=== PATIENT | male | born 1955 | race Caucasian/White ===

== ENCOUNTER 2019-05-08 12:10 | Day surgery (SDC) | payer MEDICAID ==
[~2019-05-08] VITALS: Ht 185.4 cm; Wt 127.0 kg
[2019-05-08] MEDS ORDERED: LIDOCAINE 1% INJ 20 ML 20 ML VIAL ONE (12:16)
[2019-05-08] MEDS ORDERED: HEParin (CATH LAB) 2,000 ML IV ONE (12:16)
[2019-05-08] MEDS ORDERED: NS IV 1000 ML 1,000 ML ONE (12:16)
[2019-05-08] MEDS ORDERED: NS IV 1000 ML 1,000 ML IV SCH ×2 (12:30→15:32)
[2019-05-08 12:42] VITALS: BP 145/88
[2019-05-08 12:49] LABS: HEMOGLOBIN 15.4 G/DL (13.3-17.7); MEAN PLATELET VOLUME 10.1 FL (7.4-10.4); RED CELL DISTRIBUTION WIDTH 14.1 % (10.0-14.5); WHITE BLOOD COUNT 10.2 10^3/uL (4.3-11.0)
[2019-05-08] MEDS ORDERED: PANT40TA2 PO (13:11)
[2019-05-08] MEDS ORDERED: LISI1TAB8 PO (13:11)
[2019-05-08] MEDS ORDERED: METF-399 PO (13:11)
[2019-05-08] MEDS ORDERED: ASPI-586 PO (13:11)
[2019-05-08] MEDS ORDERED: IBUP-2055 PO (13:11)
[2019-05-08] MEDS ORDERED: ACET-93 PO (13:11)
[2019-05-08] MEDS ORDERED: GLYB5TAB6 PO (13:11)
[2019-05-08] MEDS ORDERED: AMLO5TAB4 PO (13:11)
[2019-05-08] MEDS ORDERED: ATOR20TA66 PO (13:11)
[2019-05-08] MEDS ORDERED: METO-370 PO (13:11)
--- NOTE | 2019-05-08 13:11 | NUR ---
SPOKE WITH PATIENT (HE BROUGHT IN HIS BOTTLES) TO COMPLETE THE MED REC. ALL HIS BOTTLES HAD GOOD DATING AND WERE CURRENT. OTC MEDS: TYLENOL 500M TABS Q 8 H PRN ASPIRIN 81M DAILY IBUPROFEN 200M TS Q 8 H PRN
[2019-05-08 13:14] LABS: ALANINE AMINOTRANSFERASE 28 U/L (0-55); ALBUMIN 4.4 GM/DL (3.2-4.5); ALKALINE PHOSPHATASE 76 U/L (40-136); BILIRUBIN,TOTAL 0.8 MG/DL (0.1-1.0); BUN/CREATININE RATIO 13; CALCIUM 9.7 MG/DL (8.5-10.1); CARBON DIOXIDE 27 MMOL/L (21-32); CHLORIDE 101 MMOL/L (98-107); CHOLESTEROL 162 MG/DL (< 200); CREATININE SERUM 1.06 MG/DL (0.60-1.30); GFR ESTIMATED > 60; GLUCOSE 163 MG/DL (70-105); HDL CHOLESTEROL 31 MG/DL (40-60); POTASSIUM 3.8 MMOL/L (3.6-5.0); SODIUM 140 MMOL/L (135-145); TOTAL PROTEIN 7.8 GM/DL (6.4-8.2); TRIGLYCERIDES 318 MG/DL (<150); VLDL CHOLESTEROL 64 MG/DL (5-40)
[2019-05-08 13:16] LABS: PROTHROMBIN TIME PATIENT 13.1 SEC (12.2-14.7)
[2019-05-08] MEDS ORDERED: MIDAZOLAM 5 MG/5 ML (VERSED) VIAL ONE (14:24)
[2019-05-08] MEDS ORDERED: fentaNYL INJECTION 100 MCG/2 ML AMP ONE (14:24)
--- NOTE | 2019-05-08 14:53 | Cardiac Procedure Note-CS/ASA ---
Pre-Procedure Note Pre-Op Procedure Note H&P Reviewed The H&P was reviewed, patient examined and no changes noted. Date H&P Reviewed: May 08, 2019 Time H&P Reviewed: 14:53 Conscious Sedation Pre-Proced Time 14:53 ASA Score 3 For ASA 3 and 4: Consider anesthesia and medical clearance. Also, for patients with a history of failed moderate sedation consider anesthesia. Airway Lungs Heart ASA score ASA 1: a normal healthy patient ASA 2: a patient with a mild systemic disease (mid diabetes, controlled hypertension, obesity ASA 3: a patient with a severe systemic disease that limits activity (angina, COPD, prior Myocardial infarction) ASA 4: a patient with an incapacitating disease that is a constant threat to life (CHF, renal failure) ASA 5: a moribund patient not expected to survive 24 hrs. (ruptured aneurysm) ASA 6: a declared brain- patient whose organs are being harvested. For emergent operations, add the letter E after the classification Mallampati Classification Grade 2 Sedation Plan Analgesia, Amnesia, Plan communicated to team members, Discussed options with patient/fam, Discussed risks with patient/fam The patient is an appropriate candidate to undergo the planned procedure, sedation, and anesthesia. The patient immediately re-assessed prior to indication. VIVEK KATZ MD FACP FAC CCDS May 08, 2019 14:53
[2019-05-08] MEDS ORDERED: ATOR80TA76 PO (15:38)
[2019-05-08] MEDS ORDERED: ASPI-999 PO (15:38)
[2019-05-08] MEDS ORDERED: CLOP75TA69 PO (15:38)
--- NOTE | 2019-05-08 15:39 | Discharge Inst-Cardiology ---
Discharge Inst-Cardiac Problems Reviewed?: Yes Discharge Medications New Medications: Aspirin (Aspirin) 81 Mg Tab.chew 81 MG PO DAILY, #90 TAB 3 Refills Atorvastatin Calcium (Atorvastatin Calcium) 80 Mg Tablet 80 MG PO HS, #90 TAB 3 Refills Clopidogrel Bisulfate (Plavix) 75 Mg Tablet 75 MG PO DAILY, #90 TAB 3 Refills Continued Medications: Acetaminophen (Acetaminophen) 500 Mg Tablet 2000 MG PO Q8H PRN for PAIN-MILD, TAB Amlodipine Besylate (Norvasc) 5 Mg Tablet 5 MG PO DAILY, TAB Glyburide (Glyburide) 5 Mg Tablet 5 MG PO BID WITH MEALS, TAB Lisinopril/Hydrochlorothiazide (Lisinopril-Hctz 20-12.5 mg Tab) 1 Each Tablet 1 EACH PO DAILY, TAB Metoprolol Succinate (Metoprolol Succinate) 50 Mg Tab.er.24h 50 MG PO DAILY, TAB Pantoprazole Sodium (Protonix) 40 Mg Tablet.dr 40 MG PO HS, TAB Discontinued Medications: Aspirin (Aspir 81) 81 Mg Tablet.dr 81 MG PO DAILY, TAB Atorvastatin Calcium (Atorvastatin Calcium) 20 Mg Tablet 20 MG PO DAILY, TAB Ibuprofen (Ibuprofen) 200 Mg Tablet 800 MG PO Q8H PRN for PAIN-MILD, TAB Metformin HCl (Metformin HCl) 1,000 Mg Tablet 1000 MG PO BID WITH MEALS, TAB Patient Instructions Patient Instructions: RESUME METFORMIN IN PREVIOUS HOME DOSE STARTING ON THE MORNING OF 05/11/19 VIVEK KATZ MD FACP FAC CCDS May 08, 2019 15:39
--- NOTE | 2019-05-08 15:40 | Discharge Inst-Post CATH ---
Discharge Inst-CATH/EP Problems Reviewed?: Yes Post Cardiac Cath/EP D/C Inst Follow Up/Plan F/u with Dr Juarez in 1-2 weeks ACTIVITY * Go Home directly and rest. * Limit activity of the leg (or wrist if it was used) for 7 days including aerobics, swimming, jogging, bicycling, etc. * Restrict stair-climbing for 7 days if possible, if not, climb up with your non-cath leg, then bring together on the same step. * Avoid lifting, pushing, pulling or excessive movement of the affected extremity for 7 days. * Customary sexual activity may be resumed after 2 days-use caution not to use a position that strains or causes pain to the affected extremity. * No driving for 24 hours. * NO SMOKING. * Avoid straining for bowel movements for 7 days. * Gentle walking on level ground is allowed. * Returning to work will depend on the type of procedure and the results. Your doctor will discuss this with you. CALL YOUR DOCTOR FOR ANY OF THE FOLLOWING: *If bleeding from the puncture site occurs- Apply gentle pressure to site with clean cloth and call your doctor or EMS. * If a knot or lump forms under the skin, increases in size, or causes pain. * If bruising appears to be worsening or moving further down your leg instead of disappearing. * Temperature above 101 F. CARE OF YOUR GROIN INCISION; * Bruising or purple discoloration of the skin near the puncture site is common. * You may shower only, no bathtub bathing for 5 days. Be careful to avoid slipping as your leg may feel stiff. * If a closure device was used on your femoral artery, please see the attached guide regarding care of the device and your leg. * Leave dressing on FOR 24 hours. CARE OF YOUR WRIST INCISION; * Bruising or purple discoloration of the skin near the puncture site is common. * You may shower. * DO NOT submerge wrist. * Leave dressing on FOR 24 hours. VIVEK JUAREZ MD FACP FAC CCDS May 08, 2019 15:40
[2019-05-08] MEDS ORDERED: CLOPIDOGREL 75 MG (PLAVIX) TABLET PO NR (15:45)
[2019-05-08] MEDS ORDERED: PATIENT MAY USE OWN MEDS, ALL PO SCH (15:45)
[2019-05-08 15:51] VITALS: BP 117/73
--- NOTE | 2019-05-08 15:57 | CARDIAC CATHETERIZATION ---
DATE OF SERVICE: 05/08/2019 The patient is a 63-year-old gentleman who is known to have multiple coronary artery disease risk factors and who has recently been experiencing symptoms of chest discomfort. Cardiac catheterization was recommended for further evaluation. Informed consent was obtained. PROCEDURE: He was brought to the cardiac catheterization laboratory in a fasting state. Right groin was prepared and draped in the usual sterile fashion. Modified Seldinger technique was used to advance a 5-Taiwanese sheath into the right femoral vein and a 5-Taiwanese sheath in the right femoral artery. We used 5-Taiwanese JL4 catheter for left coronary angiography and 5-Taiwanese JR4 catheter for right coronary angiography. A 5-Taiwanese pigtail catheter was used for left heart catheterization and left ventricular angiography. The pigtail was then pulled back and removed. Angiography of the right femoral artery was carried out through the sheath. Mynx was used to achieve arterial hemostasis. Manual pressure was used to achieve venous hemostasis. He tolerated the procedure well. HEMODYNAMICS: Left ventricular end-diastolic pressure following coronary angiography was 7 mmHg. There was no significant pressure gradient on pullback across the aortic valve. Ascending aortic pressure was 108/69 with a mean of 85 mmHg. LEFT VENTRICULAR ANGIOGRAPHY: Left ventricular angiography was carried out in the right anterior oblique projection. Global left ventricular systolic function normal. No regional wall motion abnormalities seen. Left ventricular ejection fraction approximately 60%. CORONARY ANGIOGRAPHY: Diffuse coronary calcification is present. The left anterior descending artery, in particular, is heavily calcified. The left anterior descending artery has 50% to 60% mid vessel stenosis. The first and second diagonal branches of the left circumflex artery are of a small caliber and have up to 70% ostial and proximal stenosis. A ramus intermedius artery is of a small caliber and has 70% proximal stenosis. Left circumflex artery has 70% distal stenosis following the origin of a distal obtuse marginal. The vessel here is of a small caliber. Right coronary artery is dominant and has a 70% stenosis in its terminal posterolateral and multiple 70% stenosis in its posterior descending branch. CONCLUSIONS: 1. Diffuse moderately severe coronary artery disease with stenoses of up to 70% in the mid left anterior descending, distal left circumflex and distal right coronary. Small caliber diagonal branches also have up to 70% stenosis. 2. Normal global left ventricular systolic function with ejection fraction of 60%. 3. Normal left ventricular end-diastolic pressure. DISCUSSION AND RECOMMENDATIONS: Based on the results of the study, it appears appropriate to continue a conservative approach. Risk factor modification has been reviewed with him. Medications will be titrated on an outpatient basis. Outpatient followup is advised. Risk factor modification has been discussed with him in detail. Job ID: [id number] DocumentID: [id number] Dictated Date: 05/08/2019 15:29:45 Uniform Attendant Date: 05/08/2019 15:57:24 Dictated By: VIVEK KATZ MD, MA, FACP, FACC, MTDD
[2019-05-08 16:00] VITALS: BP 117/73
[2019-05-08 17:00] VITALS: BP 122/74
[2019-05-08 19:00] VITALS: BP 141/80
[2019-05-08 20:00] VITALS: BP 148/83
== END 2019-05-08 20:27 | disposition home or self-care (01) ==
LOC: CATH 12:10 → ICU 15:52 → CATH 20:27
PROVIDERS: ATTEND Internal Medicine Cardiovascular Disease
DX: I25.10 Atherosclerotic heart disease of native coronary artery without angina pectoris (principal); E11.621 Type 2 diabetes mellitus with foot ulcer; L97.529 Non-pressure chronic ulcer of other part of left foot with unspecified severity; R55 Syncope and collapse; E78.5 Hyperlipidemia, unspecified; E66.9 Obesity, unspecified; Z68.37 Body mass index [BMI] 37.0-37.9, adult; Z79.82 Long term (current) use of aspirin; Z79.891 Long term (current) use of opiate analgesic; Z90.49 Acquired absence of other specified parts of digestive tract; Z82.49 Family history of ischemic heart disease and other diseases of the circulatory system; Z83.3 Family history of diabetes mellitus; Z80.9 Family history of malignant neoplasm, unspecified; Z83.511 Family history of glaucoma
CPT/HCPCS: 36415; 80053; 80061; 85027; 85610; 85730; 87081; 93458

== ENCOUNTER → 2020-03-24 | Outpatient (CLI) | payer MEDICAID ==
[~2020-03-24] MED LIST: ACET-93 PO; AMLO5TAB4 PO; ASPI-586 PO; ASPI-999 PO; ATOR20TA66 PO; ATOR80TA76 PO; CLOP75TA69 PO; GLYB5TAB6 PO; IBUP-2473 PO; LISI1TAB25 PO; METF-399 PO; METO50TA7 PO; PANT40TA2 PO
== END ==
LOC: WOUNDCARE 12:49
PROVIDERS: ATTEND Surgery
DX: E11.621 Type 2 diabetes mellitus with foot ulcer (principal); E11.52 Type 2 diabetes mellitus with diabetic peripheral angiopathy with gangrene; E11.42 Type 2 diabetes mellitus with diabetic polyneuropathy; E11.65 Type 2 diabetes mellitus with hyperglycemia; I70.262 Atherosclerosis of native arteries of extremities with gangrene, left leg; L97.522 Non-pressure chronic ulcer of other part of left foot with fat layer exposed
CPT/HCPCS: 11042; A6196; G0463

== ENCOUNTER → 2020-05-07 | Outpatient (CLI) | payer MEDICAID ==
[2020-05-08 15:34] LABS: GFR ESTIMATED > 60
--- NOTE | 2020-05-09 08:09 | Diagnostic Imaging Report ---
NAME: Caesar Chandler. : 1955. EXAMINATION: CT angiogram abdomen with runoff on 05/07/2020. INDICATION: Peripheral vascular disease. TECHNIQUE: Axial imaging through the abdomen, pelvis, and bilateral lower extremities was performed after the administration of intravenous contrast utilizing CT angiography protocol. Multiplanar, 3D, and MIP reformations were also performed. COMPARISON: No prior studies are available for comparison. FINDINGS: The abdominal aorta is of normal caliber. The origin to the celiac artery is widely patent. There is a moderate amount of plaquing in the proximal aspect of the superior mesenteric artery but no high-grade stenosis is seen. The inferior mesenteric artery is patent. There are single renal arteries bilaterally. Both renal artery origins contain a large amount of calcified plaque but no high-grade stenosis is seen. There is a retroaortic left renal vein. The common iliacs demonstrate some mild calcified plaque but no high-grade stenosis is seen. The external iliac arteries are widely patent bilaterally. There is mild plaquing in both common femoral arteries but no high-grade stenosis is identified. The origins to the SFA and profunda femoris on the right are widely patent. The right superficial femoral artery demonstrates some mild generalized plaque but no high-grade stenosis is identified. The right popliteal artery also shows some atherosclerotic changes but no high-grade stenosis is identified. The proximal right anterior tibial artery is patent but terminates in the proximal calf. The tibioperoneal trunk is small but patent. The posterior tibial and peroneal arteries are very small but are patent to the level of the ankle. The origins to the left SFA and profunda femoris are widely patent. The left SFA does show diffuse mild atherosclerotic changes but no high-grade stenosis or occlusion is seen. There is some mild disease in the popliteal as well but no high-grade stenosis or occlusion is detected. The anterior tibial artery is patent proximally. This vessel appears to be very small and shows multifocal irregularity but does appear to be patent all the way to the foot. The tibioperoneal trunk is small but patent. The posterior tibial and peroneal arteries are small vessels but are patent to the ankle. IMPRESSION: Mild diffuse atherosclerotic changes are identified within the bilateral lower extremity arterial systems. There is two-vessel runoff to the right ankle via the posterior tibial and peroneal arteries. There is three-vessel runoff to the left ankle. Dictated by: Dictated on workstation # [id number]
== END ==
LOC: RAD FS 11:18
PROVIDERS: ATTEND Nurse Practitioner
DX: I70.203 Unspecified atherosclerosis of native arteries of extremities, bilateral legs (principal); E11.9 Type 2 diabetes mellitus without complications
CPT/HCPCS: 36415; 75635; 82565

== ENCOUNTER → 2020-08-01 | Outpatient (CLI) | payer MEDICAID ==
[~2020-08-01] MED LIST changes: -LISI1TAB25 PO; +LISI1TAB46 PO; +RT-ALBUTEROL SULF 2.5 MG/3 ML PRE-MIX VIAL INH ONE
== END ==
LOC: RT 14:45
PROVIDERS: ATTEND Nurse Practitioner Family
DX: R06.02 Shortness of breath (principal)
CPT/HCPCS: 94060; 94726; 94729

== ENCOUNTER → 2020-08-19 | Outpatient (CLI) | payer MEDICAID ==
[~2020-08-19] MED LIST changes: +BARIUM SUSPENSION 2.1% (VANILLA SILQ) 450 ML PO ONE; -RT-ALBUTEROL SULF 2.5 MG/3 ML PRE-MIX VIAL INH ONE
--- NOTE | 2020-08-19 12:03 | Diagnostic Imaging Report ---
PROCEDURE: CT chest and abdomen without contrast. TECHNIQUE: Axial images were obtained from the thoracic inlet through the iliac crest without the administration of intravenous contrast. Auto Exposure Controls were utilized during the CT exam to meet ALARA standards for radiation dose reduction. INDICATION: Chronic, intermittent shortness of breath and upper abdominal pressure for [address] CHEST: No definite axillary lymphadenopathy is seen. No definite mediastinal or hilar lymphadenopathy is detected. There are coronary arterial calcifications present. No pericardial or pleural fluid is identified. Pulmonary parenchymal evaluation does show some calcified nodules in the right lower lobe, consistent with granulomas. No noncalcified nodules or masses are seen. There are no infiltrates detected. The central airways appear to be patent. IMPRESSION: Essentially unremarkable noncontrast CT of the chest. CT ABDOMEN: The liver is unremarkable. The gallbladder is surgically absent. No biliary ductal dilatation is seen. Pancreas and spleen are unremarkable. No adrenal mass is detected. No renal calculi or hydronephrosis is detected. There is a low-density lesion involving the left kidney measuring 2.4 cm in size and suggestive of a cyst. Aorta is calcified but non-aneurysmal. The visualized bowel loops are normal caliber. There is no free fluid or fluid collection. Bony structures are unremarkable. IMPRESSION: 1. Essentially unremarkable noncontrast CT of the abdomen apart from a small left renal cyst. No acute feature is detected. Dictated by: Dictated on workstation # [id number]
== END ==
LOC: RAD FS 09:39
PROVIDERS: ATTEND Nurse Practitioner Family
DX: N28.1 Cyst of kidney, acquired (principal); R06.02 Shortness of breath
CPT/HCPCS: 71250; 74150

== ENCOUNTER → 2021-04-15 | Outpatient (CLI) | payer MEDICAID ==
[~2021-04-15] MED LIST changes: -BARIUM SUSPENSION 2.1% (VANILLA SILQ) 450 ML PO ONE; +GLBR5T PO; -GLYB5TAB6 PO
--- NOTE | 2021-04-15 16:38 | Diagnostic Imaging Report ---
CLINICAL INDICATION: Patient with degenerative disk disease. EXAM: MRI of the lumbar spine performed without IV contrast. Sequences include sagittal T2, sagittal T1, sagittal T2 fat-sat, and axial T2. COMPARISON: None. FINDINGS: There is no acute lumbar spine fracture. There is chronic bilateral L5 spondylolysis with roughly 6 mm of grade 1 anterolisthesis of L5 on S1. There are hypertrophic spurs throughout the lumbar spine and facet arthropathy. The visualized portions of the distal thoracic spinal cord, conus medullaris, and cauda equina nerve roots are unremarkable. The conus medullaris tip is seen at the upper L1 vertebral body level. There is no significant paraspinal soft tissue abnormality. L1-L2: There is a mild diffuse disk bulge with mild loss of disk space height. There is cbfa-qu-vrfzozqo bilateral facet arthropathy. There is no significant central canal narrowing. There is no significant neural foramen narrowing. L2-L3: There is a diffuse disk bulge with severe loss of disk space height. There is nipl-jx-nuttbcqg bilateral facet arthropathy. There are disk herniations extending into the right foraminal region and far right lateral region. There is iettqrxg-av-znmqtz right neural foramen narrowing and mild left neural foramen narrowing. There is racq-up-vtbmoeas central canal stenosis. L3-L4: There is a mild diffuse disk bulge with hypertrophic anterior disk spurs. There is moderate bilateral facet arthropathy. There is no significant central canal stenosis. There is mild right neural foramen narrowing and no significant left neural foramen narrowing. L4-L5: There is grade 1 retrolisthesis of L4 on L5. There is a diffuse disk bulge with moderate loss of disk space height. There are disk spurs which extend posteriorly and into the foraminal regions bilaterally. There is xdijeatq-jg-kmdeko bilateral neural foramen narrowing. There is no significant central canal stenosis. L5-S1: There is diffuse disk bulge with slight uncovering of the posterior aspect of the disk. There is severe bilateral facet arthropathy/hypertrophy. Questionable postop changes or laminectomy in the right L5-S1 region versus chronic bony deformity. There is no significant central canal stenosis. There is severe left neural foramen narrowing and moderate to severe right neural foramen narrowing. IMPRESSION: 1: There is moderate to severe multilevel lumbar spine degenerative disease with diffuse disk bulges, disk spurs, and facet arthropathy. 2: There is chronic bilateral L5 spondylolysis with grade 1 anterolisthesis of L5 on S1. 3: There is grade 1 retrolisthesis of L4 on L5. Dictated by: Dictated on workstation # [id number]
== END ==
LOC: RAD 14:00
PROVIDERS: ATTEND Family Medicine
DX: M47.816 Spondylosis without myelopathy or radiculopathy, lumbar region (principal); M51.26 Other intervertebral disc displacement, lumbar region; M51.36 Other intervertebral disc degeneration, lumbar region; M43.17 Spondylolisthesis, lumbosacral region
CPT/HCPCS: 72148

== ENCOUNTER → 2021-04-24 | Outpatient (CLI) | payer MEDICAID | LOC: WOUNDCARE 13:51 | PROVIDERS: ATTEND Orthopaedic Surgery Hand Surgery | DX: E11.621 Type 2 diabetes mellitus with foot ulcer (principal); L97.521 Non-pressure chronic ulcer of other part of left foot limited to breakdown of skin; L84 Corns and callosities; I73.9 Peripheral vascular disease, unspecified; I87.2 Venous insufficiency (chronic) (peripheral) | CPT/HCPCS: 97597; A6197; G0463 ==

== ENCOUNTER → 2021-05-05 | Outpatient (CLI) | payer MEDICAID | LOC: WOUNDCARE 14:32 | PROVIDERS: ATTEND Surgery | DX: E11.621 Type 2 diabetes mellitus with foot ulcer (principal); L97.521 Non-pressure chronic ulcer of other part of left foot limited to breakdown of skin; L84 Corns and callosities; I73.9 Peripheral vascular disease, unspecified; I87.2 Venous insufficiency (chronic) (peripheral) | CPT/HCPCS: 99212 ==

== ENCOUNTER 2021-06-25 14:42 | Emergency (ER) | payer MEDICAID ==
--- OUTSIDE RECORDS SUMMARY | 2021-06-25 14:47 | XMS REPORT | Clinical Summary ---
Author Author [facility] Organization [facility] Address Unknown Phone Unavailable Care Team Providers Care Sports Official Name Role Phone Self, Willi PATTERSON PCP Source Comments Some departments are not documenting in the electronic medical record. If you d o not see the information that you expected, contact Release of Information in merged with [facility] [employer] Information Management department at [phone] for further assistan ce in locating additional records.[facility] Allergies No Known Active Allergies Medications End Date Status Medication Sig Dispensed Refills Start Date Active atorvastatin (LIPITOR) 10 TK 1 T PO D 1 9/201 mg tablet 8 Active glyBURIDE (DIABETA) 5 mg 1 tablet 8 Active lisinopriL-hydrochlorothi 1 tablet 2 azide (ZESTORETIC) 20-25 daily. 8 mg tablet Active metFORMIN (GLUCOPHAGE) TK 1 T PO BID 0 01 1,000 mg tablet WC [address] TK 1 T PO D 1 (PROTONIX) 40 mg tablet 8 Active rosuvastatin (CRESTOR) 20 Take 20 mg by 0 12/19 mg tablet mouth daily. 1 Active vitamins, multiple tablet Take 1 tablet 0 by mouth daily. Active amLODIPine (NORVASC) 5 mg Take 5 mg by 0 10/21 tablet mouth daily. 1 Active clopiDOGrel (PLAVIX) 75 Take 75 mg by 0 mg tablet mouth daily. Active metoprolol tartrate Take 50 mg by 0 (LOPRESSOR) 50 mg tablet mouth. Active linaCLOtide (LINZESS) 72 Take 72 mcg 0 mcg capsule by mouth daily. 05/29/2021 Discontinued plecanatide (TRULANCE) 3 Take 1 tablet 0 mg tabIndications: by mouth constipation predominant daily. irritable bowel syndrome Indications: irritable bowel syndrome with constipation 05/29/2021 Discontinued linaclotide (LINZESS) 290 Take one 30 capsule 1 mcg capsuleIndications: capsule by 1 chronic idiopathic mouth daily. constipation Indications: chronic idiopathic constipation Active Problems Not on file Encounters Care Team Description Date Type Specialty Davy Iraheta MD Medication Question 05/29/2021 Telephone Gastroenterology from Last 3 Months Medical History Medical History Date Comments Irritable bowel disease Social History Date Tobacco Use Types Packs/Day Years Used Never Smoker Smokeless Tobacco: Never Used Comments Alcohol Use Standard Drinks/Week Not Currently 0 (1 standard drink = 0.6 o z pure alcohol) Sex Assigned at Date Recorded Not on file Last Filed Vital Signs Reading Time Taken Comments Vital Sign 139/86 04/17/2018 1:11 PM CDT Blood Pressure 89 04/17/2018 1:11 PM CDT Pulse - - Temperature 16 04/17/2018 1:11 PM CDT Respiratory Rate - - Oxygen Saturation - - Inhaled Oxygen Concentration 145.2 kg (320 lb) 04/17/2018 1:11 PM CDT Weight 185.4 cm (6' 1") 04/17/2018 1:11 PM CDT Height 42.22 04/17/2018 1:11 PM CDT Body Mass Index Plan of Treatment Health Maintenance Due Date Last Done Comments HIV SCREENING 1971 DTAP/TDAP VACCINES (1 - 1974 Tdap) HEPATITIS C SCREENING 1974 PHYSICAL (COMPREHENSIVE) 1974 EXAM COLORECTAL CANCER 2006 SCREENING SHINGLES RECOMBINANT 2006 VACCINE (1 of 2) INFLUENZA VACCINE 04/19/2021 Results Not on filefrom Last 3 Months Insurance Type Payer Benefit Subscriber ID Effective Phone Address Plan / Dates Group Medicaid [employer] [place] [place] [employer] [id number] 2017-P [employer]AN [place] [address] [place] (Home) [place] [phone] 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
--- OUTSIDE RECORDS SUMMARY | 2021-06-25 14:47 | XMS REPORT | Encounter Summary ---
Author Author [facility] Organization [facility] Address Unknown Phone Unavailable Care Team Providers Care Ferryboat Operator Name Role Phone Self, Willi PATTERSON PCP Reason for Visit * Reason Onset Date Comments Medication Question 05/29/2021 Encounter Details Care Team Description Date Type Department Davy Iraheta MD [address] [place] [address] Medication Question 05/29/2021 Telephone Gastroenterology: [facility] [address] Social History Date Tobacco Use Types Packs/Day Years Used Never Smoker Smokeless Tobacco: Never Used Comments Alcohol Use Standard Drinks/Week Not Currently 0 (1 standard drink = 0.6 o z pure alcohol) Sex Assigned at Date Recorded Not on file documented as of this encounter Functional Status Date of Assessment Functional Status Response 04/17/2018 Does the patient have a hearing impairment: No 04/17/2018 Does the patient have a visual impairment: Yes 04/17/2018 Does the patient have impaired ambulation: No 04/17/2018 Does the patient have an activity of daily living Ye s (ADL) impairment: 04/17/2018 Does the patient have an instrumental activity of No daily living (IADL) impairment: Date of Assessment Cognitive Status Response 04/17/2018 Does the patient have a cognitive impairment: No documented as of this encounter Miscellaneous Notes * Telephone Encounter - Chey Cortes RN - 05/29/2021 10:54 AM CDT VM from pt with questions on linzess Rx. Call returned to pt. Pt wanting to clarify dosage as he just received 290 mcg bu t was taking 72. Discussed with pt that we did ordered 290 mcg and unsure why he was receiving 290 mcg. Pt reports that he has been doing well with taking the 72 mcg QD and would like to continue this dosage. Instructed pt that we would up date his med list to make sure further refills are for linzess 72 mcg. Pt denies need for refills at this time. Pt verbalized understanding with no further ques tions or concerns at this time. documented in this encounter Plan of Treatment Not on filedocumented as of this encounter Visit Diagnoses Diagnosis Chronic constipation Unspecified constipation Abdominal pain, RUQ Abdominal pain, right upper quadrant documented in this encounter Discontinued Medications Start Date End Date Medication Sig Discontinue Reason 05/29/2021 plecanatide (TRULANCE) 3 Take 1 mg tabIndications: tablet by constipation predominant mouth daily. irritable bowel syndrome Indications: irritable bowel syndrome with constipation 01/21/2021 05/29/2021 linaclotide (LINZESS) 290 Take one mcg capsuleIndications: capsule by chronic idiopathic mouth daily. constipation Indications: chronic idiopathic constipation documented as of this encounter Historical Medications * This list may reflect changes made after this encounter. Start Date End Date Medication Sig Dispensed Refills linaCLOtide (LINZESS) 72 Take 72 mcg 0 mcg capsule by mouth daily. added in this encounter Additional Health Concerns Assessment Noted Time A fall risk assessment has been completed for the pat ient 04/17/2018 1:11 PM CDT documented as of this encounter
[2021-06-25] MEDS ORDERED: NS IV 1000 ML 1,000 ML IV STA (14:52)
[2021-06-25] MEDS ORDERED: ONDANSETRON 4 MG/2 ML (SDV) Z0FRAN IVP STA (14:52)
[2021-06-25] MEDS ORDERED: PANTOPRAZOLE 40 MG (PROTONIX) VIAL IV STA (14:54)
[2021-06-25] MEDS ORDERED: ASPIRIN 81 MG CHEW (CHILDREN'S ASA) PO ONE (15:00)
[2021-06-25] MEDS ORDERED: morphine INJ 10 MG/ML 1ML (SYR OR VIAL) IVP ONE (15:00)
[2021-06-25] MEDS: NITROGLYCERIN 0.4 MG SL TABS BTL 25'S SL PRN ×2 (15:01→15:34)
--- NOTE | 2021-06-25 15:03 | ED Chest Pain ---
General Chief Complaint: Chest Pain Stated Complaint: CHEST/LT ARM PAIN Source: patient, old records History of Present Illness Date Seen by Provider: Jun 25, 2021 Time Seen by Provider: 14:43 Initial Comments 65 yo male presenting with complaint of chest pain radiating to left arm with numbness and tingling in left arm. He states this started around 1400 when he was working on his trailer. He has nausea, shortness of breath, diaphoresis, feeling of indigestion. He reports symptoms are worse with exertion, such as walking in to the ED from his vehicle. He has history of cholesterol plaque build up in his arteries and states Dr. Juarez had put him on Plavix (Clopidogrel) and Metoprolol. He took it until there were no more refills and Dr. Juarez did not refill it anymore so he stopped taking it. He has not taken anything for his symptoms. He has diabetes, high blood pressure, hypercholesterolemia. Timing/Duration: 1 hour (about 45 min to an hour), changing over time (improved with rest but worsens with exertion) Severity/Quality: moderate, ingestion Location: substernal, epigastric Radiation: arms (left) Activities at Onset: activity (working on trailer) Prior CP/Workup: angina, cardiac cath (2019 diffuse atherosclerotic build up 70% or more) Modifying Factors: worse with exercise; improves with rest ASA po WORLD DESIGNER: No NTG SL WORLD DESIGNER: No Associated Symptoms: No abdominal pain; back pain (chronic back pain), diaphoresis; No dizziness, No edema; fatigue; No fever/chills, No headache; heartburn, nausea/vomiting (nausea without vomiting); No rash; shortness of breath; No swelling/lump in chest, No syncope Allergies and Home Medications Allergies Coded Allergies: No Known Allergies (Verified Allergy, Unknown, 05/08/19) Patient Home Medication List Home Medication List Reviewed: Yes Acetaminophen (Acetaminophen) 500 Mg Tablet, 2,000 MG PO Q8H PRN for PAIN-MILD, (Reported) Entered as Reported by: BERENICE OTTO on 05/08/19 1311 Amlodipine Besylate (Norvasc) 5 Mg Tablet, 5 MG PO DAILY, (Reported) Entered as Reported by: BERENICE OTTO on 05/08/19 1311 Aspirin (Aspirin) 81 Mg Tab.chew, 81 MG PO DAILY Prescribed by: VIVEK JUAREZ on 05/08/19 1538 Atorvastatin Calcium (Atorvastatin Calcium) 80 Mg Tablet, 80 MG PO HS Prescribed by: VIVEK JUAREZ on 05/08/19 153 Clopidogrel Bisulfate (Plavix) 75 Mg Tablet, 75 MG PO DAILY Prescribed by: VIVEK JUAREZ on 05/08/19 153 Clopidogrel Bisulfate (Clopidogrel) 75 Mg Tablet, 75 MG PO DAILY Prescribed by: DANIEL CUNHA on 06/25/21 182 Glyburide (Glyburide) 5 Mg Tablet, 5 MG PO BID WITH MEALS, (Reported) Entered as Reported by: BERENICE OTTO on 05/08/19 131 Lisinopril/Hydrochlorothiazide (Lisinopril-Hctz 20-12.5 mg Tab) 1 Each Tablet, 1 EACH PO DAILY, (Reported) Entered as Reported by: BERENICE OTTO on 05/08/19 131 Metoprolol Succinate (Metoprolol Succinate) 50 Mg Tab.er.24h, 50 MG PO DAILY, (Reported) Entered as Reported by: BERENICE OTTO on 05/08/19 131 Metoprolol Succinate (Metoprolol Succinate) 50 Mg Tab.er.24h, 50 MG PO DAILY Prescribed by: DANIEL CUNHA on 06/25/21 182 Pantoprazole Sodium (Protonix) 40 Mg Tablet.dr, 40 MG PO HS, (Reported) Entered as Reported by: BERENICE OTTO on 05/08/19 131 Review of Systems Review of Systems Constitutional: No chills, No fever EENTM: No Symptoms Reported Respiratory: See HPI, SOA With Exertion, SOA at Rest Cardiovascular: See HPI, Chest Pain Gastrointestinal: Nausea; Denies Vomiting Genitourinary: No Symptoms Reported Musculoskeletal: see HPI Skin: No rash Psychiatric/Neurological: Denies Headache Past Tyxolmb-Oqxafq-Dohszu Hx Patient Social History Tobacco Use?: No Use of E-Cig and/or Vaping dev: No Substance use?: No Alcohol Use?: No Immunizations Up To Date First/Initial COVID19 Vaccinat: 2020 Second COVID19 Vaccination Kevin: 2020 COVID19 Vaccine Professional Skater: Thea Past Medical History Gallbladder Respiratory: No Currently Using CPAP: No Currently Using BIPAP: No Cardiac: Yes High Cholesterol, Hypertension Neurological: No Genitourinary: No Gastrointestinal: No Cancer: No Blood Disorders: No Physical Exam Vital Signs Vital Signs - First Documented 06/25/21 14:51 Temp 36.2 Pulse 115 Resp 21 B/P (MAP) 150/99 (116) Pulse Ox 95 O2 Delivery Room Air Capillary Refill : Less Than 3 Seconds Height, Weight, BMI Height: 6'1.00" Weight: 280lbs. 0.0oz. 127.920770wy; 36.9 BMI Method: General Appearance: Mild Distress HEENT: PERRL/EOMI, Pharynx Normal Neck: Full Range of Motion, Normal Inspection, Non Tender, Supple Respiratory: Chest Non Tender, Lungs Clear, Normal Breath Sounds, No Accessory Muscle Use, No Respiratory Distress Cardiovascular: Regular Rate, Rhythm, Normal Peripheral Pulses Gastrointestinal: Normal Bowel Sounds, No Pulsatile Mass, Non Tender, Soft Extremity: Normal Capillary Refill, Normal Inspection, No Pedal Edema Neurologic/Psychiatric: Alert, Oriented x3 Skin: Normal Color, Diaphoresis Progress/Results/Core Measures Results/Orders Lab Results Laboratory Tests Test 06/25/21 14:50 06/25/21 17:57 Range/Units White Blood Count 9.7 4.3-11.0 10^3/uL Red Blood Count 5.13 4.30-5.52 10^6/uL Hemoglobin 15.3 13.3-17.7 g/dL Hematocrit 44 40-54 % Mean Corpuscular Volume 86 80-99 fL Mean Corpuscular Hemoglobin 30 25-34 pg Mean Corpuscular Hemoglobin Concent 35 32-36 g/dL Red Cell Distribution Width 14.2 10.0-14.5 % Platelet Count 232 130-400 10^3/uL Mean Platelet Volume 9.7 9.0-12.2 fL Immature Granulocyte % (Auto) 1 % Neutrophils (%) (Auto) 79 H 42-75 % Lymphocytes (%) (Auto) 13 12-44 % Monocytes (%) (Auto) 5 0-12 % Eosinophils (%) (Auto) 2 0-10 % Basophils (%) (Auto) 1 0-10 % Neutrophils # (Auto) 7.7 1.8-7.8 X 10^3 Lymphocytes # (Auto) 1.3 1.0-4.0 X 10^3 Monocytes # (Auto) 0.5 0.0-1.0 X 10^3 Eosinophils # (Auto) 0.2 0.0-0.3 10^3/uL Basophils # (Auto) 0.1 0.0-0.1 10^3/uL Prothrombin Time 12.4 12.2-14.7 SEC INR Comment 0.9 0.8-1.4 Activated Partial Thromboplast Time 24 24-35 SEC Sodium Level 140 135-145 MMOL/L Potassium Level 4.3 3.6-5.0 MMOL/L Chloride Level 103 98-107 MMOL/L Carbon Dioxide Level 24 21-32 MMOL/L Anion Gap 13 5-14 MMOL/L Blood Urea Nitrogen 25 H 7-18 MG/DL Creatinine 0.98 0.60-1.30 MG/DL Estimat Glomerular Filtration Rate 77 BUN/Creatinine Ratio 26 Glucose Level 302 H 70-105 MG/DL Calcium Level 9.2 8.5-10.1 MG/DL Corrected Calcium 9.0 8.5-10.1 MG/DL Magnesium Level 1.7 1.6-2.4 MG/DL Total Bilirubin 0.4 0.1-1.0 MG/DL Aspartate Amino Transf (AST/SGOT) 14 5-34 U/L Alanine Aminotransferase (ALT/SGPT) 16 0-55 U/L Alkaline Phosphatase 71 40-136 U/L Troponin I < 0.30 < 0.30 <0.30 NG/ML Pro-B-Type Natriuretic Peptide 337.3 H <75.0 PG/ML Total Protein 7.0 6.4-8.2 GM/DL Albumin 4.3 3.2-4.5 GM/DL Lipase 29 8-78 U/L My Orders Orders - DANIEL CUNHA MD Cbc With Automated Diff (06/25/21 14:52) Magnesium (06/25/21 14:52) Chest 1 View Ap/Pa Only (06/25/21 14:52) Ekg Tracing (06/25/21 14:52) Comprehensive Metabolic Panel (06/25/21 14:52) Protime With Inr (06/25/21 14:52) Partial Thromboplastin Time (06/25/21 14:52) O2 (06/25/21 14:52) Monitor-Rhythm Ecg Trace Only (06/25/21 14:52) Aspirin Chewable Tablet (Baby Aspirin Ch (06/25/21 15:00) Nitroglycerin 0.4 Mg Btl 25's (Nitrostat (06/25/21 15:00) Ed Iv/Invasive Line Start (06/25/21 14:52) Lipase (06/25/21 14:52) Troponin I Fs (06/25/21 14:52) Probnp Fs (06/25/21 14:52) Morphine Injection (Morphine Injection (06/25/21 15:00) Ns Iv 1000 Ml (Sodium Chloride 0.9%) (06/25/21 14:52) Ondansetron Injection (Zofran Injectio (06/25/21 14:52) Pantoprazole Injection (Protonix Injecti (06/25/21 14:54) Troponin I Fs (06/25/21 18:00) Enoxaparin Injection (Lovenox Injection) (06/25/21 16:59) Metoprolol Succinate (Xl) Tab (Toprol Xl (06/25/21 16:59) Clopidogrel Tablet (Plavix Tablet) (06/25/21 16:59) Medications Given in ED Current Medications Medications Dose Ordered Sig/Cuauhtemoc Route Start Time Stop Time Status Last Admin Dose Admin Aspirin 324 mg ONCE ONCE PO 06/25/21 15:00 06/25/21 15:01 DC 06/25/21 15:03 324 MG Morphine Sulfate 2 mg ONCE ONCE IVP 06/25/21 15:00 06/25/21 15:01 DC 06/25/21 15:04 2 MG Nitroglycerin 0.4 mg UD PRN SL 06/25/21 15:00 06/25/21 18:38 DC 06/25/21 15:34 0.4 MG Vital Signs/I&O 06/25/21 06/25/21 14:51 18:38 Temp 36.2 36.2 Pulse 115 87 Resp 21 18 B/P (MAP) 150/99 (116) 137/87 Pulse Ox 95 96 O2 Delivery Room Air Room Air Progress Progress Note #1: Progress Note Order lab, ECG, CXR. Give aspirin 324 mg po to chew. Zofran 4 mg IV for nausea, 1 Liter NS for tachycardia, Morphine in addition to sublingual Nitroglycerin for chest pain. ECG shows LBBB but no old tracing for comparison. Differential diagnosis includes myocardial infarction, pneumonia, hiatal hernia, gerd with esophagitis, non-stemi. Progress Note #2: Progress Note Prior heart cath in 2019 showed 70% stenosis in multiple coronary arteries. He has borderline enlarged heart and mild increase in pulmonary vascular congestion without infiltrate or effusion. CBC does not show acute significant abnormality. he reports his symptoms are a little better after treatment but he still had sensation of indigestion. pain and numbness into left arm is now just numb tingling feeling in his fingers. Will repeat sublingual ntg for his discomfort in chest with indigestion while waiting on labs. Progress Note #3: Time: 16:01 Progress Note Coags are normal. Chemistry shows troponin is <0.3. proBNP is 337. Glucose is 302. 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 Considering his DM, High cholesterol history, HTN, and previous heart cath the indigestion and numbness/tingling in fingers could be anginal equivalent. 1605 d/w Dr. Juarez and he advised if symptoms resolved then he could get 2nd set of enzymes and if still negative then could follow up as outpt and get back on metoprolol and plavix. Other option is admit for serial enzymes and monitoring with cardiology consult. When discussed with pt he stated he did not want to be admitted as he had things he had to do yet tonight. He was willing to stay and see what the enzymes were at 1800 which would be 4 hours post onset. Progress Note #4: Time: 18:22 Progress Note Repeat Troponin still <0.3. Pt reports his chest pain/indigestion is resolved. Prescribe Metoprolol and plavix and encourage pt to follow up with Dr. Juarez and Dr. Pierson. 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 From review of his electronic medical record from [facility] he had an ECG done in 2018 that did not show LBBB. so the LBBB is new since 2018. Initial ECG Impression Date: Jun 25, 2021 Initial ECG Impression Time: 14:42 Initial ECG Rate: 115 Initial ECG Rhythm: S.Tach Initial ECG Comparisson: No Previous ECG Available Comment Sinus tachycardia with a heart rate of 115 bpm. Frequent PVCs. AL interval 142 ms. QT interval 399 ms and a QTc interval of 552 ms. Left bundle branch block is present. No definite ST elevation. No prior tracing available for comparison. Diagnostic Imaging Diagonstic Imaging: Xray Plain Films/CT/US/NM/MRI: chest Comments NAME: WILIAM NATHAN [facility] REC#: [id number] PT STATUS: REG ER : 1955 PHYSICIAN: DANIEL CUNHA MD ADMIT DATE: 06/25/21/ER FS Draft Date of Exam:06/25/21 CHEST 1 VIEW AP/PA ONLY INDICATION: chest pain, indigestion. TECHNIQUE: Single view chest 2:43 PM. CORRELATION STUDY: None FINDINGS: Heart size and vasculature appearing borderline. The lungs are clear with no consolidating infiltrate. Nodular densities projecting just below the diaphragm on the right lung base compatible with granulomas. There is no significant effusion or pneumothorax. IMPRESSION: 1. Borderline heart size and vasculature. No consolidating infiltrate. Dictated on workstation # [id number] Dict: 06/25/21 1519 Trans: 06/25/21 1521 DO [id number] Interpreted by: AJ FERNANDEZ DO Electronically signed by: Reviewed: Reviewed by Me Departure Impression Primary Impression: Chest pain on exertion Additional Impression: Left bundle branch block (LBBB) on electrocardiogram Disposition: HOME, SELF-CARE Condition: Stable Departure-Patient Inst. Decision time for Depature: 18:23 Referrals: VIVEK JUAREZ MD FACP FAC RICKY WELCH MD (PCP/Family) Primary Care Physician Patient Instructions: Chest Pain, Adult ED Add. Discharge Instructions: Your Troponin tests to check for heart damage from a heart attack was negative. You still can have narrowing of the arteries of the heart causing you to have pain with exertion. If you have worsening chest pains, arm pain then seek medical care right away so that you can be evaluated again. Call Dr. Juarez for follow up appointment about your pain and symptoms today. Follow up with Dr. Pierson as well about your symptoms. Restart the Metoprolol and Clopidogrel (Plavix). Continue your regular medicines. All discharge instructions reviewed with patient and/or family. Voiced understanding. Scripts Clopidogrel Bisulfate (Clopidogrel) 75 Mg Tablet 75 MG PO DAILY for Coronary Artery Disease for 30 Days, #30 TAB 0 Refills Prov: DANIEL CUNHA MD 06/25/21 Metoprolol Succinate (Metoprolol Succinate) 50 Mg Tab.er.24h 50 MG PO DAILY for coronary artery disease/HTN for 30 Days, #30 TAB 0 Refills Prov: DANIEL CUNHA MD 06/25/21 DANIEL CUNHA MD Jun 25, 2021 15:03
[2021-06-25 15:08] LABS: HEMOGLOBIN 15.3 g/dL (13.3-17.7); MEAN CORPUSCULAR HEMOGLOBIN 30 pg (25-34); WHITE BLOOD COUNT 9.7 10^3/uL (4.3-11.0)
[2021-06-25 15:09] LABS: BASOPHILS % (AUTO) 1 % (0-10); EOSINOPHILS % (AUTO) 2 % (0-10); HEMATOCRIT 44 % (40-54); LYMPHOCYTES # (AUTO) 1.3 X 10^3 (1.0-4.0); LYMPHOCYTES % (AUTO) 13 % (12-44); MEAN CORPUSCULAR HGB CONC 35 g/dL (32-36); MEAN CORPUSCULAR VOLUME 86 fL (80-99); MEAN PLATELET VOLUME 9.7 fL (9.0-12.2); MONOCYTES # (AUTO) 0.5 X 10^3 (0.0-1.0); MONOCYTES % (AUTO) 5 % (0-12); NEUTROPHILS # (AUTO) 7.7 X 10^3 (1.8-7.8); NEUTROPHILS % (AUTO) 79 % (42-75); PLATELET COUNT 232 10^3/uL (130-400)
[2021-06-25 15:10] LABS: BASOPHILS # (AUTO) 0.1 10^3/uL (0.0-0.1); EOSINOPHILS # (AUTO) 0.2 10^3/uL (0.0-0.3)
--- NOTE | 2021-06-25 15:21 | Diagnostic Imaging Report ---
INDICATION: chest pain, indigestion. TECHNIQUE: Single view chest 2:43 PM. CORRELATION STUDY: None FINDINGS: Heart size and vasculature appearing borderline. The lungs are clear with no consolidating infiltrate. Nodular densities projecting just below the diaphragm on the right lung base compatible with granulomas. There is no significant effusion or pneumothorax. IMPRESSION: 1. Borderline heart size and vasculature. No consolidating infiltrate. Dictated by: Dictated on workstation # [id number]
[2021-06-25 15:48] LABS: CALCIUM 9.2 MG/DL (8.5-10.1); CREATININE SERUM 0.98 MG/DL (0.60-1.30); POTASSIUM 4.3 MMOL/L (3.6-5.0)
[2021-06-25 15:49] LABS: ALBUMIN 4.3 GM/DL (3.2-4.5); BILIRUBIN,TOTAL 0.4 MG/DL (0.1-1.0); MAGNESIUM 1.7 MG/DL (1.6-2.4)
[2021-06-25 15:53] LABS: INR 0.9 (0.8-1.4); PROTHROMBIN TIME PATIENT 12.4 SEC (12.2-14.7)
[2021-06-25] MEDS ORDERED: meTOproloL SUCCINATE 50 MG (TOPROL XL) TAB PO STA (16:59)
[2021-06-25] MEDS ORDERED: CLOPIDOGREL 75 MG (PLAVIX) TABLET PO STA (16:59)
[2021-06-25] MEDS ORDERED: ENOXAPARIN 60 MG/0.6 ML (LOVENOX) SYR SC STA (16:59)
[2021-06-25] MEDS ORDERED: CLOP75TA28 PO (18:28)
[2021-06-25] MEDS ORDERED: METO50TA7 PO (18:28)
[2021-06-25 18:38] VITALS: BP 137/87
== END 2021-06-25 18:37 | disposition home or self-care (01) ==
LOC: EDUNIT# 14:42 → ER FS 14:43
DX: R07.89 Other chest pain (principal); I44.7 Left bundle-branch block, unspecified; I10 Essential (primary) hypertension; E78.00 Pure hypercholesterolemia, unspecified; E11.9 Type 2 diabetes mellitus without complications; Z79.82 Long term (current) use of aspirin; Z79.01 Long term (current) use of anticoagulants; Z79.899 Other long term (current) drug therapy
CPT/HCPCS: 36415; 71045; 80053; 83690; 83735; 83880; 84484; 85025; 85610; 85730; 93005; 93041

== ENCOUNTER → 2021-07-28 | Outpatient (CLI) | payer MEDICAID ==
[~2021-07-28] MED LIST changes: +CLOP75TA28 PO
== END ==
LOC: CARD 14:30
PROVIDERS: ATTEND Internal Medicine Cardiovascular Disease
DX: I51.7 Cardiomegaly (principal); I34.8 Other nonrheumatic mitral valve disorders
CPT/HCPCS: 93306

== ENCOUNTER 2021-08-11 09:00 | Day surgery (SDC) | payer MEDICAID ==
[~2021-08-11] VITALS: Ht 185.4 cm; Wt 120.6 kg
[2021-08-11] VITALS (7 sets, daily range): BP systolic 112–163; BP diastolic 72–96
--- OUTSIDE RECORDS SUMMARY | 2021-08-11 07:11 | XMS REPORT | Encounter Summary ---
Author Author [facility] Organization [facility] Address Unknown Phone Unavailable Care Team Providers Care Field Return Repairer Name Role Phone Self, Willi PATTERSON PCP Reason for Visit * Reason Onset Date Comments Patient Instructions 07/15/2021 Encounter Details Care Team Description Date Type Department Davy Iraheta MD [address] [place] [address] Patient Instructions 07/15/2021 Telephone Gastroenterology: [address] [address] Social History Date Tobacco Use [...] Telephone Encounter - Chey Cortes RN - 07/15/2021 9:49 AM CDT Call placed to pt to discuss AVS from telephone appt today 07/15. Provided pt with fax number for [facility] to send OV note s. Instructed pt to call us in one week to follow up on increased linzess dosage . Pt verbalized understanding with no further questions or concerns at this time . documented in this encounter Plan of Treatment Not on filedocumented as of this encounter Visit Diagnoses Not on filedocumented in this encounter Additional Health Concerns Noted Time Assessment 07/15/2021 1:50 PM CDT A fall risk assessment has been complet ed for the patient documented as of this encounter Care Teams Start Date End Date Field Return Repairer Relationship Specialty 03/08/18 Willi Pierson MD PCP - General Family Medicine documented as of this encounter
--- OUTSIDE RECORDS SUMMARY | 2021-08-11 07:11 | XMS REPORT | Encounter Summary ---
Author Author [facility] Organization [facility] Address Unknown Phone Unavailable Care Team Providers Care Life Cycle Assessment Analyst Name Role Phone Self, Willi PATTERSON PCP Reason for Referral * Radiology Services (Routine) - New Request Diagnoses / Procedures Referred By Contact Referred To Conta ct Specialty Diagnoses Chronic constipation Abdominal pain, RUQ Procedures CT ABD/PELV W CONTRAST Davy Iraheta MD [address] [place] [address] Radiology Referral ID Status Reason Start Date Expiration Visits Vi sits Date Requested Authorized [id number] New Request 07/15/2021 07/15/2022 1 1 Reason for Visit * Reason Comments Follow Up Encounter Details Care Team Description Date Type Department Davy Iraheta MD [address] [place] [address] Chronic constipation (Primary Dx); Abdominal pain, RUQ; Chest pain, unspecified type 07/15/2021 Scheduled Gastroenterology: Jamie gee [facility], [address], [address] [address] Social History Date Tobacco Use Types Packs/Day Years Used Never Smoker Smokeless Tobacco: Never Used Comments Alcohol Use Standard Drinks/Week Not Currently 0 (1 standard drink = 0.6 o z pure alcohol) Sex Assigned at Date Recorded Not on file Date Recorded COVID-19 Exposure Response 07/15/2021 1:20 PM CDT In the last month, have you been in contact with No / Unsure someone who was confirmed or suspected to have Coronavirus / COVID-19? documented as of this encounter Functional Status [...] impairment: No documented as of this encounter Progress Notes * Davy Iraheta MD - 07/15/2021 9:00 AM CDT Telehealth Visit Note Date of Service: 07/15/2021 Subjective: Obtained patient's verbal consent to treat them and their agreement to [facility] policy and NPP via this telehealth visit during the Coronavirus Public He alth Emergency Musa Grubbs is a 65 y.o. male. History of Present Illness Musa Grubbs He is a 65-year-old male with a history of cholecystectomy in 003, coronary artery disease, diabetes, hypertension, hyperlipidemia, and right- sided abdominal pain and constipation who presents to GI telemedicine clinic via telephone call for follow-up. He reports since his last visit in January 2021 his symptoms have remained relativel y stable. He continues to experience chest pain that radiates to his arms and o ccurs with activity. We placed a cardiology referral in January 2021, however, he h as yet to be seen. He reports that he is going to see a assistant mechanic in [facility] next week. Regarding his constipation, he is currently on Linzess 72 mcg daily. He reports that he is having daily watery stools. Occasionally he feels like he is getting backed up. He did undergo a gastric emptying study previously which was normal. He has previously tried Trulance without improvement. He continues to report right-sided abdominal pain which he believes is related t o a retained surgical instrument. He states that a prior authorization technician told him that the re is a port retained after his cholecystectomy. He reports undergoing surgery to retrieve the retained instrument, however, they did not look in the right spo t and did not find anything. Review of Systems Constitutional: Negative. HENT: Negative. Eyes: Negative. Respiratory: Negative. Cardiovascular: Negative. Gastrointestinal: Negative. Endocrine: Negative. Genitourinary: Negative. Musculoskeletal: Negative. Skin: Negative. Allergic/Immunologic: Negative. Neurological: Negative. Hematological: Negative. Psychiatric/Behavioral: Negative. All other systems reviewed and are negative. Objective: amLODIPine (NORVASC) 5 mg tablet Take 5 mg by mouth daily. clopiDOGrel (PLAVIX) 75 mg tablet Take 75 mg by mouth daily. FARXIGA 10 mg tablet Take 10 mg by mouth daily. furosemide (LASIX) 20 mg tablet TAKE 1 TABLET BY MOUTH EVERY DAY NEEDED gabapentin (NEURONTIN) 100 mg capsule Take 100 mg by mouth three times daily . glyBURIDE (DIABETA) 5 mg tablet linaCLOtide (LINZESS) 72 mcg capsule Take 72 mcg by mouth daily. lisinopriL-hydrochlorothiazide (ZESTORETIC) 20-25 mg tablet 1 tablet daily. metFORMIN (GLUCOPHAGE) 1,000 mg tablet TK 1 T PO BID WC metoprolol tartrate (LOPRESSOR) 50 mg tablet Take 50 mg by mouth. pantoprazole DR (PROTONIX) 40 mg tablet TK 1 T PO D rosuvastatin (CRESTOR) 20 mg tablet Take 20 mg by mouth daily. vitamins, multiple tablet Take 1 tablet by mouth daily. There were no vitals filed for this visit. There is no height or weight on file to calculate BMI. Telehealth Patient Reported Vitals Row Name 07/15/21 0835 Weight: 120.2 kg (265 lb) per pt Height: 182.9 cm (72") Pain Score: EIGHT No acute distress This was a telephone visit. Limited exam. Assessment and Plan: Musa Grubbs He is a 65-year-old male with a history of cholecystectomy in 2 003, coronary artery disease, diabetes, hypertension, hyperlipidemia, and right- sided abdominal pain and constipation who presents to GI telemedicine clinic via telephone call for follow-up. 1. Chest pain: He continues to experience chest pain that radiates to his arms and occurs with activity. His prior nuclear medicine stress test was in 2017 an d showed mildly depressed ejection fraction and LV enlargement, however, the pat ient recalls being told his IV infiltrated. Per the report they recommended cat heterization if his symptoms persisted, however he does not recall undergoing fu rther evaluation at that time. I recommended that he be seen and evaluated by c ardihaley prior to undergoing any endoscopic evaluation and place a referral in January 2021. - He is scheduled to see cardiology next week in [place], [place]. I have advised him to forward us those records once they have been completed. 2. Right sided abdominal pain: He reports that there was a retained surgical i nstrument at the time of his cholecystectomy which was apparently seen on an ult rasound. His most recent abdominal ultrasound in 2014 viewed and [facility] records does not mention a retained instrument. He reports undergoing surgery to retrieve an instrument, but being told they do not find anything and believes that they looked in the wrong spot. - order CT abdomen/pelvis with contrast to evaluate for retained surgical instru ment/port - order CMP, obtained today 3. Chronic constipation: Has tried trulance in the past without improvement. He is currently on Linzess 72 mcg daily and is having 1 bowel movement daily. S tools are reported as watery in nature, however, he reports that he is continuin g to get backed up occasionally. - Increase Linzess to 145 mcg daily. He has some at home and will try this incr eased dose and if works let us know 4. Chest pain, RUQ pain and chronic constipation: - at some point he will need EGD and colonoscopy for further evaluation of abdom inal pain, chest pain, and change in bowel habits, however, given his chest pain is occurring with activity and his history of CAD, this will be done once cardi ac evaluation has been completed. Return to clinic in 6 months Total time 25 minutes documented in this encounter Miscellaneous Notes * Patient Instructions - Chey Cortes RN - 07/15/2021 9:00 AM CDT -Please have cardiology send us office visit notes once you see them. They can b e faxed to [phone] attn: Mirta. - order CT abdomen/pelvis with contrast to evaluate for retained surgical instru ment/port - order CMP, obtained today - Increase Linzess to 145 mcg daily. Try this increased dose for at least one w ouzinkie and if it works let us know. - at some point you will need EGD and colonoscopy. This should be done once cardiac evaluation is completed Follow up with Dr. Iraheta in 6 months. You will be contacted to schedule this zaheer ointment by a patient marketing services coordinator. If you are not contacted in the ne xt 2 weeks please call our office for assistance. As part of the CARES act, starting December 18 some results are released to you au tomatically. Your provider will continue to send you a detailed result note on a ny labs that they order, but with these changes you may see your results before they do. Critical lab results will be addressed immediately, but otherwise pleas e give your provider 72 hours (3 business days) to view and respond to your resu lts before reaching out with any questions. Depending on your questions, they ma y ask you to schedule a telehealth or telephone visit to discuss further. This v isit may be billed to your insurance depending on time and complexity. If you have internet access/ smartphone please contact me through [employer]. This is our preferred method of contact and the most efficient way to contact your [facility] team. If you do not have internet access/smartphone you can call at . Please do not leave multiple voicemail's for us. Leaving multiple voi cemail's delays us getting back to you quicker. documented in this encounter Plan of Treatment Order Schedule Name Type Priority Associated Diag noses Expected: 07/15/2021 (Approximate), Expi res: 07/15/2022 CT ABD/PELV W CONTRAST Imaging Routine Chronic constipation Abdominal pain, RUQ Expected: 07/15/2021, Expires: 2 COMPREHENSIVE METABOLIC Lab Routine Chroni c constipation PANEL Abdominal pain, RUQ documented as of this encounter Visit Diagnoses Diagnosis Chronic constipation - Primary Unspecified constipation Abdominal pain, RUQ Abdominal pain, right upper quadrant Chest pain, unspecified type documented in this encounter Discontinued Medications Start Date End Date Medication Sig Discontinue Reason 03/27/2018 07/15/2021 atorvastatin (LIPITOR) 10 TK 1 T PO D Discontinued mg tablet by another clinician documented as of this encounter Historical Medications * This list may reflect changes made after this encounter. Start Date End Date Medication Sig Dispensed Refills 05/04/2021 furosemide (LASIX) 20 mg TAKE 1 TABLET 0 tablet BY MOUTH EVERY DAY NEEDED 05/09/2021 gabapentin (NEURONTIN) Take 100 mg 0 100 mg capsule by mouth three times daily. 05/13/2021 FARXIGA 10 mg tablet Take 10 mg by 0 mouth daily. added in this encounter Additional Health Concerns Noted Time Assessment 07/15/2021 1:50 PM CDT A fall risk assessment has been complet ed for the patient documented as of this encounter Care Teams Start Date End Date Life Cycle Assessment Analyst Relationship Specialty 03/08/18 Willi Pierson MD PCP - General Family Medicine documented as of this encounter
--- OUTSIDE RECORDS SUMMARY | 2021-08-11 07:11 | XMS REPORT | Encounter Summary ---
Author Author [facility] Organization [facility] Address Unknown Phone Unavailable Care Team Providers Care Senior Sous Chef Name Role Phone Willi Pierson MD PCP Encounter Details Care Team Description Date Type Department 07/15/2021 Travel Social History Date Tobacco Use Types Packs/Day [...] impairment: No documented as of this encounter Plan of Treatment Not on filedocumented as of this encounter Visit Diagnoses Not on filedocumented in this encounter Additional Health Concerns Noted Time Assessment 07/15/2021 1:50 PM CDT A fall risk assessment has been complet ed for the patient documented as of this encounter Care Teams Start Date End Date Senior Sous Chef Relationship Specialty 03/08/18 Willi Pierson MD PCP - General Family Medicine documented as of this encounter
--- OUTSIDE RECORDS SUMMARY | 2021-08-11 07:11 | XMS REPORT | Clinical Summary ---
Author Author [facility] Organization [facility] Address Unknown Phone Unavailable Care Team Providers Care After School Coordinator Name Role Phone Self, Willi PATTERSON PCP Source Comments Some departments are not documenting in the electronic medical record. If you d o not see the information that you expected, contact Release of Information in [facility] [email or web address] Information Management department at [phone] for further assistan ce in locating additional records.[facility] Allergies No known active allergies Medications End Date Status Medication Sig Dispensed Refills Start Date Active glyBURIDE (DIABETA) 5 mg 1 tablet [...] mcg 0 mcg capsule by mouth daily. Active FARXIGA 10 mg tablet Take 10 mg by 0 mouth daily. 1 Active gabapentin (NEURONTIN) Take 100 mg 0 02 100 mg capsule by mouth 1 three times daily. Active furosemide (LASIX) 20 mg TAKE 1 TABLET 0 05/04 tablet BY MOUTH 1 EVERY DAY NEEDED 07/15/2021 Discontinued (Discontinued b y another clinician) atorvastatin (LIPITOR) 10 TK 1 T PO D 1 9/201 mg tablet 8 Active Problems Problem Noted Date Congenital spondylolisthesis of lumbosacral region 1 Neurogenic claudication 07/15/2021 Lumbar radiculopathy 07/15/2021 Encounters Care Team Description Date Type Specialty Vazquez Mccauley MD Scheduling 07/22/2021 Telephone Neurosurgery Vazquez Mccauley MD 07/15/2021 Hospital Radiology Encounter Vazquez Mccauley MD Congenital spondylolisthesis of lumbosac ral region (Primary Dx); Neurogenic claudication (HCC); Lumbar radiculopathy 07/15/2021 Office Visit Neurosurgery Davy Iraheta MD Chronic constipation (Primary Dx); Abdominal pain, RUQ; Chest pain, unspecified type 07/15/2021 Scheduled Gastroenterology Telephone 07/15/2021 Travel Davy Iraheta MD Patient Instructions 07/15/2021 Telephone Gastroenterology Vazquez Mccauley MD Chronic low back pain, unspecified back pain laterality, unspecified whether sciatica present (Primary Dx) 07/15/2021 Orders Only Neurosurgery Davy Iraheta MD Medication Question 05/29/2021 Telephone [...] or suspected to have Coronavirus / COVID-19? Last Filed Vital Signs Reading Time Taken Comments Vital Sign 130/85 07/15/2021 1:45 PM CDT Blood Pressure 74 07/15/2021 1:45 PM CDT Pulse 36.9 C (98.4 F) 07/15/2021 1:45 PM CDT Temperature 16 04/17/2018 1:11 PM CDT Respiratory Rate 97% 07/15/2021 1:45 PM CDT Oxygen Saturation - - Inhaled Oxygen Concentration 124.3 kg (274 lb) 07/15/2021 1:45 PM CDT Weight 182.9 cm (6') 07/15/2021 1:45 PM CDT Height 37.16 07/15/2021 1:45 PM CDT Body Mass Index Plan of Treatment Health Maintenance Due Date Last Done Comments HIV SCREENING 1971 DTAP/TDAP VACCINES (1 - 1974 Tdap) HEPATITIS C SCREENING 1974 PHYSICAL (COMPREHENSIVE) 1974 EXAM COLORECTAL CANCER 2006 SCREENING SHINGLES RECOMBINANT 2006 VACCINE (1 of 2) INFLUENZA VACCINE 04/19/2021 Procedures Comments Procedure Name Priority Date/Time Associated Diag nosis L SPINE COMPLETE Routine 07/15/2021 Chronic low b ack pain, 1:38 PM CDT unspecified back pain laterality, unspecified whether sciatica present from Last 3 Months Results * L SPINE COMPLETE (07/15/2021 1:38 PM CDT) Modality Anatomical Region Laterality Digital Radiography Spine, L-Spine Specimen Impressions [facility] RESULTS - 07/15/2021 2:44 PM CDT Findings/Impression: 17 degree left convexity lumbar scoliosi s. Grade 2 anterolisthesis at L5-S1 with chronic L5 spondylolysis. Listhesis is mildly accentuated in flexion and not significantly changed in extension. Subtle retrolisthesis at L4-L5 and L2-L3, unchanged in flexion and extension. Lumbar vertebral body heights are maintained. Multilevel disc degeneration, of moderate degree from L2-3 through L5-S1. Lower lumbar facet arthrosis. Finalized by Carlos Harman M.D. on 07/15/2021 2:44 PM. Dictated by Carlos Harman M.D. on 07/15/2021 2:42 PM. Narrative [facility] RESULTS - 07/15/2021 2:44 PM CDT L SPINE COMPLETE Indication: Chronic low back pain Comparison: MRI lumbar spine 04/15/2021 Procedure Note Carlos Harman MD - 07/15/2021 L SPINE COMPLETE Indication: Chronic low back pain Comparison: MRI lumbar spine 04/15/2021 IMPRESSION Findings/Impression: 17 degree left convexity lumbar scoliosi s. Grade 2 anterolisthesis at L5-S1 with chronic L5 spondylolysis. Listhesis is mildly accentuated in flexion and not significantly changed in extension. Subtle retrolisthesis at L4-L5 and L2-L3, unchanged in flexion and extension. Lumbar vertebral body heights are maintained. Multilevel disc degeneration, of moderate degree from L2-3 through L5-S1. Lower lumbar facet arthrosis. Finalized by Carlos Harman M.D. on 07/15/2021 2:44 PM. Dictated by Carlos Harman M.D. on 07/15/2021 2:42 PM. Performing Organization Address City/State/ZIP Code P cherelle Number [facility] RESULTS from Last 3 Months Insurance Type Payer Benefit Subscriber ID Effective Phone Address Plan / Dates Group Medicaid UHC MEDICAID [place] UHC [id number] 2017-P [address] [facility] [address] [place] [address] [phone] Advance Directives Patient Head Tennis Coach Explanation Type Date Recorded Advance Directive/DPOA Care Teams Start Date End Date After School Coordinator Relationship Specialty 03/08/18 Willi Pierson MD PCP - General Family Medicine
--- OUTSIDE RECORDS SUMMARY | 2021-08-11 07:11 | XMS REPORT | Encounter Summary ---
Author Author [facility] Organization [facility] Address Unknown Phone Unavailable Care Team Providers Care Conditioning Coach Name Role Phone Self, Willi PATTERSON PCP Reason for Referral * Radiology Services (Routine) - New Request Diagnoses / Procedures Referred By Contact Referred To Conta ct Specialty Diagnoses Chronic low back pain, unspecified back pain laterality, unspecified whether sciatica present Procedures L SPINE COMPLETE Vazquez Mccauley MD [address] [place] [address] Radiology Referral ID Status Reason Start Date Expiration Visits Vi sits Date Requested Authorized [id number] New Request 07/15/2021 07/15/2022 1 1 Encounter Details Care Team Description Date Type Department Vazquez Mccauley MD [address] [place] [address] Chronic low back pain, unspecified back pain laterality, unspecified whether sciatica present (Primary Dx) 07/15/2021 Orders Only [facility] [address] [place] [address] Social History Date Tobacco Use Types Packs/Day [...] Not on filedocumented as of this encounter Results * L SPINE COMPLETE (07/15/2021 1:38 [...] Code P cherelle Number [facility] RESULTS documented in this encounter Visit Diagnoses Diagnosis Chronic low back pain, unspecified back pain laterality, unspecified whether sciatica present - Primary Chronic low back pain, unspecified back pain laterality, unspecified whether sciatica present documented in this encounter Additional Health Concerns Noted Time Assessment 07/15/2021 1:50 PM CDT A fall risk assessment has been complet ed for the patient documented as of this encounter Care Teams Start Date End Date Conditioning Coach Relationship Specialty 03/08/18 Willi Pierson MD PCP - General Family Medicine documented as of this encounter
--- OUTSIDE RECORDS SUMMARY | 2021-08-11 07:11 | XMS REPORT | Encounter Summary ---
Author Author [facility] Organization [facility] Address Unknown Phone Unavailable Care Team Providers Care Spot Man Name Role Phone Self, Willi PATTERSON PCP Reason for Visit * Reason Comments New Patient * Consult, Test & Treat (Routine) - Authorized Diagnoses / Procedures Referred By Contact Referred To Conta ct Specialty Diagnoses Spondylolisthesis, lumbar region Steve Alberts MD [address] [place] [address] [facility] [address] [facility] [address] Neurosurgery Referral ID Status Reason Start Date Expiration Visits Vi sits Date Requested Authorized [id number] Authorized 06/17/2021 06/17/2022 1 1 Encounter Details Care Team Description Date Type Department Vazquez Mccauley MD [address] [place] [address] Congenital spondylolisthesis of lumbosac ral region (Primary Dx); Neurogenic claudication (HCC); Lumbar radiculopathy 07/15/2021 Office Visit Comprehensive [facility]: Main [place], [facility] [address] [facility], [address] [place] [address] Social History Date Tobacco Use [...] / COVID-19? documented as of this encounter Last Filed Vital Signs Reading Time Taken Comments Vital Sign 130/85 07/15/2021 1:45 PM CDT Blood Pressure 74 07/15/2021 1:45 PM CDT Pulse 36.9 C (98.4 F) 07/15/2021 1:45 PM CDT Temperature - - Respiratory Rate 97% 07/15/2021 1:45 PM CDT Oxygen Saturation - - Inhaled Oxygen Concentration 124.3 kg (274 lb) 07/15/2021 1:45 PM CDT Weight 182.9 cm (6') 07/15/2021 1:45 PM CDT Height 37.16 07/15/2021 1:45 PM CDT Body Mass Index documented in this encounter Functional Status Date of Assessment [...] as of this encounter Progress Notes * Vazquez Mccauley MD - 07/15/2021 2:00 PM CDT Subjective: History of Present Illness Musa Grubbs is a 65 y.o. male. He presents chief complaint of bilateral low back pain for many years. This pain also radiates down his left lower extremity and is associated with painful paresthesias and numbness. His symptoms are wor se with standing/walking and improved with recumbency. 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 Of note he is on Plavi x for some sort of vascular disease. Objective: amLODIPine (NORVASC) 5 mg tablet Take [...] tablet Take 1 tablet by mouth daily. Vitals: 07/15/21 1345 BP: 130/85 BP Source: Arm, Left Upper Patient Position: Sitting Pulse: 74 Temp: 36.9 C (98.4 F) TempSrc: Oral SpO2: 97% Weight: 124.3 kg (274 lb) Height: 182.9 cm (72") PainSc: Seven Body mass index is 37.16 kg/m. Physical Exam Vitals and nursing note reviewed. Constitutional: Appearance: Normal appearance. HENT: Head: Normocephalic and atraumatic. Pulmonary: Effort: Pulmonary effort is normal. Musculoskeletal: Cervical back: Normal. Thoracic back: Normal. Lumbar back: Tenderness present. Neurological: General: No focal deficit present. Mental Status: He is alert and oriented to person, place, and time. Sensory: Sensory deficit (Decreased light touch in LLE) present. Motor: Motor function is intact. Gait: Gait abnormal (Antalgic gait). Deep Tendon Reflexes: Reflexes are normal and symmetric. Psychiatric: Mood and Affect: Mood normal. Behavior: Behavior normal. Thought Content: Thought content normal. Judgment: Judgment normal. I independently reviewed standing lumbar films from clinic today as well as rece nt MRI of the lumbar spine. Standing films performed in clinic today demonstrat e multilevel degenerative changes with grade 1 2 spondylolisthesis of L5 on S1. MRI of the lumbar spine demonstrates L5-S1 spondylolisthesis with significant b ilateral neuroforaminal stenosis left greater than right. There is also clearly congenital malformation of the posterior elements at this level. Assessment and Plan: Patient is asymptomatic spondylolisthesis related to congenital abnormality gianna t is failed nonoperative management. I am recommending an L5-S1 ALIF with percu taneous pedicle screw and melody fixation. Surgical procedure, risk, benefits, and alternatives were discussed with patient in detail. documented in this encounter Miscellaneous Notes * Patient Instructions - Salena Anaya RN - 07/15/2021 2:00 PM CDT It was nice to see you today. Thank you for choosing to visit our clinic. Your time is important, and if you had to wait today, we do apologize. Our goal is to run exactly on time. However, on occasion, we get behind in clinic due to un expected patient issues. Thank you for your patience. General Instructions: Scheduling: Our scheduling phone number is [phone]. Appointment Reminders on your cell phone: Make sure we have your cell phone number in your account, and text [facility] to [phone]. How to reach our office: Please send a [employer] message to the Spine Center o r leave a voicemail for the nurse, Salena, at [phone]. How to get a medication refill: Please use the [employer] Refill request or con tact your pharmacy directly to request medication refills. Please allow 72 busi ness hours for request to be completed. Support for many chronic illnesses is available through [facility] [employer] at [email or web address] or [phone]. For help with [employer]: please call [phone]. For questions on nights, weekends or holidays: call the [employer] Admin at , and ask for the doctor psychologist military personnel for Neurosurgery. For more information on spinal conditions: please visit [email or web address] Again, thank you for coming in today. Please read over the following surgery information and let us know if you have a ny questions. Please note appointment dates/times/location. Every patient currently scheduled for surgery at the [facility] needs to have a COVID swab (PCR) completed 48-72 hours prior to surgery. The results must ar rive to our facility prior to your scheduled surgery, or your surgery could be c ancelled. We will help you arrange this test. Tentative Surgery date: Surgery: L5/S1 ALIF with posterior percutaneous instrumentation Surgery will be at [facility] with Dr. Vazquez Mccauley [address] [address] You will need to check in with admitting the day of your surgery. Admitting desk in on the 1st floor main entrance of the [facility]. You will receive a call from the surgical team the day prior to your surgery aft er 2 pm, to inform you of what time you will need to arrive in admitting the day of your surgery. If you have not been contacted by 4:30 pm the day prior your surgery date, rere e call [phone] or [phone]. Parking is in the parking garage off of [facility], [facility]. Parking fee is $3 with validation, bring your ticket to be validated upon check in. legalPAD parking is also available. *Do not eat or drink (including gum, mints, candy, or chewing tobacco) anything after midnight-12 am the night before your surgery. *The morning of your surgery brush your teeth and tongue, ok to rinse, but do no t drink any water. *You may take your medications with a sip of water if instructed by your physici an to do so. If you have an appointment with PAC (Pre-operative Anesthesia Clinic); at the ap pointment, they will instruct you on what medications to take on the day of surg fatoumata. *Notify [facility]: If you need to cancel your procedure or if you are going to be late POST OP Instruction Anticipated hospital stay: 1-3 days including the day of surgery. Walking is great and will be your initial therapy. During your hospital stay you may be evaluated by Physical and Developmental Education Instructor apy. Your first postoperative follow up appointment will be 2 weeks following dischar ge. This appointment will be with the Neurosurgery Dept and will be scheduled a s a Tele Health visit. If your sutures are not absorbable, they will be removed at this visit and you w ill need an in clinic appointment. Dr. Christianne Mo [address] [facility]. (Park in [address]) [facility] Neurosurgery Clinic 3rd floor Pod 2B [phone] 6 week post op appointment in clinic will be scheduled with Dr. Mccauley. A prescription for pain medication will be sent to the pharmacy electronically u pierre discharge. You may discuss further refills at your 2 week post op appointmen t. The medications prescribed for postoperative pain management can be very constip ating, so please be sure to have stool softeners and/or laxatives available when you return home. No driving until your first follow up visit and as long as you are taking opioid pain medication. After surgery you will have restrictions including no more than 5-10 lbs lifting , as well as no bending, twisting, stooping, squatting, crawling, pushing, pulli ng for 6-8 weeks. If FMLA or Short Term Disability will be used, please provide this paperwork (fa x [phone]) to be completed in a timely manner. If you have any questions or concerns regarding you insurance coverage and /or o ut of pocket expenses regarding this procedure/surgery, please feel to contact t racheal [phone]. Financial Assistance/Counseling [phone] documented in this encounter Plan of Treatment Not on filedocumented as of this encounter Visit Diagnoses Diagnosis Congenital spondylolisthesis of lumbosa cral region - Primary Congenital spondylolisthesis Neurogenic claudication (HCC) Spinal stenosis, lumbar region, with ne urogenic claudication Lumbar radiculopathy Thoracic or lumbosacral neuritis or rad iculitis, unspecified documented in this encounter Additional Health Concerns Noted Time Assessment 07/15/2021 1:50 PM CDT A fall risk assessment has been complet ed for the patient documented as of this encounter Care Teams Start Date End Date Spot Man Relationship Specialty 03/08/18 Willi Pierson MD PCP - General Family Medicine documented as of this encounter
--- OUTSIDE RECORDS SUMMARY | 2021-08-11 07:11 | XMS REPORT | Encounter Summary ---
Author Author [facility] Organization [facility] Address Unknown Phone Unavailable Care Team Providers Care Regulatory Consultant Name Role Phone Self, Willi PATTERSON PCP Reason for Visit * Reason Onset Date Comments Scheduling 07/22/2021 Encounter Details Care Team Description Date Type Department Vazquez Mccauley MD [address] [place], [place] [id number] Scheduling 07/22/2021 Telephone Comprehensive Sp[facility]: [facility]: [address] [place] [address] Social History Date Tobacco Use Types Packs/Day [...] encounter Miscellaneous Notes * Telephone Encounter - Salena Anaya RN - 07/22/2021 2:27 PM CDT RN called patient to discuss possible ALIF surgery date for 09/25/2020, which wa s previously tentatively scheduled with Dr. Velázquez. Patient states his cardiolo gist is not clearing him for surgery d/t severe atherosclerosis and not being ab le to stent. Patient is receiving medication therapy from [facility] at this point, and hopes to get clearance down the road. Patient will contact our offic e should he get clearance and decide to schedule in the future. Patient demonst rates understanding and is agreeable to plan. documented in this encounter Plan of Treatment Not on filedocumented as of this encounter Visit Diagnoses Not on filedocumented in this encounter Additional Health Concerns Noted Time Assessment 07/15/2021 1:50 PM CDT A fall risk assessment has been complet ed for the patient documented as of this encounter Care Teams Start Date End Date Regulatory Consultant Relationship Specialty 03/08/18 Willi Pierson MD PCP - General Family Medicine documented as of this encounter
--- OUTSIDE RECORDS SUMMARY | 2021-08-11 07:12 | XMS REPORT | Encounter Summary ---
Author Author [facility] Organization [facility] Address Unknown Phone Unavailable Care Team Providers Care Email Developer Name Role Phone Self, Willi PATTERSON PCP Reason for Referral * Radiology Services (Routine) - New Request Diagnoses / Procedures Referred By Contact Referred To Conta ct Specialty Diagnoses Chronic low back pain, unspecified back pain laterality, unspecified whether sciatica present Procedures L SPINE COMPLETE Vazquez Mccauley MD [address] [place] [address] Radiology Referral ID Status Reason Start Date Expiration Visits Vi sits Date Requested Authorized [id number] New Request 07/15/2021 07/15/2022 1 1 Reason for Visit * Radiology Services (Routine) - New Request Diagnoses / Procedures Referred By Contact Referred To Conta ct Specialty Diagnoses Chronic low back pain, unspecified back pain laterality, unspecified whether sciatica present Procedures L SPINE COMPLETE Vazquez Mccauley MD [address] [place] [address] Radiology Referral ID Status Reason Start Date Expiration Visits Vi sits Date Requested Authorized [id number] New Request 07/15/2021 07/15/2022 1 1 Encounter Details Care Team Description Date Type Department Vazquez Mccauley MD [address] [place] [address] 07/15/2021 Hospital Imaging, Comprehens patricia Encounter Spine: Main [place], [facility] [address] [place] [address] [address], [address] [place] [address] Social History Date Tobacco Use [...] impairment: No documented as of this encounter Medications at Time of Discharge Start Date End Date Medication Sig Dispensed Refills 11/13/2020 amLODIPine (NORVASC) 5 mg Take 5 mg by 0 tablet mouth daily. clopiDOGrel (PLAVIX) 75 Take 75 mg by 0 mg tablet mouth daily. 05/13/2021 FARXIGA 10 mg tablet Take 10 mg by 0 mouth daily. 05/04/2021 furosemide (LASIX) 20 mg TAKE 1 TABLET 0 tablet BY MOUTH EVERY DAY NEEDED 05/09/2021 gabapentin (NEURONTIN) Take 100 mg 0 100 mg capsule by mouth three times daily. 04/09/2018 glyBURIDE (DIABETA) 5 mg 1 tablet linaCLOtide (LINZESS) 72 Take 72 mcg 0 mcg capsule by mouth daily. 03/23/2018 lisinopriL-hydrochlorothi 1 tablet 2 azide (ZESTORETIC) 20-25 daily. mg tablet 03/24/2018 metFORMIN (GLUCOPHAGE) TK 1 T PO BID 0 1,000 mg tablet WC metoprolol tartrate Take 50 mg by 0 (LOPRESSOR) 50 mg tablet mouth. 03/20/[address] BERNAL 1 T PO D 1 (PROTONIX) 40 mg tablet 01/13/2021 rosuvastatin (CRESTOR) 20 Take 20 mg by 0 mg tablet mouth daily. vitamins, multiple tablet Take 1 tablet 0 by mouth daily. documented as of this encounter Discharge Disposition Code Departure Means Destination Disposition Home Home or Self Care documented in this encounter Plan of Treatment Not on filedocumented as of this encounter Procedures Comments Procedure Name Priority Date/Time Associated Diag nosis L SPINE COMPLETE Routine 07/15/2021 Chronic low b ack pain, 1:38 PM CDT unspecified back pain laterality, unspecified whether sciatica present documented in this encounter Results * L SPINE COMPLETE [...] encounter Care Teams Start Date End Date Email Developer Relationship Specialty 03/08/18 Willi Pierson MD PCP - General Family Medicine documented as of this encounter
[2021-08-11 07:40] LABS: HEMATOCRIT 51 % (40-54); HEMOGLOBIN 16.9 g/dL (13.3-17.7); MEAN CORPUSCULAR HEMOGLOBIN 29 pg (25-34); MEAN CORPUSCULAR HGB CONC 33 g/dL (32-36); MEAN CORPUSCULAR VOLUME 88 fL (80-99); MEAN PLATELET VOLUME 9.6 fL (9.0-12.2); PLATELET COUNT 267 10^3/uL (130-400); WHITE BLOOD COUNT 11.8 10^3/uL (4.3-11.0)
[2021-08-11 07:55] LABS: INR 0.9 (0.8-1.4); PROTHROMBIN TIME PATIENT 12.3 SEC (12.2-14.7)
[2021-08-11 07:57] LABS: ALBUMIN 4.3 GM/DL (3.2-4.5); BILIRUBIN,TOTAL 0.6 MG/DL (0.1-1.0); CALCIUM 9.7 MG/DL (8.5-10.1); CREATININE SERUM 0.9 MG/DL (0.60-1.30); POTASSIUM 3.9 MMOL/L (3.6-5.0); TOTAL PROTEIN 7.4 GM/DL (6.4-8.2)
[~2021-08-11 09:00] MED LIST changes: +DAPA10TA PO; +DULO30CA49 PO; +GABA-486 PO; +HEParin (CATH LAB) 2,000 ML IV ONE; +ISOS60TA63 PO; +LIDOCAINE 1% INJ 20 ML 20 ML VIAL ONE; +LINA72CA PO; +LISI5TAB20 PO; +MIDAZOLAM 5 MG/5 ML (VERSED) VIAL ONE; +MTP100TCR PO; +NS IV 1000 ML 1,000 ML IV SCH; +NS IV 1000 ML 1,000 ML ONE; +ROSU20TA32 PO; +fentaNYL INJ 100 MCG/2 ML AMP ONE
[2021-08-11] MEDS ORDERED: HEParin 1000 UNIT/ML (10ML VIAL) FOR BOLUS ONE (09:27)
[2021-08-11] MEDS ORDERED: EPTIFIBATIDE BOLUS 20 ML IV ONE (09:28)
[2021-08-11] MEDS ORDERED: CLOPIDOGREL 300 MG (PLAVIX) TABLET PO ONE (10:01)
[2021-08-11] MEDS ORDERED: ASPIRIN 81 MG CHEW (CHILDREN'S ASA) ONE (10:02)
--- NOTE | 2021-08-11 10:16 | Cardiac Procedure Note-CS/ASA ---
Pre-Procedure Note Pre-Op Procedure Note H&P Reviewed The H&P was reviewed, patient examined and no changes noted. Date H&P Reviewed: Aug 11, 2021 Time H&P Reviewed: 09:00 Conscious Sedation Pre-Proced Time 09:00 ASA Score 4 For ASA 3 and 4: Consider anesthesia and medical clearance. Also, for patients with a history of failed moderate sedation consider anesthesia. Airway Lungs Heart ASA score ASA 1: a normal healthy patient ASA 2: a patient with a mild systemic disease (mid diabetes, controlled hypertension, obesity ASA 3: a patient with a severe systemic disease that limits activity (angina, COPD, prior Myocardial infarction) ASA 4: a patient with an incapacitating disease that is a constant threat to life (CHF, renal failure) ASA 5: a moribund patient not expected to survive 24 hrs. (ruptured aneurysm) ASA 6: a declared brain- patient whose organs are being harvested. For emergent operations, add the letter E after the classification Mallampati Classification Grade 2 Sedation Plan Analgesia, Amnesia, Plan communicated to team members, Discussed options with patient/fam, Discussed risks with patient/fam The patient is an appropriate candidate to undergo the planned procedure, sedation, and anesthesia. The patient immediately re-assessed prior to indication. VIVEK KATZ MD FACP FAC CCDS Aug 11, 2021 10:16
[2021-08-11] MEDS ORDERED: morphine INJ 10 MG/ML 1ML (SYR OR VIAL) ONE ×2 (10:28→11:20)
[2021-08-11] MEDS ORDERED: ACETAMINOPHEN 500 MG TAB (TYLENOL) PO PRN (10:30)
[2021-08-11] MEDS ORDERED: PATIENT MAY USE OWN MEDS, ALL PO SCH (10:30)
[2021-08-11] MEDS ORDERED: morphine INJ 10 MG/ML 1ML (SYR OR VIAL) IVP PRN (10:30)
[2021-08-11] MEDS: NS IV 1000 ML 1,000 ML IV SCH ×2 (11:05→20:46)
[2021-08-11] MEDS ORDERED: morphine INJ 4 MG/ML 1 ML (VIAL/SYRINGE) ONE (11:14)
[2021-08-11] MEDS ORDERED: PANTOPRAZOLE 40 MG (PROTONIX) VIAL IV ONE (11:30)
[2021-08-11] MEDS: oxyCODONE/APAP 7.5-325 MG (PERCOCET 7.5) TABLET PO PRN ×2 (12:36→20:30)
[2021-08-11] MEDS: GABAPENTIN 100 MG (NEURONTIN) CAP PO SCH ×2 (12:36→17:47)
--- NOTE | 2021-08-11 13:35 | CARDIAC CATHETERIZATION ---
DATE OF SERVICE: 08/11/2021 CARDIAC CATHETERIZATION AND CORONARY INTERVENTION REPORT HISTORY: The patient is a 65-year-old gentleman who is known to have coronary artery disease. The disease is known to be diffuse and has been treated with medical therapy. He has been experiencing increasing angina. Repeat cardiac catheterization was carried out today after having obtained an informed consent for cardiac catheterization and possible ad hoc coronary intervention. DESCRIPTION OF PROCEDURE: He was brought to the cardiac catheterization laboratory in a fasting state. Right groin was prepared and draped in the usual sterile fashion. Lidocaine 1% was used for local anesthesia. Modified Seldinger technique was used to advance a 5-Wallisian sheath in the right femoral artery. Angiography of the right femoral artery was carried out through the sheath. A 5-Wallisian JL4 catheter was used for left coronary angiography, 5-Wallisian JR4 catheter for right coronary angiography, 5-Wallisian pigtail catheter was used for left heart catheterization and left ventricular angiography. Following completion of the diagnostic procedure, percutaneous intervention was carried out to the mid left anterior descending artery as is described below. PERCUTANEOUS INTERVENTION OF THE LEFT ANTERIOR DESCENDING ARTERY: We exchanged the sheath over a wire for a 6-Wallisian sheath. We gave 4000 units of intravenous heparin. A double bolus of Integrilin was given during the procedure. We used a 6-Wallisian JL4.5 guide catheter to engage the left coronary artery. We advanced a ChoICE extra support wire across the lesion and the tip was placed in the distal vessel. Balloon angioplasty was carried out to the mid left anterior descending artery where he had a 90% stenosis. We used a 2.0 x 20 mm balloon. The balloon was removed, and we advanced SkyPoint 2.5 x 28 mm stent to the lesion. This was carefully positioned to cover the lesion and the stent was deployed at 20 atmospheres. Subsequently, we carried out balloon angioplasty of the proximal two third of the standard segment with [place] 3.0 x 15 mm balloon. This was done because the proximal part of the standard segment is of a slightly larger caliber than the distal part. Angiography then showed no significant residual stenosis at the previous site of up to 90% stenosis. Flow throughout the vessel is normal. The stent extends across the second diagonal branch, which is of a small caliber and is diffusely and severely diseased and is not amenable to intervention. The vessel stayed unchanged following stent deployment. At the end of the procedure, Mynx was used to achieve hemostasis following removal of the angioplasty equipment and the sheath. He tolerated the procedure well. HEMODYNAMICS: Left ventricular end-diastolic pressure following coronary angiography was 16 mmHg. There is no significant pressure gradient on pullback across the aortic valve. LEFT VENTRICULAR ANGIOGRAPHY: Left ventricular angiography was carried out in the AP projection. No distinct regional wall motion abnormality was seen in this view. Ejection fraction approximately 45% to 50%. CORONARY ANGIOGRAPHY: Diffuse coronary calcification is present, especially involving the proximal and mid left anterior descending. The left main coronary artery does not exhibit significant disease. Left anterior descending artery had approximately 30% ostial stenosis and had a 90% mid vessel stenosis, which was successfully stented. The first and second diagonal branches are of a very small caliber and have severe diffuse disease and are not amenable to intervention. The left circumflex artery is nondominant. It has moderately severe to severe diffuse disease. In the very distal portion, it has up to 90% stenosis. The vessel does not appear to be amenable to intervention, given its small size and diffuse disease. The right coronary artery is dominant. The posterior descending branch appears to be occluded at the ostium. The distal right coronary artery has approximately 70% to 80% stenosis. CONCLUSIONS: 1. Multivessel coronary artery disease as described above. A 90% mid left anterior descending artery was successfully stented with StarPoint 2.5 x 28 mm stent. The first and second diagonal branches of the left anterior descending artery have diffuse severe disease and are not amenable to intervention. The left circumflex artery is nondominant and has moderate to moderately severe diffuse disease and is not amenable to intervention. The right coronary artery is dominant. The posterior descending branch appears occluded at its ostium. The distal right coronary artery has approximately 70% to 80% stenosis. 2. Left ventricular end-diastolic pressure is 16 mmHg. 3. The ejection fraction appears to be at the lower limit of normal with ejection fraction of 45% to 50%. DISCUSSION AND RECOMMENDATIONS: He is being hospitalized for overnight observation. Dual antiplatelet therapy is being continued. Risk factor modification has been discussed and advised. May need consideration of PCI to distal RCA at a later date, especially if symptoms remain. Job ID: [id number] DocumentID: [id number] Dictated Date: 08/11/2021 10:14:25 Geophysical Prospecting Surveyor Date: 08/11/2021 13:34:18 Dictated By: VIVEK KATZ MD, MA, FACP, FACC, MTDD
[2021-08-11] MEDS: inSUlin ASPART (NovoLOG) 1 UNIT/0.01 ML (CHARGE PER UNIT) SC SCH ×2 (17:34→20:45)
[2021-08-11] MEDS: glyBURIDE 5 MG (MICRONASE) TAB PO SCH (17:47)
[2021-08-11] MEDS ORDERED: amLODIPine 5 MG (NORVASC) TAB PO SCH (21:00)
[2021-08-11] MEDS ORDERED: DULoxetine 30 MG (CYMBALTA) CAP PO SCH (21:00)
[2021-08-12] VITALS (9 sets, daily range): BP systolic 105–144; BP diastolic 58–80
[2021-08-12] MEDS: NS IV 1000 ML 1,000 ML IV SCH (02:46)
[2021-08-12] MEDS: GABAPENTIN 100 MG (NEURONTIN) CAP PO SCH (03:30)
[2021-08-12 06:24] LABS: BASOPHILS % (AUTO) 1 % (0-10); EOSINOPHILS # (AUTO) 0.2 10^3/uL (0.0-0.3); EOSINOPHILS % (AUTO) 2 % (0-10); HEMATOCRIT 47 % (40-54); HEMOGLOBIN 15.3 g/dL (13.3-17.7); LYMPHOCYTES # (AUTO) 1.1 10^3/uL (1.0-4.0); LYMPHOCYTES % (AUTO) 12 % (12-44); MEAN CORPUSCULAR HEMOGLOBIN 28 pg (25-34); MEAN CORPUSCULAR HGB CONC 33 g/dL (32-36); MEAN CORPUSCULAR VOLUME 86 fL (80-99); MEAN PLATELET VOLUME 9.8 fL (9.0-12.2); MONOCYTES # (AUTO) 0.6 10^3/uL (0.0-1.0); MONOCYTES % (AUTO) 7 % (0-12); NEUTROPHILS # (AUTO) 6.7 10^3/uL (1.8-7.8); NEUTROPHILS % (AUTO) 78 % (42-75); PLATELET COUNT 195 10^3/uL (130-400); WHITE BLOOD COUNT 8.6 10^3/uL (4.3-11.0)
[2021-08-12 06:40] LABS: POTASSIUM 3.8 MMOL/L (3.6-5.0)
[2021-08-12 06:41] LABS: CALCIUM 8.9 MG/DL (8.5-10.1)
[2021-08-12 06:45] LABS: PHOSPHORUS 3.2 MG/DL (2.3-4.7)
[2021-08-12 06:46] LABS: CREATININE SERUM 0.78 MG/DL (0.60-1.30)
[2021-08-12 06:48] LABS: MAGNESIUM 1.7 MG/DL (1.6-2.4)
[2021-08-12] MEDS: inSUlin ASPART (NovoLOG) 1 UNIT/0.01 ML (CHARGE PER UNIT) SC SCH (06:51)
--- NOTE | 2021-08-12 07:33 | Progress Note - Cardiology ---
Cardiology SOAP Progress Note Objective: I&O/Vital Signs 08/11/21 08/11/21 08/11/21 08/11/21 19:48 20:00 21:00 22:00 Temp 36.6 Pulse 70 75 82 80 Resp 16 12 8 10 B/P (MAP) 122/72 (89) 128/88 (101) 142/91 (111) 139/85 (103) Pulse Ox 94 95 97 94 O2 Delivery Room Air Room Air Room Air Room Air 08/12/21 08/12/21 08/12/21 08/12/21 00:00 01:00 01:00 02:00 Pulse 70 92 92 81 Resp 14 17 37 B/P (MAP) 123/75 (93) 144/75 (102) 105/58 (66) Pulse Ox 91 85 89 O2 Delivery Room Air Room Air Room Air 08/12/21 08/12/21 08/12/21 03:00 05:00 06:00 Pulse 67 74 73 Resp 10 13 13 B/P (MAP) 122/72 (90) 133/79 (98) 133/80 (101) Pulse Ox 97 93 92 O2 Delivery Room Air Room Air Room Air Weight (Pounds): 280 Weight (Ounces): 0.0 Weight (Calculated Kilograms): 127.617558 Results/Procedures: Labs Laboratory Tests 08/11/21 12:06: Glucometer 195H 08/11/21 15:45: Glucometer 189H 08/11/21 20:18: Glucometer 182H 08/12/21 06:10: White Blood Count 8.6, Red Blood Count 5.40, Hemoglobin 15.3, Hematocrit 47, Mean Corpuscular Volume 86, Mean Corpuscular Hemoglobin 28, Mean Corpuscular Hemoglobin Concent 33, Red Cell Distribution Width 13.2, Platelet Count 195, Mean Platelet Volume 9.8, Immature Granulocyte % (Auto) 0, Neutrophils (%) (Auto) 78H, Lymphocytes (%) (Auto) 12, Monocytes (%) (Auto) 7, Eosinophils (%) (Auto) 2, Basophils (%) (Auto) 1, Neutrophils # (Auto) 6.7, Lymphocytes # (Auto) 1.1, Monocytes # (Auto) 0.6, Eosinophils # (Auto) 0.2, Basophils # (Auto) 0.0, Immature Granulocyte # (Auto) 0.0, Sodium Level 134L, Potassium Level 3.8, Chloride Level 102, Carbon Dioxide Level 22, Anion Gap 10, Blood Urea Nitrogen 12, Creatinine 0.78, Estimat Glomerular Filtration Rate 100, BUN/Creatinine Ratio 15, Glucose Level 143H, Calcium Level 8.9, Phosphorus Level 3.2, Magnesium Level 1.7 Laboratory Tests 08/11/21 07:31 08/12/21 06:10 A/P: Assessment: CAD - Card cath of 08-11-21: Multivessel coronary artery disease as described above. A 90% mid left anterior descending artery was successfully stented with StarPoint 2.5 x 28 mm stent. The first and second diagonal branches of the left anterior descending artery have diffuse severe disease and are not amenable to intervention. The left circumflex artery is nondominant and has moderate to moderately severe diffuse disease and is not amenable to intervention. The right coronary artery is dominant. The posterior descending branch appears occluded at its ostium. The distal right coronary artery has approximately 70% to 80% stenosis. Left ventricular end-diastolic pressure is 16 mmHg. The ejection fraction appears to be at the lower limit of normal with ejection fraction of 45% to 50%. SOB - Echocardiogram of 07-28-21 showed mild concentric hypertophy. LVEF 30-35%. LA midly dilated. Mitral valve annulus is mildly to mod calcified. PASP 30-35 mmHg. Angina pectoris, progressive Abnormal ECG NSR with LBBB on ECG iof 07/20/21 Hypertension - controlled DM II - manged by PCP Hyperlipidemia - managed by PCP Obesity - with BMI approx 35 HALIMA DEVI Aug 12, 2021 07:33
--- NOTE | 2021-08-12 07:35 | Discharge Inst-Cardiology ---
Discharge Inst-Cardiac Discharge Medications Continued Medications: Acetaminophen (Acetaminophen) 500 Mg Tablet 2000 MG PO Q8H PRN for PAIN-MILD, TAB Amlodipine Besylate (Norvasc) 5 Mg Tablet 5 MG PO HS, TAB Aspirin (Aspirin) 81 Mg Tab.chew 81 MG PO DAILY, #90 TAB 3 Refills Clopidogrel Bisulfate (Plavix) 75 Mg Tablet 75 MG PO DAILY, #90 TAB 3 Refills Dapagliflozin Propanediol (Farxiga) 10 Mg Tablet 10 MG PO DAILY, TAB Duloxetine HCl (Duloxetine HCl) 30 Mg Capsule.dr 30 MG PO HS, CAP Gabapentin (Gabapentin) 100 Mg Capsule 100 MG PO Q8H for Neuropathic pain, CAP Glyburide (Glyburide) 5 Mg Tablet 5 MG PO BID WITH MEALS, TAB Ibuprofen (Ibuprofen) 200 Mg Tablet 4 MG PO PRN PRN for PAIN-MILD (1-4), TAB Isosorbide Mononitrate (Isosorbide Mononitrate ER) 60 Mg Tab 60 MG PO DAILY, TAB Linaclotide (Linzess) 72 Mcg Capsule 72 MCG PO DAILY, CAP Lisinopril (Lisinopril) 5 Mg Tablet 5 MG PO DAILY, TAB Metformin HCl (Metformin HCl) 1,000 Mg Tablet 1000 MG PO BID, TAB Metoprolol Succinate (Metoprolol Succinate) 100 Mg Tab.er.24h 100 MG PO DAILY, TAB Pantoprazole Sodium (Protonix) 40 Mg Tablet.dr 40 MG PO DAILY, TAB Rosuvastatin Calcium (Rosuvastatin Calcium) 20 Mg Tablet 20 MG PO DAILY, TAB New, Converted or Re-Newed RX: Transmitted to Pharmacy Patient Instructions Patient Instructions: DO NOT RE-START METFORMIN UNTIL AUGUST [id number] Please schedule follow up appointment to see Dr. Juarez in 2 weeks HALIMA DEVI Aug 12, 2021 07:35
--- NOTE | 2021-08-12 07:56 | Progress Note - Cardiology ---
Cardiology SOAP Progress Note Objective: I&O/Vital Signs 08/11/21 08/11/21 08/11/21 08/12/21 20:00 21:00 22:00 00:00 Pulse 75 82 80 70 Resp 12 8 10 14 B/P (MAP) 128/88 (101) 142/91 (111) 139/85 (103) 123/75 (93) Pulse Ox 95 97 94 91 O2 Delivery Room Air Room Air Room Air Room Air 08/12/21 08/12/21 08/12/21 08/12/21 01:00 01:00 02:00 03:00 Pulse 92 92 81 67 Resp 17 37 10 B/P (MAP) 144/75 (102) 105/58 (66) 122/72 (90) Pulse Ox 85 89 97 O2 Delivery Room Air Room Air Room Air 08/12/21 08/12/21 05:00 06:00 Pulse 74 73 Resp 13 13 B/P (MAP) 133/79 (98) 133/80 (101) Pulse Ox 93 92 O2 Delivery Room Air Room Air Weight (Pounds): 280 Weight (Ounces): 0.0 Weight (Calculated Kilograms): 127.204484 Condition: DP/PT pulses palpable Device Insertion Site: without hematoma Bruising: mild bruising Constitutional: AAO x 3, well-developed Respiratory: No accessory muscle use; other (good, bilateral air entry) Cardiovascular: regular rate-rhythm, S1 and S2, systolic murmur (soft ALANNA at card base) Gastrointestional: No tender; soft; No guarding, No rebound; audible bowel sounds Extremities: No clubbing, No cyanosis, No significant edema Neurologic/Psychiatric: oriented x 3, other (moves all limbs equally) Skin: warm/dry Results/Procedures: Labs Laboratory Tests 08/11/21 12:06: Glucometer 195H 08/11/21 15:45: Glucometer 189H 08/11/21 20:18: Glucometer 182H 08/12/21 06:10: White Blood Count 8.6, Red Blood Count 5.40, Hemoglobin 15.3, Hematocrit 47, Mean Corpuscular Volume 86, Mean Corpuscular Hemoglobin 28, Mean Corpuscular Hemoglobin Concent 33, Red Cell Distribution Width 13.2, Platelet Count 195, Mean Platelet Volume 9.8, Immature Granulocyte % (Auto) 0, Neutrophils (%) (Auto) 78H, Lymphocytes (%) (Auto) 12, Monocytes (%) (Auto) 7, Eosinophils (%) (Auto) 2, Basophils (%) (Auto) 1, Neutrophils # (Auto) 6.7, Lymphocytes # (Auto) 1.1, Monocytes # (Auto) 0.6, Eosinophils # (Auto) 0.2, Basophils # (Auto) 0.0, Immature Granulocyte # (Auto) 0.0, Sodium Level 134L, Potassium Level 3.8, Chloride Level 102, Carbon Dioxide Level 22, Anion Gap 10, Blood Urea Nitrogen 12, Creatinine 0.78, Estimat Glomerular Filtration Rate 100, BUN/Creatinine Ratio 15, Glucose Level 143H, Calcium Level 8.9, Phosphorus Level 3.2, Magnesium Level 1.7 Laboratory Tests 08/11/21 07:31 08/12/21 06:10 A/P: Assessment: CAD - Card cath of 08-11-21(to treat progressive angina): Multivessel coronary artery disease. A 90% mid left anterior descending artery was successfully stented with StarPoint 2.5 x 28 mm stent. The first and second diagonal branches of the left anterior descending artery have diffuse severe disease and are not amenable to intervention. The left circumflex artery is nondominant and has moderate to moderately severe diffuse disease and is not amenable to intervention. The right coronary artery is dominant. The posterior descending branch appears occluded at its ostium. The distal right coronary artery has approximately 70% to 80% stenosis. Left ventricular end-diastolic pressure is 16 mmHg. The ejection fraction appears to be at the lower limit of normal with ejection fraction of 45% to 50%. SOB - Echocardiogram of 07-28-21 showed mild concentric hypertophy. LVEF 30-35%. LA midly dilated. Mitral valve annulus is mildly to mod calcified. PASP 30-35 mmHg. Abnormal ECG NSR with LBBB on ECG iof 07/20/21 Hypertension - controlled DM II - manged by PCP Hyperlipidemia - managed by PCP Obesity - with BMI approx 35 Plan: * I discussed in detail with him his cardiac findings and interventions und ertaken. I answered his questions * Risk factor mod reviewed * Advised to completely refrain from any tobacco use * Med compliance advised * Plavix, statin, ASA, and beta-monik continued * Outpt f/u advised VIVEK KATZ MD FACP [facility] Aug 12, 2021 07:56
--- NOTE | 2021-08-12 07:58 | Discharge Inst-Cardiology ---
Discharge Inst-Cardiac Patient Instructions Patient Instructions: DO NOT START METFROMIN UNTIL TOMORROW MORNING VIVEK KATZ MD [facility] Aug 12, 2021 07:58
--- NOTE | 2021-08-12 07:59 | Discharge Inst-Post CATH ---
Discharge Inst-CATH/EP Post Cardiac Cath/EP D/C Inst Follow Up/Plan F/u at our office in two weeks <b>CARDIAC CATH/EP PROCEDURE DISCHARGE INSTRUCTIONS</b> ACTIVITY * Go Home directly and rest. * Limit activity of the leg (or wrist if it was used) for 7 days including aerobics, swimming, jogging, bicycling, etc. * Restrict stair-climbing for 7 days if possible, if not, climb up with your non-cath leg, then bring together on the same step. * Avoid lifting, pushing, pulling or excessive movement of the affected extremity for 7 days. * Customary sexual activity may be resumed after 2 days-use caution not to use a position that strains or causes pain to the affected extremity. * No driving for 24 hours. * NO SMOKING. * Avoid straining for bowel movements for 7 days. * Gentle walking on level ground is allowed. * Returning to work will depend on the type of procedure and the results. Your doctor will discuss this with you. CALL YOUR DOCTOR FOR ANY OF THE FOLLOWING: *If bleeding from the puncture site occurs- Apply gentle pressure to site with clean cloth and call your doctor or EMS. * If a knot or lump forms under the skin, increases in size, or causes pain. * If bruising appears to be worsening or moving further down your leg instead of disappearing. * Temperature above 101 F. CARE OF YOUR GROIN INCISION; * Bruising or purple discoloration of the skin near the puncture site is common. * You may shower only, no bathtub bathing for 5 days. Be careful to avoid slipping as your leg may feel stiff. * If a closure device was used on your femoral artery, please see the attached guide regarding care of the device and your leg. * Leave dressing on FOR 24 hours. CARE OF YOUR WRIST INCISION; * Bruising or purple discoloration of the skin near the puncture site is common. * You may shower. * DO NOT submerge wrist. * Leave dressing on FOR 24 hours. VIVEK KATZ MD [facility]S Aug 12, 2021 07:59
[2021-08-12] MEDS: glyBURIDE 5 MG (MICRONASE) TAB PO SCH (08:08)
[2021-08-12] MEDS ORDERED: lisINopril 5 MG (PRINIVIL) TABLET PO SCH (09:00)
[2021-08-12] MEDS ORDERED: NON-FORMULARY MEDICATION 1 EA EA (Linaclotide (Linzess) 72 MCG) PO SCH (09:00)
[2021-08-12] MEDS ORDERED: ROSUVASTATIN 20 MG (CRESTOR) TABLET PO SCH (09:00)
[2021-08-12] MEDS ORDERED: PANTOPRAZOLE 40 MG (PROTONIX) TAB PO SCH (09:00)
[2021-08-12] MEDS ORDERED: CLOPIDOGREL 75 MG (PLAVIX) TABLET PO SCH (09:00)
[2021-08-12] MEDS ORDERED: meTOprolol SUCCINATE 100 MG (TOPROL XL) TAB PO SCH (09:00)
[2021-08-12] MEDS ORDERED: NON-FORMULARY MEDICATION 1 EA EA (Dapagliflozin Propanediol (Farxiga) 10 MG) PO SCH (09:00)
[2021-08-12] MEDS ORDERED: ASPIRIN 81 MG CHEW (CHILDREN'S ASA) PO SCH (09:00)
[2021-08-12] MEDS ORDERED: ISOSORBIDE MONONITRATE 60 MG (IMDUR) TAB PO SCH (09:00)
== END 2021-08-12 08:58 | disposition home or self-care (01) ==
LOC: CATH 09:00 → ICU 10:54 → CATH 08-12 08:58
PROVIDERS: ATTEND Internal Medicine Cardiovascular Disease
DX: I25.10 Atherosclerotic heart disease of native coronary artery without angina pectoris (principal); R94.39 Abnormal result of other cardiovascular function study; I10 Essential (primary) hypertension; E11.9 Type 2 diabetes mellitus without complications; E78.5 Hyperlipidemia, unspecified; E66.9 Obesity, unspecified; Z79.02 Long term (current) use of antithrombotics/antiplatelets; Z79.899 Other long term (current) drug therapy; Z79.82 Long term (current) use of aspirin; Z79.84 Long term (current) use of oral hypoglycemic drugs; Z68.35 Body mass index [BMI] 35.0-35.9, adult
CPT/HCPCS: 80048; 80053; 80061; 82947; 83735; 84100; 85025; 85027; 85610; 85730; 87081; 93005; 93458; C1725 ×2; C1760; C1769; C1874; C1887 ×2; C1894 ×2; C9600; 36415

== ENCOUNTER 2021-09-01 08:00 | Day surgery (SDC) | payer MEDICAID ==
[~2021-09-01] VITALS: Ht 185.4 cm; Wt 118.8 kg
--- OUTSIDE RECORDS SUMMARY | 2021-09-01 06:56 | XMS REPORT | Clinical Summary ---
Author Author [facility] Organization [facility] Address Unknown Phone Unavailable Care Team Providers Care Planning And Analysis Manager Name Role Phone Self, Willi PATTERSON PCP Source Comments Some departments are not documenting in the electronic medical record. If you d o not see the information that you expected, contact Release of Information in [facility] Storefront Information Management department at [phone] for further assistan ce in locating additional records.[facility] Allergies No known active allergies Medications End [...] tablet BY MOUTH 1 EVERY DAY NEEDED Active Problems Problem Noted Date Congenital spondylolisthesis [...] present (Primary Dx) 07/15/2021 Orders Only Neurosurgery from Last 3 Months Medical History Medical [...] Phone Address Plan / Dates Group Medicaid [employer] [facility] [id number] 2017-P [address] [facility] [phone] [place] [address] [phone] Advance Directives 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
--- OUTSIDE RECORDS SUMMARY | 2021-09-01 06:56 | XMS REPORT | Encounter Summary ---
Author Author [facility] Organization [facility] Address Unknown Phone Unavailable Care Team Providers Care Construction Helper Name Role Phone Self, Willi PATTERSON PCP Reason for Referral * Radiology Services (Routine) - New Request Diagnoses / Procedures Referred By Contact Referred To Conta ct Specialty Diagnoses Chronic low back pain, unspecified back pain laterality, unspecified whether sciatica present Procedures L SPINE COMPLETE Vazquez Mccauley MD [address] [place] [address] Radiology Referral ID Status Reason Start Date Expiration Visits Vi sits Date Requested Authorized [id number] New Request 07/15/2021 07/15/2022 1 1 Reason for Visit * Radiology Services (Routine) - New Request Diagnoses / Procedures Referred By Contact Referred To Conta ct Specialty Diagnoses Chronic low back pain, unspecified back pain laterality, unspecified whether sciatica present Procedures L SPINE COMPLETE Vazquez Mccauley MD [address] [place] [address] Radiology Referral ID Status Reason Start Date Expiration Visits Vi sits Date Requested Authorized [id number] New Request 07/15/2021 07/15/2022 1 1 Encounter Details Care Team Description Date Type Department Vazquez Mccauley MD [address] [place] [address] 07/15/2021 Hospital Imaging, Comprehens patricia Encounter Spine: [facility] [place], [facility] [address] [place] [address] [address], [address] [place] [address] Social History Date Tobacco Use [...] encounter Care Teams Start Date End Date Construction Helper Relationship Specialty 03/08/18 Willi Pierson MD PCP - General Family Medicine documented as of this encounter
[2021-09-01] MEDS: NS IV 1000 ML 1,000 ML IV SCH ×4 (07:11→20:20)
[2021-09-01 07:12] VITALS: BP 140/88
[2021-09-01 07:36] LABS: HEMATOCRIT 47 % (40-54); HEMOGLOBIN 15.6 g/dL (13.3-17.7); MEAN CORPUSCULAR HEMOGLOBIN 28 pg (25-34); MEAN CORPUSCULAR HGB CONC 33 g/dL (32-36); MEAN CORPUSCULAR VOLUME 85 fL (80-99); MEAN PLATELET VOLUME 9.7 fL (9.0-12.2); PLATELET COUNT 275 10^3/uL (130-400); WHITE BLOOD COUNT 10.5 10^3/uL (4.3-11.0)
[2021-09-01 07:41] LABS: PROTHROMBIN TIME PATIENT 13.7 SEC (12.2-14.7)
[2021-09-01 07:51] LABS: ALBUMIN 4.1 GM/DL (3.2-4.5); BILIRUBIN,TOTAL 0.5 MG/DL (0.1-1.0); CALCIUM 9.4 MG/DL (8.5-10.1); CREATININE SERUM 0.88 MG/DL (0.60-1.30); POTASSIUM 4.1 MMOL/L (3.6-5.0); TOTAL PROTEIN 7.2 GM/DL (6.4-8.2)
[~2021-09-01 08:00] MED LIST changes: +ASPI-1238 PO; -MIDAZOLAM 5 MG/5 ML (VERSED) VIAL ONE; -NS IV 1000 ML 1,000 ML IV SCH; -fentaNYL INJ 100 MCG/2 ML AMP ONE
[2021-09-01] MEDS ORDERED: fentaNYL INJ 100 MCG/2 ML AMP ONE ×2 (08:22→11:10)
[2021-09-01] MEDS ORDERED: HEParin 1000 UNIT/ML (10ML VIAL) FOR BOLUS ONE (08:23)
[2021-09-01] MEDS ORDERED: NITRO DRIP 25000 MCG/D5W 0 ML IV ONE (08:23)
[2021-09-01] MEDS ORDERED: MIDAZOLAM 5 MG/5 ML (VERSED) VIAL ONE (08:23)
--- NOTE | 2021-09-01 09:08 | Cardiac Procedure Note-CS/ASA ---
Pre-Procedure Note Pre-Op Procedure Note H&P Reviewed The H&P was reviewed, patient examined and no changes noted. Date H&P Reviewed: Sep 01, 2021 Time H&P Reviewed: 08:30 Conscious Sedation Pre-Proced Time 08:30 ASA Score 3 For ASA 3 and 4: Consider anesthesia and medical clearance. Also, for patients with a history of failed moderate sedation consider anesthesia. Airway Lungs Heart ASA score ASA 1: a normal healthy patient ASA 2: a patient with a mild systemic disease (mid diabetes, controlled hypertension, obesity ASA 3: a patient with a severe systemic disease that limits activity (angina, COPD, prior Myocardial infarction) ASA 4: a patient with an incapacitating disease that is a constant threat to life (CHF, renal failure) ASA 5: a moribund patient not expected to survive 24 hrs. (ruptured aneurysm) ASA 6: a declared brain- patient whose organs are being harvested. For emergent operations, add the letter E after the classification Mallampati Classification Grade 2 Sedation Plan Analgesia, Amnesia, Plan communicated to team members, Discussed options with patient/fam, Discussed risks with patient/fam The patient is an appropriate candidate to undergo the planned procedure, sedation, and anesthesia. The patient immediately re-assessed prior to indication. VIVEK KATZ MD FACP FAC [facility] Sep 01, 2021 09:08
[2021-09-01] MEDS ORDERED: ASPIRIN 81 MG CHEW (CHILDREN'S ASA) ONE (09:10)
[2021-09-01] MEDS ORDERED: CLOPIDOGREL 75 MG (PLAVIX) TABLET ONE (09:10)
[2021-09-01] MEDS ORDERED: GABAPENTIN 100 MG (NEURONTIN) CAP PO SCH (09:15)
[2021-09-01] MEDS ORDERED: PATIENT MAY USE OWN MEDS, ALL PO SCH (09:15)
[2021-09-01] MEDS ORDERED: ACETAMINOPHEN 500 MG TAB (TYLENOL) PO PRN (09:15)
[2021-09-01] MEDS ORDERED: ATROPINE INJECTION 1 MG/10 ML SYR (ABBOTT) ONE (11:10)
[2021-09-01] MEDS ORDERED: fentaNYL INJ 100 MCG/2 ML AMP IVP PRN (11:15)
--- NOTE | 2021-09-01 12:34 | CARDIAC CATHETERIZATION ---
DATE OF SERVICE: 09/01/2021 CORONARY INTERVENTION REPORT INDICATION FOR PROCEDURE: The patient is a 65-year-old gentleman, who is known to have coronary artery disease. He underwent stenting of the left anterior descending artery on 08/11/2021. At that time, he was also noted to have significant disease of the distal right coronary artery. He comes in today for intervention to the right coronary artery. PROCEDURE IN DETAIL: He was brought to the cardiac catheterization laboratory in a fasting state. The right groin was prepared and draped in the usual sterile fashion. Lidocaine 1% was used for local anesthesia. Modified Seldinger technique was used to advance a 6-Kazakh sheath into the right femoral artery. We then used a 6-Kazakh JR4 guide catheter with side holes to engage the right coronary artery. The patient was found to have an 80% distal stenosis prior to the origin of the terminal posterolateral branch. We advanced a ChoICE floppy wire across the lesion and the tip was placed in the distal posterolateral. We advanced a Skypoint 2.5 x 12 mm stent to the lesion and the stent was deployed at 14 atmospheres. The mid portion of the stent appeared slightly under deployed. We removed the stent balloon and advanced a noncompliant [place] 2.75 x 8 mm balloon to the mid portion of the stent and the balloon was inflated to 18 atmospheres. Full stent expansion was achieved. Subsequent angiography revealed 0% residual stenosis at the previous site of 80% stenosis and flow throughout the vessel is normal. The distal posterolateral has moderately severe disease, but is of too smaller caliber for intervention. Angioplasty equipment was removed. We then carried out angiography of the left coronary system using a 5-Kazakh JL4 catheter. The left anterior descending artery stent was found to be patent. The distal left anterior descending has moderate to moderately severe disease, but the vessel is of a small caliber and not amenable to intervention. The first and second diagonal branches of the left anterior descending artery have diffuse severe disease and are not amenable to intervention. The left circumflex artery is nondominant and has moderate to moderately severe disease. CONCLUSIONS: 1. Successful stenting of the distal right coronary artery with Skypoint 2.5 x 12 mm stent. Distal posterolateral has moderate to moderately severe disease, but is of a small caliber and not amenable to intervention. 2. Patent stent in the mid left anterior descending known to be 2.5 x 28 mm. Two diagonal branches exhibit diffuse severe disease and are not amenable to intervention because of small vessel caliber. The distal left anterior descending artery has diffuse moderate disease and is of a small caliber. Left circumflex is nondominant, small in caliber, and has diffuse moderate to moderately severe disease. Job ID: [id number] DocumentID: [id number] Dictated Date: 09/01/2021 09:18:28 Pizza Chef Date: 09/01/2021 12:34:18 Dictated By: VIVEK KATZ MD, MA, FACP, FACC, MTDD
[2021-09-01] MEDS: inSUlin ASPART (NovoLOG) 1 UNIT/0.01 ML (CHARGE PER UNIT) SC SCH ×3 (13:27→19:59)
[2021-09-01] MEDS: GABAPENTIN 100 MG (NEURONTIN) CAP PO SCH ×2 (14:48→21:11)
[2021-09-01] MEDS ORDERED: TEMAZEPAM 15 MG (RESTORIL) CAP PO PRN (16:45)
[2021-09-01] MEDS: glyBURIDE 5 MG (MICRONASE) TAB PO SCH (17:07)
[2021-09-01] MEDS ORDERED: DULoxetine 30 MG (CYMBALTA) CAP PO SCH (21:00)
[2021-09-01] MEDS ORDERED: amLODIPine 5 MG (NORVASC) TAB PO SCH (21:00)
[2021-09-02] MEDS: NS IV 1000 ML 1,000 ML IV SCH ×2 (03:21→05:21)
[2021-09-02] MEDS: GABAPENTIN 100 MG (NEURONTIN) CAP PO SCH (06:08)
[2021-09-02] MEDS: inSUlin ASPART (NovoLOG) 1 UNIT/0.01 ML (CHARGE PER UNIT) SC SCH ×2 (06:11→08:29)
--- NOTE | 2021-09-02 07:53 | Progress Note - Cardiology ---
Cardiology SOAP Progress Note Subjective: Lying in bed No c/o CP, SOB, palpitations C/O mild tenderness at groin site with palpation Objective: I&O/Vital Signs 09/01/21 09/02/21 09/02/21 09/02/21 23:16 01:00 03:21 08:00 Temp 36.3 36.7 Pulse 67 74 94 Resp 20 16 B/P (MAP) 134/79 139/78 Pulse Ox 97 95 96 O2 Delivery Room Air Room Air Room Air 09/02/21 08:20 Temp 36.4 Pulse 78 Resp 14 B/P (MAP) 131/80 Pulse Ox 94 O2 Delivery Room Air 09/02/21 00:00 Intake Total 1150 ml Output Total 0 ml Balance 1150 ml Weight (Pounds): 280 Weight (Ounces): 0.0 Weight (Calculated Kilograms): 127.020818 Side: right Groin site without hematoma: Yes Condition: DP/PT pulses palpable Bruising: mild bruising Constitutional: AAO x 3, well-developed, well-nourished Respiratory: No accessory muscle use, No respiratory distress; chest expansion is symmetric, chest is bilaterally symmetric Cardiovascular: regular rate-rhythm; No JVD; S1 and S2 Gastrointestional: No tender; soft, round, audible bowel sounds Extremities: no lower extremity edema bilateral Neurologic/Psychiatric: grossly intact (moves all extremities) Skin: No rash on exposed areas, No ulcerations on exposed areas Results/Procedures: Labs Laboratory Tests 09/01/21 13:26: Glucometer 112H 09/01/21 14:47: Glucometer 111H 09/01/21 19:58: Glucometer 178H 09/02/21 06:11: Glucometer 151H 09/02/21 08:04: White Blood Count 9.5, Red Blood Count 5.48, Hemoglobin 15.3, Hematocrit 47, Mean Corpuscular Volume 86, Mean Corpuscular Hemoglobin 28, Mean Corpuscular Hemoglobin Concent 33, Red Cell Distribution Width 13.1, Platelet Count 269, Mean Platelet Volume 9.4, Sodium Level 138, Potassium Level 4.1, Chloride Level 102, Carbon Dioxide Level 24, Anion Gap 12, Blood Urea Nitrogen 12, Creatinine 0.80, Estimat Glomerular Filtration Rate 97, BUN/Creatinine Ratio 15, Glucose Level 168H, Calcium Level 9.1 Microbiology 09/01/21 MRSA Screen - Final, Complete MRSA not isolated Procedures S/P cardiac cath with successful coronary intervention on 09-01-21 - please refer to Dr. Juarez's cardiac cath report for details A/P: Assessment: CAD - Card cath of 08-11-21(to treat progressive angina): Multivessel coronary artery disease. A 90% mid left anterior descending artery was successfully stented with StarPoint 2.5 x 28 mm stent. The first and second diagonal branches of the left anterior descending artery have diffuse severe disease and are not amenable to intervention. The left circumflex artery is nondominant and has moderate to moderately severe diffuse disease and is not amenable to intervention. The right coronary artery is dominant. The posterior descending branch appears occluded at its ostium. The distal right coronary artery has approximately 70% to 80% stenosis. Left ventricular end-diastolic pressure is 16 mmHg. The ejection fraction appears to be at the lower limit of normal with ejec tion fraction of 45% to 50%. - Cardiac cath of 09-01-21: Successful stenting of the distal right coronary artery with Skypoint 2.5 x 12 mm stent. Distal posterolateral has moderate to moderately severe disease, but is of a small caliber and not amenable to intervention. Patent stent in the mid left anterior descending known to be 2.5 x 28 mm. Two diagonal branches exhibit diffuse severe disease and are not amenable to intervention because of small vessel caliber. The distal left anterior descending artery has diffuse moderate disease and is of a small caliber. Left circumflex is nondominant, small in caliber, and has diffuse moderate to moderately severe disease. SOB - Echocardiogram of 07-28-21 showed mild concentric hypertophy. LVEF 30-35%. LA midly dilated. Mitral valve annulus is mildly to mod calcified. PASP 30-35 mmHg. Abnormal ECG - NSR with LBBB on ECG of 07/20/21 Hypertension - controlled DM II - manged by PCP Hyperlipidemia - managed by PCP Obesity - with BMI approx 35 Plan: S/P cardiac cath with successful coronary intervention on 09-01-21 Continue current medication regimen including DAPT, statin and BB Out pt f/u in 1 week HALIMA DEVI Sep 02, 2021 07:53
--- NOTE | 2021-09-02 07:55 | Discharge Inst-Cardiology ---
Discharge Inst-Cardiac Discharge Medications Continued Medications: Acetaminophen (Acetaminophen) 500 Mg Tablet 2000 MG PO Q8H PRN for PAIN-MILD, TAB Amlodipine Besylate (Norvasc) 5 Mg Tablet 5 MG PO HS, TAB Aspirin (Aspirin EC) 81 Mg Tablet.dr 81 MG PO DAILY, TAB Clopidogrel Bisulfate (Plavix) 75 Mg Tablet 75 MG PO DAILY, TAB Dapagliflozin Propanediol (Farxiga) 10 Mg Tablet 10 MG PO DAILY, TAB Duloxetine HCl (Duloxetine HCl) 30 Mg Capsule.dr 30 MG PO HS, CAP Gabapentin (Gabapentin) 100 Mg Capsule 100 MG PO Q8H for Neuropathic pain, CAP Glyburide (Glyburide) 5 Mg Tablet 5 MG PO BID WITH MEALS, TAB Isosorbide Mononitrate (Isosorbide Mononitrate ER) 60 Mg Tab 60 MG PO DAILY, TAB Linaclotide (Linzess) 72 Mcg Capsule 72 MCG PO DAILY, CAP Lisinopril (Lisinopril) 5 Mg Tablet 5 MG PO DAILY, TAB Metformin HCl (Metformin HCl) 1,000 Mg Tablet 1000 MG PO BID, TAB Metoprolol Succinate (Metoprolol Succinate) 100 Mg Tab.er.24h 100 MG PO DAILY, TAB Pantoprazole Sodium (Protonix) 40 Mg Tablet.dr 40 MG PO DAILY, TAB Rosuvastatin Calcium (Rosuvastatin Calcium) 20 Mg Tablet 20 MG PO DAILY, TAB Patient Instructions Patient Instructions: DO NOT RESTART METFORMIN UNTIL August Please schedule follow up appointment to see Dr. Juarez next week HALIMA DEVI Sep 02, 2021 07:55
[2021-09-02] MEDS: glyBURIDE 5 MG (MICRONASE) TAB PO SCH (08:00)
[2021-09-02 08:11] LABS: HEMATOCRIT 47 % (40-54); HEMOGLOBIN 15.3 g/dL (13.3-17.7); MEAN CORPUSCULAR HEMOGLOBIN 28 pg (25-34); MEAN CORPUSCULAR HGB CONC 33 g/dL (32-36); MEAN CORPUSCULAR VOLUME 86 fL (80-99); MEAN PLATELET VOLUME 9.4 fL (9.0-12.2); PLATELET COUNT 269 10^3/uL (130-400); WHITE BLOOD COUNT 9.5 10^3/uL (4.3-11.0)
[2021-09-02 08:27] LABS: CALCIUM 9.1 MG/DL (8.5-10.1); CREATININE SERUM 0.8 MG/DL (0.60-1.30); POTASSIUM 4.1 MMOL/L (3.6-5.0)
[2021-09-02] MEDS ORDERED: ASPIRIN E.C. 81 MG (ECOTRIN) TAB PO SCH (09:00)
[2021-09-02] MEDS ORDERED: PANTOPRAZOLE 40 MG (PROTONIX) TAB PO SCH (09:00)
[2021-09-02] MEDS ORDERED: [UNRECOGNIZED DRUG - REMARK] PO SCH (09:00)
[2021-09-02] MEDS ORDERED: ROSUVASTATIN 20 MG (CRESTOR) TABLET PO SCH (09:00)
[2021-09-02] MEDS ORDERED: CLOPIDOGREL 75 MG (PLAVIX) TABLET PO SCH (09:00)
[2021-09-02] MEDS ORDERED: NON-FORMULARY MEDICATION 1 EA EA (Dapagliflozin Propanediol (Farxiga) 10 MG) PO SCH (09:00)
[2021-09-02] MEDS ORDERED: meTOprolol SUCCINATE 100 MG (TOPROL XL) TAB PO SCH (09:00)
[2021-09-02] MEDS ORDERED: ISOSORBIDE MONONITRATE 60 MG (IMDUR) TAB PO SCH (09:00)
[2021-09-02] MEDS ORDERED: lisINopril 5 MG (PRINIVIL) TABLET PO SCH (09:00)
--- NOTE | 2021-09-02 17:00 | Progress Note - Cardiology ---
Cardiology SOAP Progress Note Subjective: No cp or palp or syncope or shortness of breath No n/v/d No weakness or focal weakness No groin or leg discomfort or discoloration Objective: I&O/Vital Signs 09/02/21 09/02/21 08:00 08:20 Temp 36.4 Pulse 78 Resp 14 B/P (MAP) 131/80 Pulse Ox 96 94 O2 Delivery Room Air Room Air 09/02/21 00:00 Intake Total 1150 ml Output Total 0 ml Balance 1150 ml Weight (Pounds): 280 Weight (Ounces): 0.0 Weight (Calculated Kilograms): 127.532694 Side: right Groin site without hematoma: Yes Condition: DP/PT pulses palpable Bruising: mild bruising Constitutional: AAO x 3, well-developed, well-nourished Respiratory: No accessory muscle use, No respiratory distress; chest expansion is symmetric, chest is bilaterally symmetric Cardiovascular: regular rate-rhythm; No JVD; S1 and S2 Gastrointestional: No tender; soft, round, audible bowel sounds Extremities: no lower extremity edema bilateral Neurologic/Psychiatric: grossly intact (moves all extremities) Skin: No rash on exposed areas, No ulcerations on exposed areas Results/Procedures: Labs Laboratory Tests 09/01/21 19:58: Glucometer 178H 09/02/21 06:11: Glucometer 151H 09/02/21 08:04: White Blood Count 9.5, Red Blood Count 5.48, Hemoglobin 15.3, Hematocrit 47, Mean Corpuscular Volume 86, Mean Corpuscular Hemoglobin 28, Mean Corpuscular Hemoglobin Concent 33, Red Cell Distribution Width 13.1, Platelet Count 269, Mean Platelet Volume 9.4, Sodium Level 138, Potassium Level 4.1, Chloride Level 102, Carbon Dioxide Level 24, Anion Gap 12, Blood Urea Nitrogen 12, Creatinine 0.80, Estimat Glomerular Filtration Rate 97, BUN/Creatinine Ratio 15, Glucose Level 168H, Calcium Level 9.1 Microbiology 09/01/21 MRSA Screen - Final, Complete MRSA not isolated A/P: Assessment: CAD - Card cath of 08-11-21(to treat progressive angina): Multivessel coronary artery disease. A 90% mid left anterior descending artery was successfully stented with StarPoint 2.5 x 28 mm stent. The first and second diagonal branches of the left anterior descending artery have diffuse severe disease and are not amenable to intervention. The left circumflex artery is nondominant and has moderate to moderately severe diffuse disease and is not amenable to intervention. The right coronary artery is dominant. The posterior descending branch appears occluded at its ostium. The distal right coronary artery has approximately 70% to 80% stenosis. Left ventricular end-diastolic pressure is 16 mmHg. The ejection fraction appears to be at the lower limit of normal with ejection fraction of 45% to 50%. - Cardiac cath of 09-01-21: Successful stenting of the distal right coronary artery with Skypoint 2.5 x 12 mm stent. Distal posterolateral has moderate to moderately severe disease, but is of a small caliber and not amenable to intervention. Patent stent in the mid left anterior descending known to be 2.5 x 28 mm. Two diagonal branches exhibit diffuse severe disease and are not amenable to intervention because of small vessel caliber. The distal left anterior d escending artery has diffuse moderate disease and is of a small caliber. Left circumflex is nondominant, small in caliber, and has diffuse moderate to moderately severe disease. SOB - Echocardiogram of 07-28-21 showed mild concentric hypertophy. LVEF 30-35%. LA midly dilated. Mitral valve annulus is mildly to mod calcified. PASP 30-35 mmHg. Abnormal ECG - NSR with LBBB on ECG of 07/20/21 Hypertension - controlled DM II - manged by PCP Hyperlipidemia - managed by PCP Obesity - with BMI approx 35 Plan: S/P cardiac cath with successful coronary intervention on 09-01-21. I had a long and detailed discussion with him regarding the findings of cath and the interventions undertaken Continue current medication regimen including DAPT, statin and BB. I had a long and detailed discussion with him regarding the rationale, pros and cons of meds. He has tolerated the current regimen well. We advised compliance We discussed the risk factor modification and its importance Out pt f/u in 1 week VIVEK KATZ MD [facility] Sep 02, 2021 17:00
== END 2021-09-02 09:36 | disposition home or self-care (01) ==
LOC: CATH 08:00 → ICU 12:31 → CSD 16:26 → CATH 09-02 09:36
PROVIDERS: ATTEND Internal Medicine Cardiovascular Disease
DX: I25.119 Atherosclerotic heart disease of native coronary artery with unspecified angina pectoris (principal); I11.9 Hypertensive heart disease without heart failure; E11.9 Type 2 diabetes mellitus without complications; E78.2 Mixed hyperlipidemia; I25.5 Ischemic cardiomyopathy; R06.02 Shortness of breath; I44.7 Left bundle-branch block, unspecified; E66.9 Obesity, unspecified; Z68.34 Body mass index [BMI] 34.0-34.9, adult; Z95.5 Presence of coronary angioplasty implant and graft; Z79.82 Long term (current) use of aspirin; Z79.84 Long term (current) use of oral hypoglycemic drugs; Z79.899 Other long term (current) drug therapy
CPT/HCPCS: 80048; 80053; 80061; 82947 ×2; 85027 ×2; 85610; 85730; 87081; C1725; C1769; C1874; C1887; C1894; C9600; 36415

== ENCOUNTER → 2021-09-14 | Outpatient (CLI) | payer MEDICAID ==
[~2021-09-14] MED LIST changes: +CATHETER FLUSH 10 ML SYR IV PRN; -HEParin (CATH LAB) 2,000 ML IV ONE; +HOLD METFORMIN - RECEIVED CONTRAST 20 ML VIAL IV SCH; +IOHEXOL 350 MG/ML 100 ML (OMNIPAQUE 350) VIAL IV ONE; -LIDOCAINE 1% INJ 20 ML 20 ML VIAL ONE; +NS 100 ML (IVPB) BAG IV ONE; -NS IV 1000 ML 1,000 ML ONE
[2021-09-14 10:19] LABS: CALCIUM 9.3 MG/DL (8.5-10.1); CREATININE SERUM 1.01 MG/DL (0.60-1.30); POTASSIUM 4.1 MMOL/L (3.6-5.0)
--- NOTE | 2021-09-14 11:48 | Diagnostic Imaging Report ---
PROCEDURE: CT abdomen with contrast only. TECHNIQUE: Multiple contiguous axial images were obtained through the abdomen after the administration of intravenous contrast. Auto Exposure Controls were utilized during the CT exam to meet ALARA standards for radiation dose reduction. INDICATION: Generalized abdominal pain and constipation for one year. FINDINGS: Lung bases are clear. Liver does show some generalized low density consistent with hepatic steatosis. No discrete liver mass is detected. Gallbladder is surgically absent. No biliary ductal dilatation is seen. Pancreas and spleen are unremarkable. No adrenal mass is detected. A left kidney does contain a 3.2 cm cortical low-attenuation lesion suggestive of a cyst. Smaller cortical low-attenuation lesions in both kidneys are also noted which are too small to characterize but likely cysts. Aorta is calcified but nonaneurysmal. No central retroperitoneal or mesenteric lymphadenopathy is seen. Small and large bowel loops are normal caliber. There appears to be diverticulosis without acute diverticulitis No ascites. IMPRESSION: 1. Hepatic steatosis. 2. Status post cholecystectomy. 3. Bilateral renal cysts. 4. Uncomplicated diverticulosis. Dictated by: Dictated on workstation # [id number]
== END ==
LOC: RAD FS 09:26
PROVIDERS: ATTEND Family Medicine
DX: K76.0 Fatty (change of) liver, not elsewhere classified (principal); N28.1 Cyst of kidney, acquired; K57.30 Diverticulosis of large intestine without perforation or abscess without bleeding; Z90.49 Acquired absence of other specified parts of digestive tract
CPT/HCPCS: 36415; 74160; 80048

== ENCOUNTER 2022-01-05 08:00 | Day surgery (SDC) | payer MEDICAID ==
[~2022-01-05] VITALS: Ht 185 cm; Wt 124.7 kg
[2022-01-05] VITALS (16 sets, daily range): BP systolic 110–145; BP diastolic 70–85
[2022-01-05 07:35] LABS: HEMATOCRIT 52 % (40-54); HEMOGLOBIN 16.8 g/dL (13.3-17.7); MEAN CORPUSCULAR HEMOGLOBIN 28 pg (25-34); MEAN CORPUSCULAR HGB CONC 33 g/dL (32-36); MEAN CORPUSCULAR VOLUME 85 fL (80-99); MEAN PLATELET VOLUME 9.9 fL (9.0-12.2); PLATELET COUNT 219 10^3/uL (130-400); WHITE BLOOD COUNT 7.9 10^3/uL (4.3-11.0)
[2022-01-05 07:45] LABS: INR 0.9 (0.8-1.4); PROTHROMBIN TIME PATIENT 12.5 SEC (12.2-14.7)
[2022-01-05 07:49] LABS: ALBUMIN 4.4 GM/DL (3.2-4.5); POTASSIUM 3.9 MMOL/L (3.6-5.0)
[2022-01-05 07:50] LABS: CALCIUM 9.4 MG/DL (8.5-10.1)
[2022-01-05 07:52] LABS: TOTAL PROTEIN 7.2 GM/DL (6.4-8.2)
[2022-01-05 07:53] LABS: BILIRUBIN,TOTAL 0.6 MG/DL (0.1-1.0)
[2022-01-05 07:55] LABS: CREATININE SERUM 0.98 MG/DL (0.60-1.30)
[~2022-01-05 08:00] MED LIST changes: +ACHD5005 PO; -CATHETER FLUSH 10 ML SYR IV PRN; +CHOL200074 PO; +GABA300C PO; +HEParin (CATH LAB) 2,000 ML IV ONE; -HOLD METFORMIN - RECEIVED CONTRAST 20 ML VIAL IV SCH; -IOHEXOL 350 MG/ML 100 ML (OMNIPAQUE 350) VIAL IV ONE; +LIDOCAINE 1% INJ 50 ML (XYLOCAINE) VIAL ONE; -NS 100 ML (IVPB) BAG IV ONE; +NS IV 1000 ML 1,000 ML IV SCH; +NS IV 1000 ML 1,000 ML ONE
[2022-01-05] MEDS ORDERED: MIDAZOLAM 5 MG/5 ML (VERSED) VIAL ONE (08:27)
[2022-01-05] MEDS ORDERED: fentaNYL INJ 100 MCG/2 ML AMP ONE (08:27)
[2022-01-05] MEDS ORDERED: HEParin 1000 UNIT/ML (10ML VIAL) FOR BOLUS ONE (09:49)
[2022-01-05] MEDS ORDERED: ASPIRIN 81 MG CHEW (CHILDREN'S ASA) ONE (10:26)
[2022-01-05] MEDS ORDERED: CLOPIDOGREL 75 MG (PLAVIX) TABLET ONE (10:26)
--- NOTE | 2022-01-05 10:54 | Cardiac Procedure Note-CS/ASA ---
Pre-Procedure Note Pre-Op Procedure Note H&P Reviewed The H&P was reviewed, patient examined and no changes noted. Date H&P Reviewed: Jan 05, 2022 Time H&P Reviewed: 08:45 Conscious Sedation Pre-Proced Time 08:45 ASA Score 3 For ASA 3 and 4: Consider anesthesia and medical clearance. Also, for patients with a history of failed moderate sedation consider anesthesia. Airway Lungs Heart ASA score ASA 1: a normal healthy patient ASA 2: a patient with a mild systemic disease (mid diabetes, controlled hypertension, obesity ASA 3: a patient with a severe systemic disease that limits activity (angina, COPD, prior Myocardial infarction) ASA 4: a patient with an incapacitating disease that is a constant threat to life (CHF, renal failure) ASA 5: a moribund patient not expected to survive 24 hrs. (ruptured aneurysm) ASA 6: a declared brain- patient whose organs are being harvested. For emergent operations, add the letter E after the classification Mallampati Classification Grade 3 Sedation Plan Analgesia, Amnesia, Plan communicated to team members, Discussed options with patient/fam, Discussed risks with patient/fam The patient is an appropriate candidate to undergo the planned procedure, sedation, and anesthesia. The patient immediately re-assessed prior to indication. VIVEK KATZ MD FACP [facility] Jan 05, 2022 10:54
[2022-01-05] MEDS ORDERED: PATIENT MAY USE OWN MEDS, ALL PO SCH (11:00)
[2022-01-05] MEDS ORDERED: HYDROcodone/APAP 5 MG/325 MG (LORTAB) TAB PO PRN (11:00)
[2022-01-05] MEDS ORDERED: ACETAMINOPHEN 500 MG TAB (TYLENOL) PO PRN (11:00)
[2022-01-05] MEDS ORDERED: NON-FORMULARY MEDICATION 1 EA EA (Linaclotide (Linzess) 72 MCG) PO SCH (11:00)
--- NOTE | 2022-01-05 11:04 | OPERATIVE REPORT ---
DATE OF SERVICE: 01/05/2022 PERIPHERAL ANGIOGRAPHY AND INTERVENTION REPORT INDICATION FOR PROCEDURE: The patient is a 66-year-old man, who has leg claudication, more on the left. Noninvasive workup indicated significant distal disease of the leg arteries. Peripheral angiography was recommended and was carried out today after having obtained an informed consent for peripheral angiography and possible ad hoc intervention. DESCRIPTION OF PROCEDURE: He was brought to the cardiac catheterization laboratory in a fasting state. Right groin was prepared and draped in the usual sterile fashion. Lidocaine 1% was used for local anesthesia. Modified Seldinger technique was used to advance a 5-Moroccan sheath into the right femoral artery. A 5-Moroccan pigtail catheter was used to carry out abdominal aortic angiography with the pigtail catheter placed at the level of L1. Subsequently, the pigtail catheter was pulled back down to just above the level of the aortoiliac bifurcation and bilateral leg artery angiography was performed with a runoff down to the level of the ankles. After that, we carried out selective angiography of the distal left superficial femoral artery. We used a crossover catheter to advance a guidewire into the left superficial femoral artery. We were able to advance a straight catheter and we removed the wire and carried out selective angiography of this vessel. Subsequently, we proceeded with a percutaneous intervention to the left peroneal artery that is described below. PERCUTANEOUS BALLOON ANGIOPLASTY OF THE LEFT PERONEAL ARTERY: We placed a wire in the left superficial femoral artery and over that, we were able to exchange the 5-Moroccan sheath for a long (55 cm) 6-Moroccan sheath, which was advanced into the proximal part of the left superficial femoral artery. We then removed the guidewire and we were able to advance a Command wire across the 90% stenosis in the proximal part of the left peroneal artery. We carried out balloon angioplasty with a 3.0 x 40 mm balloon that reduced the 90% stenosis to less than 10% residual and the flow throughout the vessel was brisk. The left posterior tibial artery is chronically occluded at its ostium and its distal portion collateralizes via the left peroneal artery. The left anterior tibial artery is occluded in its proximal portion. ABDOMINAL AORTIC ANGIOGRAPHY: Abdominal aortic angiography did not indicate any abdominal aortic stenosis. There is mild plaque of the abdominal aorta, including the aortoiliac bifurcation. The renal arteries are identified and do not exhibit significant disease. BILATERAL LEG ARTERY ANGIOGRAPHY: Bilateral leg artery angiography indicated that the iliac arteries and the common femoral arteries were intact on both sides. The superficial femoral arteries have [id number] plaque throughout their courses on both sides. The popliteal arteries have spor-ro-tpezritb plaque throughout their courses on both sides. On the right side, the anterior tibial artery appears to be occluded in its proximal portion. The peroneal artery appears to be intact. The posterior tibial artery is intact, but appears to have significant disease in its proximal portion. On the left side, the posterior tibial artery is occluded at its ostium. The peroneal artery is intact throughout its course, but had a 90% stenosis in its proximal portion to which successful balloon angioplasty was carried out with reduction of stenosis to less than 10% residual. The peroneal artery supplies collaterals to the distal left posterior tibial artery. The anterior tibial artery is occluded in its proximal portion on the left side. CONCLUSION: Considerable disease of the distal peripheral arteries on both sides. The right leg has a 2-vessel runoff. The left leg has a 1-vessel runoff (peroneal) that was compromised by a 90% proximal stenosis to which successful balloon angioplasty was carried out with reduction of stenosis to less than 10% residual. Job ID: [id number] DocumentID: [id number] Dictated Date: 01/05/2022 10:49:08 Oil Processing Technician Date: 01/05/2022 11:03:35 Dictated By: VIVEK KATZ MD, MA, FACP, FACC,
[2022-01-05] MEDS ORDERED: GABAPENTIN 300 MG (NEURONTIN) CAP PO SCH (13:00)
[2022-01-05] MEDS: NS IV 1000 ML 1,000 ML IV SCH (14:44)
[2022-01-05] MEDS: inSUlin ASPART (NovoLOG) 1 UNIT/0.01 ML (CHARGE PER UNIT) SC SCH ×2 (16:50→20:18)
[2022-01-05] MEDS: glyBURIDE 5 MG (MICRONASE) TAB PO SCH (17:39)
[2022-01-05] MEDS: GABAPENTIN 300 MG (NEURONTIN) CAP PO SCH (20:18)
[2022-01-05] MEDS ORDERED: amLODIPine 5 MG (NORVASC) TAB PO SCH (21:00)
[2022-01-05] MEDS ORDERED: DULoxetine 30 MG (CYMBALTA) CAP PO SCH (21:00)
[2022-01-05] MEDS ORDERED: ROSUVASTATIN 20 MG (CRESTOR) TABLET PO SCH (21:00)
[2022-01-05] MEDS ORDERED: PANTOPRAZOLE 40 MG (PROTONIX) TAB PO SCH (21:00)
[2022-01-06] VITALS: BP 131/77
[2022-01-06] MEDS: NS IV 1000 ML 1,000 ML IV SCH (04:04)
[2022-01-06 04:20] VITALS: BP 139/81
[2022-01-06 05:21] LABS: BASOPHILS # (AUTO) 0.1 10^3/uL (0.0-0.1); BASOPHILS % (AUTO) 1 % (0-10); EOSINOPHILS # (AUTO) 0.2 10^3/uL (0.0-0.3); EOSINOPHILS % (AUTO) 2 % (0-10); HEMATOCRIT 48 % (40-54); HEMOGLOBIN 15.5 g/dL (13.3-17.7); LYMPHOCYTES # (AUTO) 1.7 10^3/uL (1.0-4.0); LYMPHOCYTES % (AUTO) 22 % (12-44); MEAN CORPUSCULAR HEMOGLOBIN 28 pg (25-34); MEAN CORPUSCULAR HGB CONC 33 g/dL (32-36); MEAN CORPUSCULAR VOLUME 85 fL (80-99); MEAN PLATELET VOLUME 9.8 fL (9.0-12.2); MONOCYTES # (AUTO) 0.5 10^3/uL (0.0-1.0); MONOCYTES % (AUTO) 7 % (0-12); NEUTROPHILS # (AUTO) 5.4 10^3/uL (1.8-7.8); NEUTROPHILS % (AUTO) 69 % (42-75); PLATELET COUNT 183 10^3/uL (130-400); WHITE BLOOD COUNT 7.8 10^3/uL (4.3-11.0)
[2022-01-06 05:30] LABS: POTASSIUM 3.7 MMOL/L (3.6-5.0)
[2022-01-06 05:31] LABS: CALCIUM 8.6 MG/DL (8.5-10.1)
[2022-01-06 05:36] LABS: CREATININE SERUM 0.81 MG/DL (0.60-1.30)
[2022-01-06] MEDS: inSUlin ASPART (NovoLOG) 1 UNIT/0.01 ML (CHARGE PER UNIT) SC SCH ×2 (06:47→10:38)
[2022-01-06 07:45] VITALS: BP 137/78
[2022-01-06 08:00] VITALS: BP 141/85
--- NOTE | 2022-01-06 08:05 | Progress Note - Cardiology ---
Cardiology SOAP Progress Note Objective: I&O/Vital Signs 01/05/22 01/06/22 01/06/22 01/06/22 20:45 00:00 01:00 04:20 Temp 36.3 Pulse 73 72 69 Resp 15 12 B/P (MAP) 131/77 (95) 139/81 (100) Pulse Ox 96 94 93 O2 Delivery Room Air Room Air Room Air 01/06/22 07:45 Temp 36.1 Pulse 69 Resp 12 B/P (MAP) 137/78 (97) Pulse Ox 93 O2 Delivery Room Air 01/06/22 00:00 Intake Total 500 ml Output Total 600 ml Balance -100 ml Weight (Pounds): 280 Weight (Ounces): 0.0 Weight (Calculated Kilograms): 127.429857 Results/Procedures: Labs Laboratory Tests 01/05/22 19:39: Glucometer 197H 01/06/22 05:01: White Blood Count 7.8, Red Blood Count 5.62H, Hemoglobin 15.5, Hematocrit 48, Mean Corpuscular Volume 85, Mean Corpuscular Hemoglobin 28, Mean Corpuscular Hemoglobin Concent 33, Red Cell Distribution Width 14.7H, Platelet Count 183, Mean Platelet Volume 9.8, Immature Granulocyte % (Auto) 0, Neutrophils (%) (Auto) 69, Lymphocytes (%) (Auto) 22, Monocytes (%) (Auto) 7, Eosinophils (%) (Auto) 2, Basophils (%) (Auto) 1, Neutrophils # (Auto) 5.4, Lymphocytes # (Auto) 1.7, Monocytes # (Auto) 0.5, Eosinophils # (Auto) 0.2, Basophils # (Auto) 0.1, Immature Granulocyte # (Auto) 0.0, Sodium Level 137, Potassium Level 3.7, Chloride Level 104, Carbon Dioxide Level 20L, Anion Gap 13, Blood Urea Nitrogen 10, Creatinine 0.81, Estimat Glomerular Filtration Rate 98, BUN/Creatinine Ratio 12, Glucose Level 125H, Calcium Level 8.6 01/06/22 06:43: Glucometer 121H Microbiology 01/05/22 MRSA Screen - Final, Complete MRSA not isolated Laboratory Tests 01/05/22 07:24 01/06/22 05:01 A/P: Assessment: PAD - Peripheral angiogram of 01-05-22: Considerable disease of the distal peripheral arteries on both sides. The right leg has a 2-vessel runoff. The left leg has a 1-vessel runoff (peroneal) that was compromised by a 90% proximal stenosis to which successful balloon angioplasty was carried out with reduction of stenosis to less than 10% residual. CAD - Card cath of 08-11-21(to treat progressive angina): Multivessel coronary artery disease. A 90% mid left anterior descending artery was successfully stented with StarPoint 2.5 x 28 mm stent. The first and second diagonal branches of the left anterior descending artery have diffuse severe disease and are not amenable to intervention. The left circumflex artery is nondominant and has moderate to moderately severe diffuse disease and is not amenable to intervention. The right coronary artery is dominant. The posterior descending branch appears occluded at its ostium. The distal right coronary artery has approximately 70% to 80% stenosis. Left ventricular end-diastolic pressure is 16 mmHg. The ejection fraction appears to be at the lower limit of normal with ejection fraction of 45% to 50%. - Cardiac cath of 09-01-21: Successful stenting of the distal right coronary artery with Skypoint 2.5 x 12 mm stent. Distal posterolateral has moderate to moderately severe disease, but is of a small caliber and not amenable to intervention. Patent stent in the mid left anterior descending known to be 2.5 x 28 mm. Two diagonal branches exhibit diffuse severe disease and are not amenable to intervention because of small vessel caliber. The distal left anterior descending artery has diffuse moderate disease and is of a small caliber. Left circumflex is nondominant, small in caliber, and has diffuse moderate to moderately severe disease. SOB - Echocardiogram of 07-28-21 showed mild concentric hypertophy. LVEF 30-35%. LA midly dilated. Mitral valve annulus is mildly to mod calcified. PASP 30-35 mmHg. Unilateral leg swelling - left leg, undetermined etiology Abnormal ECG - NSR with LBBB on ECG of 07/20/21 Hypertension - controlled DM II - manged by PCP Hyperlipidemia - managed by PCP Obesity - with BMI approx 35 HALIMA DEVI Jan 06, 2022 08:04
--- NOTE | 2022-01-06 08:06 | Discharge Inst-Cardiology ---
Discharge Inst-Cardiac Discharge Medications Continued Medications: Acetaminophen (Acetaminophen) 500 Mg Tablet 2000 MG PO Q8H PRN for PAIN-MILD, TAB Amlodipine Besylate (Norvasc) 5 Mg Tablet 5 MG PO HS, TAB Aspirin (Aspirin EC) 81 Mg Tablet.dr 81 MG PO DAILY, TAB Cholecalciferol (Vitamin D3) (Vitamin D3) 50 Mcg Capsule 50 MCG PO DAILY, CAP Clopidogrel Bisulfate (Plavix) 75 Mg Tablet 75 MG PO DAILY, TAB Dapagliflozin Propanediol (Farxiga) 10 Mg Tablet 10 MG PO DAILY, TAB Duloxetine HCl (Duloxetine HCl) 30 Mg Capsule.dr 30 MG PO HS, CAP Gabapentin (Neurontin) 300 Mg Capsule 300 MG PO BID, CAP Glyburide (Glyburide) 5 Mg Tablet 5 MG PO BID WITH MEALS, TAB Hydrocodone/Acetaminophen (Hydrocodone-Acetamin 5-325 mg) 1 Each Tablet 1 TAB PO Q4H PRN for PAIN-MODERATE (5-7), TAB Isosorbide Mononitrate (Isosorbide Mononitrate ER) 60 Mg Tab 60 MG PO DAILY, TAB Linaclotide (Linzess) 72 Mcg Capsule 72 MCG PO DAILY PRN for CONSTIPATION, CAP Lisinopril (Lisinopril) 5 Mg Tablet 5 MG PO DAILY, TAB Metformin HCl (Metformin HCl) 1,000 Mg Tablet 1000 MG PO BID, TAB Metoprolol Succinate (Metoprolol Succinate) 100 Mg Tab.er.24h 100 MG PO DAILY, TAB Pantoprazole Sodium (Protonix) 40 Mg Tablet.dr 40 MG PO HS, TAB Rosuvastatin Calcium (Rosuvastatin Calcium) 20 Mg Tablet 20 MG PO HS, TAB Patient Instructions Patient Instructions: DO NOT TAKE METFORMIN TODAY OR TOMORROW - RESTART IT ON JANUARY 08 Please schedule follow up appointment to see Dr. Juarez in 2 weeks HALIMA DEVI Jan 06, 2022 08:06
[2022-01-06] MEDS ORDERED: EMPAGLIFLOZIN 10 MG TABLET (JARDIANCE) PO SCH (09:00)
[2022-01-06] MEDS ORDERED: CLOPIDOGREL 75 MG (PLAVIX) TABLET PO SCH (09:00)
[2022-01-06] MEDS ORDERED: NON-FORMULARY MEDICATION 1 EA EA (Dapagliflozin Propanediol (Farxiga) 10 MG) PO SCH (09:00)
[2022-01-06] MEDS ORDERED: ISOSORBIDE MONONITRATE 60 MG (IMDUR) TAB PO SCH (09:00)
[2022-01-06] MEDS ORDERED: ASPIRIN E.C. 81 MG (ECOTRIN) TAB PO SCH (09:00)
[2022-01-06] MEDS ORDERED: NON-FORMULARY MEDICATION 1 EA EA (Cholecalciferol (Vitamin D3) (Vitamin D3) 50 MCG) PO SCH (09:00)
[2022-01-06] MEDS ORDERED: meTOprolol SUCCINATE 100 MG (TOPROL XL) TAB PO SCH (09:00)
[2022-01-06] MEDS ORDERED: lisINopril 5 MG (PRINIVIL) TABLET PO SCH (09:00)
[2022-01-06] MEDS ORDERED: VITAMIN D3 25 MCG (1,000 UNITS) TABLET PO SCH (09:00)
--- NOTE | 2022-01-06 09:04 | Progress Note - Cardiology ---
Cardiology SOAP Progress Note Subjective: No cp or palp or syncope Chronic exertional shortness of breath No focal weakness No groin or leg discomfort Wishes to go home Objective: I&O/Vital Signs 01/06/22 01/06/22 01/06/22 01/06/22 00:00 01:00 04:20 07:00 Temp 36.3 Pulse 73 72 69 74 Resp 15 12 B/P (MAP) 131/77 (95) 139/81 (100) Pulse Ox 94 93 O2 Delivery Room Air Room Air 01/06/22 01/06/22 01/06/22 07:00 07:45 08:00 Temp 36.1 Pulse 73 69 72 Resp 12 15 B/P (MAP) 137/78 (97) 141/85 (103) Pulse Ox 93 95 O2 Delivery Room Air Room Air 01/06/22 00:00 Intake Total 500 ml Output Total 600 ml Balance -100 ml Weight (Pounds): 280 Weight (Ounces): 0.0 Weight (Calculated Kilograms): 127.493502 Condition: other (distal pulses palpable/Dopplerable) Device Insertion Site: without hematoma Bruising: mild bruising Constitutional: AAO x 3, well-developed, well-nourished Respiratory: No accessory muscle use; other (good, bilateral air entry) Cardiovascular: regular rate-rhythm, S1 and S2, systolic murmur (soft ALANNA at card base) Gastrointestional: No tender; soft; No guarding, No rebound; audible bowel sounds Extremities: No clubbing, No cyanosis, No significant edema Neurologic/Psychiatric: other (moves all limbs equally) Skin: No rash on exposed areas, No ulcerations on exposed areas Results/Procedures: Labs Laboratory Tests 01/05/22 19:39: Glucometer 197H 01/06/22 05:01: White Blood Count 7.8, Red Blood Count 5.62H, Hemoglobin 15.5, Hematocrit 48, Mean Corpuscular Volume 85, Mean Corpuscular Hemoglobin 28, Mean Corpuscular Hemoglobin Concent 33, Red Cell Distribution Width 14.7H, Platelet Count 183, Mean Platelet Volume 9.8, Immature Granulocyte % (Auto) 0, Neutrophils (%) (Auto) 69, Lymphocytes (%) (Auto) 22, Monocytes (%) (Auto) 7, Eosinophils (%) (Auto) 2, Basophils (%) (Auto) 1, Neutrophils # (Auto) 5.4, Lymphocytes # (Auto) 1.7, Monocytes # (Auto) 0.5, Eosinophils # (Auto) 0.2, Basophils # (Auto) 0.1, Immature Granulocyte # (Auto) 0.0, Sodium Level 137, Potassium Level 3.7, Chlo ride Level 104, Carbon Dioxide Level 20L, Anion Gap 13, Blood Urea Nitrogen 10, Creatinine 0.81, Estimat Glomerular Filtration Rate 98, BUN/Creatinine Ratio 12, Glucose Level 125H, Calcium Level 8.6 01/06/22 06:43: Glucometer 121H Microbiology 01/05/22 MRSA Screen - Final, Complete MRSA not isolated Laboratory Tests 01/05/22 07:24 01/06/22 05:01 A/P: Assessment: PAD - Peripheral angiogram of 01-05-22: Considerable disease of the distal peripheral arteries on both sides. The right leg has a 2-vessel runoff. The left leg has a 1-vessel runoff (peroneal) that was compromised by a 90% proximal stenosis to which successful balloon angioplasty was carried out with reduction of stenosis to less than 10% residual. CAD - Card cath of 08-11-21(to treat progressive angina): Multivessel coronary artery disease. A 90% mid left anterior descending artery was successfully stented with StarPoint 2.5 x 28 mm stent. The first and second diagonal branches of the left anterior descending artery have diffuse severe disease and are not amenable to intervention. The left circumflex artery is nondominant and has moderate to moderately severe diffuse disease and is not amenable to intervention. The right coronary artery is dominant. The posterior descending branch appears occluded at its ostium. The distal right coronary artery has approximately 70% to 80% stenosis. Left ventricular end-diastolic pressure is 16 mmHg. The ejection fraction appears to be at the lower limit of normal with ejection fraction of 45% to 50%. - Cardiac cath of 09-01-21: Successful stenting of the distal right coronary artery with Skypoint 2.5 x 12 mm stent. Distal posterolateral has moderate to moderately severe disease, but is of a small caliber and not amenable to intervention. Patent stent in the mid left anterior descending known to be 2.5 x 28 mm. Two diagonal branches exhibit diffuse severe disease and are not amenable to intervention because of small vessel caliber. The distal left anterior descending artery has diffuse moderate disease and is of a small caliber. Left circumflex is nondominant, small in caliber, and has diffuse moderate to moderately severe disease. SOB - Echocardiogram of 07-28-21 showed mild concentric hypertophy. LVEF 30-35%. LA midly dilated. Mitral valve annulus is mildly to mod calcified. PASP 30-35 mmHg. Unilateral leg swelling - left leg, undetermined etiology Abnormal ECG - NSR with LBBB on ECG of 07/20/21 Hypertension - controlled DM II - manged by PCP Hyperlipidemia - managed by PCP Obesity - with BMI approx 35 Plan: - Explained yesterday's findings and procedure - Advised continuation of DAPT - Advised close clinical f/u - Questions answered VIVEK KATZ MD FACP [facility] Jan 06, 2022 09:04
--- NOTE | 2022-01-06 09:04 | Discharge Inst-Cardiology ---
Discharge Inst-Cardiac Discharge Medications Continued Medications: Acetaminophen (Acetaminophen) 500 Mg Tablet 2000 MG PO Q8H PRN for PAIN-MILD, TAB Amlodipine Besylate (Norvasc) 5 Mg Tablet 5 MG PO HS, TAB Aspirin (Aspirin EC) 81 Mg Tablet.dr 81 MG PO DAILY, TAB Cholecalciferol (Vitamin D3) (Vitamin D3) 50 Mcg Capsule 50 MCG PO DAILY, CAP Clopidogrel Bisulfate (Plavix) 75 Mg Tablet 75 MG PO DAILY, TAB Dapagliflozin Propanediol (Farxiga) 10 Mg Tablet 10 MG PO DAILY, TAB Duloxetine HCl (Duloxetine HCl) 30 Mg Capsule.dr 30 MG PO HS, CAP Gabapentin (Neurontin) 300 Mg Capsule 300 MG PO BID, CAP Glyburide (Glyburide) 5 Mg Tablet 5 MG PO BID WITH MEALS, TAB Hydrocodone/Acetaminophen (Hydrocodone-Acetamin 5-325 mg) 1 Each Tablet 1 TAB PO Q4H PRN for PAIN-MODERATE (5-7), TAB Isosorbide Mononitrate (Isosorbide Mononitrate ER) 60 Mg Tab 60 MG PO DAILY, TAB Linaclotide (Linzess) 72 Mcg Capsule 72 MCG PO DAILY PRN for CONSTIPATION, CAP Lisinopril (Lisinopril) 5 Mg Tablet 5 MG PO DAILY, TAB Metformin HCl (Metformin HCl) 1,000 Mg Tablet 1000 MG PO BID, TAB Metoprolol Succinate (Metoprolol Succinate) 100 Mg Tab.er.24h 100 MG PO DAILY, TAB Pantoprazole Sodium (Protonix) 40 Mg Tablet.dr 40 MG PO HS, TAB Rosuvastatin Calcium (Rosuvastatin Calcium) 20 Mg Tablet 20 MG PO HS, TAB VIVEK KATZ MD FACP [facility] Jan 06, 2022 09:04
--- NOTE | 2022-01-06 09:05 | Discharge Inst-Post CATH ---
Discharge Inst-CATH/EP Post Cardiac Cath/EP D/C Inst Follow Up/Plan F/u with Dr Juarez in 2 weeks ACTIVITY * Go Home directly and rest. * Limit activity of the leg (or wrist if it was used) for 7 days including aerobics, swimming, jogging, bicycling, etc. * Restrict stair-climbing for 7 days if possible, if not, climb up with your n on-cath leg, then bring together on the same step. * Avoid lifting, pushing, pulling or excessive movement of the affected ex tremity for 7 days. * Customary sexual activity may be resumed after 2 days-use caution not to use a position that strains or causes pain to the affected extremity. * No driving for 24 hours. * NO SMOKING. * Avoid straining for bowel movements for 7 days. * Gentle walking on level ground is allowed. * Returning to work will depend on the type of procedure and the results. Your doctor will discuss this with you. CALL YOUR DOCTOR FOR ANY OF THE FOLLOWING: *If bleeding from the puncture site occurs- Apply gentle pressure to site with clean cloth and call your doctor or EMS. * If a knot or lump forms under the skin, increases in size, or causes pain. * If bruising appears to be worsening or moving further down your leg instead of disappearing. * Temperature above 101 F. CARE OF YOUR GROIN INCISION; * Bruising or purple discoloration of the skin near the puncture site is common. * You may shower only, no bathtub bathing for 5 days. Be careful to avoid slipping as your leg may feel stiff. * If a closure device was used on your femoral artery, please see the attached guide regarding care of the device and your leg. * Leave dressing on FOR 24 hours. CARE OF YOUR WRIST INCISION; * Bruising or purple discoloration of the skin near the puncture site is common. * You may shower. * DO NOT submerge wrist. * Leave dressing on FOR 24 hours. VIVEK JUAREZ MD FACP FAC CCDS Jan 06, 2022 09:05
[2022-01-06] MEDS: glyBURIDE 5 MG (MICRONASE) TAB PO SCH (09:15)
[2022-01-06] MEDS: GABAPENTIN 300 MG (NEURONTIN) CAP PO SCH (09:16)
== END 2022-01-06 11:10 | disposition home or self-care (01) ==
LOC: CATH 08:00 → CSD 10:58 → CATH 01-06 11:10
PROVIDERS: ATTEND Internal Medicine Cardiovascular Disease
DX: E11.51 Type 2 diabetes mellitus with diabetic peripheral angiopathy without gangrene (principal); I70.213 Atherosclerosis of native arteries of extremities with intermittent claudication, bilateral legs; I25.10 Atherosclerotic heart disease of native coronary artery without angina pectoris; I70.90 Unspecified atherosclerosis; I65.23 Occlusion and stenosis of bilateral carotid arteries; I10 Essential (primary) hypertension; E66.9 Obesity, unspecified; E78.2 Mixed hyperlipidemia; I25.5 Ischemic cardiomyopathy; R22.42 Localized swelling, mass and lump, left lower limb; Z68.35 Body mass index [BMI] 35.0-35.9, adult; Z79.899 Other long term (current) drug therapy; Z79.84 Long term (current) use of oral hypoglycemic drugs
CPT/HCPCS: 36247; 37228; 75625; 75716; 80048; 80053; 80061; 82947 ×2; 85025; 85027; 85610; 85730; 87081; C1725; C1760; C1769 ×3; C1887; C1894 ×3; 36415

== ENCOUNTER → 2022-02-04 | Outpatient (CLI) | payer MEDICAID ==
[~2022-02-04] MED LIST changes: -HEParin (CATH LAB) 2,000 ML IV ONE; -LIDOCAINE 1% INJ 50 ML (XYLOCAINE) VIAL ONE; -NS IV 1000 ML 1,000 ML IV SCH; -NS IV 1000 ML 1,000 ML ONE
== END ==
LOC: CARDFS 14:44
PROVIDERS: ATTEND Nurse Practitioner Family
DX: I08.0 Rheumatic disorders of both mitral and aortic valves (principal); I25.5 Ischemic cardiomyopathy
CPT/HCPCS: 93306

== ENCOUNTER → 2022-09-23 | Outpatient (CLI) | payer MEDICAID ==
[~2022-09-23] MED LIST changes: +CATHETER FLUSH 10 ML SYR IV PRN; +CLOP-31 PO; -CLOP75TA69 PO; +HOLD METFORMIN - RECEIVED CONTRAST 20 ML VIAL IV SCH; +IOHEXOL 350 MG/ML 100 ML (OMNIPAQUE 350) VIAL IV ONE; +NS 100 ML (IVPB) BAG IV ONE
[2022-09-23 13:06] LABS: CREATININE SERUM 0.87 MG/DL (0.60-1.30)
--- NOTE | 2022-09-23 14:07 | Diagnostic Imaging Report ---
PROCEDURE: CT abdomen and pelvis with contrast. TECHNIQUE: Multiple contiguous axial images were obtained through the abdomen and pelvis after administration of intravenous contrast. Auto Exposure Controls were utilized during the CT exam to meet ALARA standards for radiation dose reduction. All CT scans use one or more of the following dose optimizing techniques: Automated exposure control, MA and/or KvP adjustment based on patient size and exam type or iterative reconstruction. INDICATION: Generalized abdominal pain. FINDINGS: Lung bases are clear of acute infiltrates. There is a calcified granuloma in the right lower lobe. No discrete liver mass is detected. Gallbladder is surgically absent. No liver mass or biliary ductal dilatation is seen. The pancreas and spleen are unremarkable. No adrenal mass is detected. Kidneys contain cortical low-attenuation lesions consistent with cysts. These are similar to prior CT from 09/14/2021. No definite calculi or hydronephrosis is identified. The aorta does show some atherosclerotic calcifications but is nonaneurysmal. Bowel loops demonstrate diverticulosis of the descending and sigmoid colon. No definite findings of diverticulitis are identified. No free fluid or fluid collection is seen. Bladder and prostate are unremarkable. No abdominal or pelvic lymphadenopathy is seen. Evaluation of the bony structures demonstrates multilevel degenerative disc disease. There is grade 1 spondylolisthesis of L5 on S1 with bilateral pars defects. IMPRESSION: 1. Uncomplicated diverticulosis. 2. No acute feature within the abdomen or pelvis is identified. Dictated by: Dictated on workstation # [id number]
== END ==
LOC: LAB FS 12:28
PROVIDERS: ATTEND Surgery
DX: R10.9 Unspecified abdominal pain (principal)
CPT/HCPCS: 36415; 74177; 82565; 84520; Q9967

== ENCOUNTER 2022-10-05 05:24 | Outpatient (CLI) | payer MEDICAID ==
[~2022-10-05] VITALS: Ht 185.4 cm; Wt 116.6 kg
[~2022-10-05 05:24] MED LIST changes: -CATHETER FLUSH 10 ML SYR IV PRN; -HOLD METFORMIN - RECEIVED CONTRAST 20 ML VIAL IV SCH; -IOHEXOL 350 MG/ML 100 ML (OMNIPAQUE 350) VIAL IV ONE; -NS 100 ML (IVPB) BAG IV ONE
== END 2022-10-06 16:30 | disposition home or self-care (01) ==
LOC: PREOP 05:24
PROVIDERS: ATTEND Surgery
DX: Z01.818 Encounter for other preprocedural examination (principal)

== ENCOUNTER 2022-10-11 08:45 | Day surgery (SDC) | payer MEDICAID ==
[2022-10-11] VITALS (7 sets, daily range): BP systolic 145–160; BP diastolic 70–90
[~2022-10-11] VITALS: Ht 185.4 cm; Wt 116.6 kg
[2022-10-11] MEDS ORDERED: LACTATED RINGERS 1,000 ML IV STA (09:05)
[2022-10-11] MEDS ORDERED: HURRICAINE EXT TUBE (BENZOCAINE) XX PRN (09:15)
--- NOTE | 2022-10-11 09:35 | Progress Note-Pre Operative ---
Pre-Operative Progress Note Date of Available H&P: Sep 16, 2022 Date H&P Reviewed: Oct 11, 2022 Time H&P Reviewed: 09:32 History & Physical: H&P Reviewed, Patient Examed, No changes noted Pre-Operative Diagnosis: Abd pain, Screening colonoscopy NOHELIA TURPIN DO Oct 11, 2022 09:35
[2022-10-11] MEDS ORDERED: PROPOFOL INJECTION 50 ML IV ONE ×2 (10:23→10:49)
[2022-10-11] MEDS ORDERED: MIDAZOLAM 2 MG/2 ML (VERSED) VIAL ONE (10:23)
--- NOTE | 2022-10-11 11:35 | Progress Note-Post Operative ---
Post-Operative Progess Note Surgeon (s)/Gullet Slitter (s) Surgeon NOHELIA TURPIN DO Gullet Slitter: JORDAN Galicia Pre-Operative Diagnosis Abd pain, Screening colonoscopy Post-Operative Diagnosis Gastritis Hiatal hernia Esophagitis Gastric polyps Colon polyps diverticula int hemorrhoids Procedure & Operative Findings Date of Procedure 10/11/22 Procedure Performed/Findings EGD with bx EGD with snare polypectomy Colonoscopy with snare polypectomy Colonoscopy with hot bx Colonoscopy with tattoo Anesthesia Type IV sedation by WARP WORKER Estimated Blood Loss Estimated blood loss (mL): scant Specimens/Packing Specimens Removed antral bx body bx GE jxn bx Gastric polyp x 3 Desc colon polyp transverse colon polyp transverse colon bx desc colon polyp rectal polyp NOHELIA TURPIN DO Oct 11, 2022 11:35
--- NOTE | 2022-10-11 11:36 | Endoscopy Discharge Instruct ---
Endo Procedure/Findings Findings 1.: Polyp 2.: Hiatal Hernia, Gastritis 3.: Polyp 4.: Diverticulosis, Internal Hemorrhoids Discharge Instructions - Activity: You might feel a little sleepy until tomorrow. This is due to the medicine you received to relax you. Until tomorrow, you should: NOT drive a car, operate machinery or power tools. NOT drink any alcoholic beverages. NOT make any important decisions or sign importortant papers. Do not return to work until tomorrow, unless otherwise instructed. Resume previous activities tomorrow. Diet: Start by taking liquids. If you tolerate liquids, advance to solid food. 1.: EGD in 1 year 2.: Colonoscopy in 1 year Notify Physician - If you experience excessive bleeding, unusual abdominal pain, fever, or chest pain, contact your doctor immediately. NOHELIA TURPIN DO Oct 11, 2022 11:36
--- NOTE | 2022-10-11 11:47 | Anesthesia-General Post-Op ---
MAC Patient Condition Mental Status/LOC: Same as Preop Cardiovascular: Satisfactory Nausea/Vomiting: Absent Respiratory: Satisfactory Pain: Controlled Complications: Absent Post Op Complications Complications None Follow Up Care/Instructions Patient Instructions None needed. Anesthesiology Discharge Order Discharge Order Patient is doing well, no complaints, stable vital signs, no apparent adverse anesthesia problems. No complications reported per nursing. PATRICIA WORTHINGTON CRNA Oct 11, 2022 11:47
--- NOTE | 2022-10-11 22:13 | OPERATIVE REPORT ---
DATE OF SERVICE: 10/11/2022 PREOPERATIVE DIAGNOSES: 1. Abdominal pain. 2. Screening colonoscopy. POSTOPERATIVE DIAGNOSES: 1. Gastritis, hiatal hernia, esophagitis, gastric polyps. 2. Colon polyps, diverticula and internal hemorrhoids. PROCEDURE: 1. EGD with biopsy. 2. EGD with snare polypectomy. 3. Colonoscopy with snare polypectomy. 4. Colonoscopy with hot biopsy. 5. Colonoscopy with tattooing. SURGEON: Parker Turpin DO. OBIEE ARCHITECT: Kong Villarreal. ANESTHESIA: IV sedation by GAS APPLIANCE SERVICER. SPECIMEN: Antrum biopsy, body of stomach biopsy, GE junction biopsy, gastric polyp x3 as well as descending colon polyp, transverse colon polyp, transverse colon biopsy x2, and then a rectal polyp. BLOOD LOSS: Scant. FLUIDS:. Per anesthesia. POSTOPERATIVE CONDITION: Stable. INDICATIONS FOR PROCEDURE: The patient is a 67-year-old male who has some abdominal pain, sometimes feels like there is no obstruction and he has not had a colonoscopy over 10 years and needs screening colonoscopy. FINDINGS: The patient had multiple very large polyps in the stomach as well as some gastritis, a hiatal hernia and some esophagitis in the colon and found multiple polyps, large diverticula, internal hemorrhoids and then 1 polyp that was very flat and spread across and over a fold in the colon. DESCRIPTION OF PROCEDURE: After informed consent was obtained, the patient was brought to the endoscopy suite, placed on bed in left lateral decubitus position. He was administered IV sedation by the GAS APPLIANCE SERVICER. We then monitored his vital signs the entire time, heart rate, blood pressure, and pulse ox. We started with the EGD, placed the scope down the mouth through the esophagus, some mild esophagitis. We took a picture of this portion of the stomach, saw very inflamed stomach with lots of large polyps, pushed towards the antrum and then into duodenum. Duodenum looked good. Took a picture, pulled back, saw some mild gastritis, did a biopsy of this and then did a biopsy of the body of stomach, retroflexed the scope, saw hiatal hernia. Took a picture of this and then elected to remove some of these large gastric polyps, used a snare polypectomy, placed a snare down with heat and removed three of these polyps. I then had to use the a Reese Net to pull out to grab the two of polyps and then I did pull the scope all the way out to remove this, put the scope back in to grab the next polyp, pulled the scope all the way out and then pushed it back into the stomach. Took a picture, did not see any other obvious pathology and at this point, then suctioned out all the air and then removed the scope up the esophagus and out of the mouth. Switched to camera, switched gloves, went down below, started the colonoscopy. On the way in noted a polyp in the descending colon and did a snare polypectomy. This continued and then that was in the descending colon and then we got to the transverse colon, so another polyp, did another snare polypectomy and then found a very large flat polyp. I took a picture of this. It went over the fold. This will be too big to get and was too flat. We elected to do some tattooing, did some tattooing, then went past this all the way to the cecum and took a picture of the appendiceal orifice. Noted the ileocecal valve, slowly withdrew the scope, insufflated and looked circumferential castellanos, looked at the cecum of the ascending colon to the hepatic flexure, then down the transverse colon where I elected to then do biopsies of this flat transverse polyp. I tattooed in front of the polyp towards the distal area and then next to it as well. We then continued to come out down to the splenic flexure into the descending colon and throughout the descending colon, I saw a large diverticula. I took pictures of then and down into the sigmoid and finally into the rectum. In the descending colon, I saw a polyp through the snare polypectomy and then in the rectum, I saw another hot polyp. I took a picture of this and then did a snare polypectomy and then I retroflexed the scope. Saw some internal hemorrhoids and took a picture of this. At this point, I then removed the scope. The patient tolerated the procedure. Removed the scope. The patient tolerated the procedure. He was recovered in the endoscopy suite. Job ID: [id number] DocumentID: [id number] Dictated Date: 10/11/2022 13:12:26 Education Dean Date: 10/11/2022 22:11:00 Dictated By: PARKER TURPIN DO
== END 2022-10-11 12:15 | disposition home or self-care (01) ==
LOC: ENDO 08:45
PROVIDERS: ATTEND Surgery
DX: D12.3 Benign neoplasm of transverse colon (principal); D12.4 Benign neoplasm of descending colon; K31.7 Polyp of stomach and duodenum; E66.9 Obesity, unspecified; K44.9 Diaphragmatic hernia without obstruction or gangrene; K57.30 Diverticulosis of large intestine without perforation or abscess without bleeding; K29.70 Gastritis, unspecified, without bleeding; K64.8 Other hemorrhoids; K62.1 Rectal polyp; K20.90 Esophagitis, unspecified without bleeding; Z68.33 Body mass index [BMI] 33.0-33.9, adult
CPT/HCPCS: 82947; 88305

== ENCOUNTER → 2022-11-26 | Outpatient (CLI) | payer MEDICAID ==
--- NOTE | 2022-11-26 16:07 | Diagnostic Imaging Report ---
PROCEDURE: MR imaging of the brain without contrast. TECHNIQUE: Multiplanar, multisequence MR imaging of the brain was performed without contrast. INDICATION: Dizziness. Lightheadedness. COMPARISON: none FINDINGS: No acute ischemia, mass, or hemorrhage. Scattered T2 hyperintense signal seen in the periventricular and subcortical white matter. The ventricles, cortical sulci, and basilar cisterns are symmetric and unremarkable. There is flattening of the pituitary with mildly expanded sella. The brainstem and posterior fossa are unremarkable. Small mucous retention cysts are seen in the maxillary sinuses. The mastoid air cells demonstrate normal signal characteristics. The globes and orbits are symmetric and unremarkable. The scalp and calvarium have a normal appearance. IMPRESSION: 1. No acute ischemia, mass, or hemorrhage. 2. Scattered T2 hyperintense signal in the periventricular and subcortical white matter. Findings may represent sequelae of migraine and/or chronic microvascular disease. 3. Flattening of the pituitary with mildly expanded sella. Findings are nonspecific and can be a normal anatomic variant. Dictated by: Dictated on workstation # [id number]
== END ==
LOC: RAD 13:58
PROVIDERS: ATTEND Family Medicine
DX: R42 Dizziness and giddiness (principal); R41.89 Other symptoms and signs involving cognitive functions and awareness; R51.9 Headache, unspecified
CPT/HCPCS: 70551

== ENCOUNTER → 2023-02-01 | Outpatient (CLI) | payer MEDICAID ==
[~2023-02-01] VITALS: Ht 185 cm; Wt 115.0 kg
[~2023-02-01] MED LIST changes: +CATHETER FLUSH 10 ML SYR IVP PRN; +REGADENOSON 0.4 MG/5 ML SYR (LEXISCAN) IV ONE
[2023-02-01 13:01] VITALS: BP 139/76
--- NOTE | 2023-02-01 20:27 | STRESS TEST ---
DATE OF SERVICE: 02/01/2023 RESTING AND POST REGADENOSON TECHNETIUM-99M TETROFOSMIN SPECT CT IMAGING ORDERING PHYSICIAN: Milli Oliver APRN. CLINICAL DIAGNOSIS: Chest discomfort. Baseline images were carried out after injection of 11 mCi of technetium-99m tetrofosmin. This was followed by 0.4 mg regadenoson and 30.3 mCi of technetium-99m tetrofosmin for stress imaging. The electrocardiogram showed sinus rhythm at baseline. There was left bundle branch block. The electrocardiogram did not change significantly with regadenoson infusion. The patient tolerated the procedure well. Review of images at rest and following stress indicate an inferior perfusion defect, which is predominantly transient. Gated images show impairment of global left ventricular systolic function. There appears to be some degree of global hypokinesis and there is basal inferior hypokinesis to akinesis. Left ventricular ejection fraction is calculated to be 29%. Left ventricular end-diastolic volume is 191 mL. CONCLUSIONS: 1. The study is indicative of considerable inferior wall ischemia (SDS 8). 2. Global hypokinesis and inferior wall hypokinesis to akinesis. 3. Impairment of global left ventricular systolic function with a calculated ejection fraction 29%. 4. Marked cardiomegaly. Job ID: [id number] DocumentID: [id number] Dictated Date: 02/01/2023 16:24:13 Carbon Brush Maker Date: 02/01/2023 20:26:00 Dictated By: VIVEK KATZ MD; ALICIA; FACP; FACC; MTDD
== END ==
LOC: CARD 10:45
PROVIDERS: ATTEND Nurse Practitioner Family
DX: R07.89 Other chest pain (principal)
CPT/HCPCS: 78452; 93017; A9502

== ENCOUNTER 2023-02-08 09:00 | Day surgery (SDC) | payer MEDICAID ==
[~2023-02-08] VITALS: Ht 185.4 cm; Wt 117.9 kg
[2023-02-08] VITALS (9 sets, daily range): BP systolic 102–148; BP diastolic 60–91
[2023-02-08 07:24] LABS: HEMATOCRIT 51 % (40-54); HEMOGLOBIN 17.2 g/dL (13.3-17.7); MEAN CORPUSCULAR HEMOGLOBIN 29 pg (25-34); MEAN CORPUSCULAR HGB CONC 34 g/dL (32-36); MEAN CORPUSCULAR VOLUME 87 fL (80-99); MEAN PLATELET VOLUME 9.4 fL (9.0-12.2); PLATELET COUNT 232 10^3/uL (130-400); WHITE BLOOD COUNT 8.3 10^3/uL (4.3-11.0)
[2023-02-08 07:34] LABS: INR 0.9 (0.8-1.4); PROTHROMBIN TIME PATIENT 12.4 SEC (12.2-14.7)
[2023-02-08 07:44] LABS: ALBUMIN 4.3 GM/DL (3.2-4.5); BILIRUBIN,TOTAL 0.5 MG/DL (0.1-1.0); CALCIUM 9.3 MG/DL (8.5-10.1); CREATININE SERUM 1.02 MG/DL (0.60-1.30); POTASSIUM 4.1 MMOL/L (3.6-5.0); TOTAL PROTEIN 7.3 GM/DL (6.4-8.2)
[~2023-02-08 09:00] MED LIST changes: +ACET325T38 PO; -CATHETER FLUSH 10 ML SYR IVP PRN; +HEParin (CATH LAB) 2,000 ML IV ONE; +HEParin 1000 UNIT/ML (10ML VIAL) FOR BOLUS ONE; +LIDOCAINE 1% INJ 20 ML VIAL ONE; +MIDAZOLAM 5 MG/5 ML (VERSED) VIAL ONE; +MULT-1030 PO; +NITRO DRIP 25000 MCG/D5W 250 ML IV ONE; +NS IV 1000 ML 1,000 ML IV SCH; +NS IV 1000 ML 1,000 ML ONE; +RANO10005 PO; -REGADENOSON 0.4 MG/5 ML SYR (LEXISCAN) IV ONE; +TRM50T PO; +VERAPAMIL 5 MG/2 ML (CALAN) VIAL IV ONE; +fentaNYL INJ 100 MCG/2 ML AMP ONE
--- NOTE | 2023-02-08 09:28 | Cardiac Procedure Note-CS/ASA ---
Pre-Procedure Note Pre-Op Procedure Note Date of Available H&P: Dec 30, 2022 Date H&P Reviewed: February 08, 2023 Time H&P Reviewed: 08:50 History & Physical: H&P Reviewed, No changes noted Moderate Sedation PreProcedure ASA Score 3 Airway Lungs Heart ASA score ASA 1: a normal healthy patient ASA 2: a patient with a mild systemic disease (mid diabetes, controlled hypertension, obesity ASA 3: a patient with a severe systemic disease that limits activity (angina, COPD, prior Myocardial infarction) ASA 4: a patient with an incapacitating disease that is a constant threat to life (CHF, renal failure) ASA 5: a moribund patient not expected to survive 24 hrs. (ruptured aneurysm) ASA 6: a declared brain- patient whose organs are being harvested. For emergent operations, add the letter E after the classification Mallampati Classification Grade 2 Sedation Plan Analgesia, Amnesia, Plan communicated to team members The patient is an appropriate candidate to undergo the planned procedure, sedation, and anesthesia. The patient immediately re-assessed prior to indication. VIVEK KATZ MD FACP FAC CCDS February 08, 2023 09:28
--- NOTE | 2023-02-08 09:38 | Cardiac Cath Report ---
CARDIAC CATHETERIZATION DATE OF PROCEDURE: 02-08-23 INDICATION: CAD, chest discomfort HISTORY: The patient is a 67 year old male with known CAD and exertional chest discomfort PROCEDURES PERFORMED: 1. Cor angio; 2. LHC PROCEDURE DESCRIPTION: After informed consent and in the fasting state, left heart catheterization was performed through the R radial artery utilizing a 6 Divehi system by percutaneous approach. 6F TIG for L cors and for LHC. 5F JR4 for R cor. All catheters were exchanged over a guidewire. HEMODYNAMICS: LVEDP 20 mmHg, no significant pressure gradient on pullback across the aortic valve CORONARY ANGIOGRAPHY: Left main coronary artery: Ok Left anterior descending coronary artery: patent mid-vessel stent (2.5 x 28 MELONY, placed 08-11-21) and diffuse moderate to moderately severe disease of the small caliber distal LAD and prox and mid portions of small caliber diags Left circumflex coronary artery: Diffuse moderate to moderate severe disease of a small caliber, nondominant vessel, including its OM branches Right coronary artery: Dominant with patent stent (2.5 x 12, placed 09-01-21) in the distal vessel, distal posterolateral with moderate to moderately severe proximal and mid vessel disease (tortuous vessel) LV angiogram: Global mild to mod hypokinesis. LVEF 40-45% IMPRESSION: 1. Multivessel CAD as detail above: patent stents in mid LAD and distal RCA; mod to mod severe distal disease of all vessel, not significantly changed from the study carried out in 2020 2. LVEDP 20 mmHg 3. Mild to mod global hypokinesis. LVEF 40-45% PLAN Continue medical therapy VIVEK KATZ MD [facility] February 08, 2023 09:38
[2023-02-08] MEDS ORDERED: LISI5TAB20 PO (09:41)
--- NOTE | 2023-02-08 09:42 | Discharge Inst-Cardiology ---
Discharge Inst-Cardiac Discharge Medications New Medications: Lisinopril (Lisinopril) 5 Mg Tablet 5 MG PO DAILY for 30 Days, #30 TAB 5 Refills Continued Medications: Acetaminophen (Tylenol) 325 Mg Tablet 650 MG PO Q6H PRN for PAIN-MILD (1-4), TAB Amlodipine Besylate (Norvasc) 5 Mg Tablet 5 MG PO HS, TAB Aspirin (Aspirin EC) 81 Mg Tablet.dr 81 MG PO BID, TAB Clopidogrel Bisulfate (Clopidogrel) 75 Mg Tablet 75 MG PO DAILY, TAB Dapagliflozin Propanediol (Farxiga) 10 Mg Tablet 10 MG PO DAILY, TAB Glyburide (Glyburide) 5 Mg Tablet 5 MG PO BID WITH MEALS, TAB Isosorbide Mononitrate (Isosorbide Mononitrate ER) 60 Mg Tab 60 MG PO DAILY, TAB Metoprolol Succinate (Metoprolol Succinate) 100 Mg Tab.er.24h 100 MG PO DAILY, TAB Multivits,Ca,Min/Iron/FA/Lycop (Centrum Men's Tablet) 8 Mg Iron-200 Mcg-600 Mcg Tablet 1 EACH PO DAILY, TAB Pantoprazole Sodium (Protonix) 40 Mg Tablet.dr 40 MG PO DAILY, TAB Ranolazine (Ranolazine ER) 1,000 Mg Tab.er.12h 1000 MG PO BID, TAB Rosuvastatin Calcium (Rosuvastatin Calcium) 20 Mg Tablet 20 MG PO HS, TAB Tramadol HCl (Tramadol HCl) 50 Mg Tablet 100 MG PO TID PRN for PAIN-MODERATE (5-7), TAB TAKES 2 (50MG) TABLETS Discontinued Medications: Metformin HCl (Metformin HCl) 1,000 Mg Tablet 1000 MG PO BID, TAB Patient Instructions Patient Instructions: Hold METFORMIN until the morning of 02/11/27, then resume previous home dose VIVEK KATZ MD [facility] CCDS February 08, 2023 09:42
--- NOTE | 2023-02-08 09:43 | Discharge Inst-Post CATH ---
Discharge Inst-CATH/EP Post Cardiac Cath/EP D/C Inst F/u with Dr Juarez in 1-2 weeks ACTIVITY * Go Home directly and rest. * Limit activity of the leg (or wrist if it was used) for 7 days including aerobics, swimming, jogging, bicycling, etc. * Restrict stair-climbing for 7 days if possible, if not, climb up with your non-cath leg, then bring together on the same step. * Avoid lifting, pushing, pulling or excessive movement of the affected extremity for 7 days. * Customary sexual activity may be resumed after 2 days-use caution not to use a position that strains or causes pain to the affected extremity. * No driving for 24 hours. * NO SMOKING. * Avoid straining for bowel movements for 7 days. * Gentle walking on level ground is allowed. * Returning to work will depend on the type of procedure and the results. Your doctor will discuss this with you. CALL YOUR DOCTOR FOR ANY OF THE FOLLOWING: *If bleeding from the puncture site occurs- Apply gentle pressure to site with clean cloth and call your doctor or EMS. * If a knot or lump forms under the skin, increases in size, or causes pain. * If bruising appears to be worsening or moving further down your leg instead of disappearing. * Temperature above 101 F. CARE OF YOUR GROIN INCISION; * Bruising or purple discoloration of the skin near the puncture site is common. * You may shower only, no bathtub bathing for 5 days. Be careful to avoid slipping as your leg may feel stiff. * If a closure device was used on your femoral artery, please see the attached guide regarding care of the device and your leg. * Leave dressing on FOR 24 hours. CARE OF YOUR WRIST INCISION; * Bruising or purple discoloration of the skin near the puncture site is common. * You may shower. * DO NOT submerge wrist. * Leave dressing on FOR 24 hours. VIVEK JUAREZ MD [facility] CCDS February 08, 2023 09:43
[2023-02-08] MEDS ORDERED: NS IV 1000 ML 1,000 ML IV SCH (09:45)
[2023-02-08] MEDS ORDERED: PATIENT MAY USE OWN MEDS, ALL PO SCH (09:45)
== END 2023-02-08 12:15 | disposition home or self-care (01) ==
LOC: CATH 09:00 → SDC 09:52 → CATH 12:15
PROVIDERS: ATTEND Internal Medicine Cardiovascular Disease
DX: I25.10 Atherosclerotic heart disease of native coronary artery without angina pectoris (principal); Z95.5 Presence of coronary angioplasty implant and graft
CPT/HCPCS: 80053; 80061; 85027; 85610; 85730; 87081; 93005; 93458; C1894; 36415

== ENCOUNTER 2023-03-30 05:31 | Outpatient (CLI) | payer MEDICAID ==
[~2023-03-30] VITALS: Ht 185.4 cm; Wt 117.9 kg
[~2023-03-30 05:31] MED LIST changes: -HEParin (CATH LAB) 2,000 ML IV ONE; -HEParin 1000 UNIT/ML (10ML VIAL) FOR BOLUS ONE; -LIDOCAINE 1% INJ 20 ML VIAL ONE; -MIDAZOLAM 5 MG/5 ML (VERSED) VIAL ONE; -NITRO DRIP 25000 MCG/D5W 250 ML IV ONE; -NS IV 1000 ML 1,000 ML IV SCH; -NS IV 1000 ML 1,000 ML ONE; -ROSU20TA32 PO; +ROSU20TA73 PO; -VERAPAMIL 5 MG/2 ML (CALAN) VIAL IV ONE; -fentaNYL INJ 100 MCG/2 ML AMP ONE
[2023-03-30] MEDS ORDERED: NEOM500T12 PO (09:25)
[2023-03-30] MEDS ORDERED: METF-399 PO (09:41)
== END 2023-03-30 09:50 ==
LOC: PREOP 05:31
PROVIDERS: ATTEND Surgery
DX: Z01.818 Encounter for other preprocedural examination (principal)

== ENCOUNTER 2023-04-06 06:47 | Inpatient (IN) | payer MEDICAID ==
[2023-04-06] VITALS (12 sets, daily range): BP systolic 120–174; BP diastolic 72–91
[~2023-04-06] VITALS: Ht 185.4 cm; Wt 117.9 kg
[~2023-04-06 06:47] MED LIST changes: +NEOM500T12 PO
[2023-04-06] MEDS ORDERED: metroNIDAZOLE 500MG/100ML IVPB 100 ML IV ONE (07:00)
[2023-04-06] MEDS ORDERED: ceFAZolin INJECTION 2,000 MG in NS (IVPB) 50 ML 50 ML IV ONE (07:00)
[2023-04-06] MEDS: LACTATED RINGERS 1,000 ML IV PRN ×2 (07:17→09:20)
[2023-04-06] MEDS ORDERED: LIDOCAINE/EPI 1%-1:100,000 (XYLOCAINE) 20ML ONE (07:57)
[2023-04-06] MEDS ORDERED: FAMOTIDINE 20MG/2ML IV (PEPCID) ONE (08:06)
[2023-04-06] MEDS ORDERED: ONDANSETRON 4 MG/2 ML (SDV) Z0FRAN ONE ×2 (08:06→08:38)
[2023-04-06] MEDS ORDERED: FAMOTIDINE 20MG/2ML IV (PEPCID) IV ONE (08:15)
[2023-04-06] MEDS ORDERED: ONDANSETRON 4 MG/2 ML (SDV) Z0FRAN IV ONE (08:15)
[2023-04-06] MEDS ORDERED: LIDOCAINE PF 2% 5 ML (XYLOCAINE) VIAL ONE (08:38)
[2023-04-06] MEDS ORDERED: SEVOFLURANE (ULTANE) 15 ML INHAL SOLN ONE ×2 (08:38→10:59)
[2023-04-06] MEDS ORDERED: MIDAZOLAM 2 MG/2 ML (VERSED) VIAL ONE (08:38)
[2023-04-06] MEDS ORDERED: fentaNYL INJ 100 MCG/2 ML AMP ONE (08:38)
[2023-04-06] MEDS ORDERED: proPOfol 200 MG/20 ML (DIPRIVAN) VIAL IV ONE (08:38)
--- NOTE | 2023-04-06 08:52 | Progress Note-Pre Operative ---
Pre-Operative Progress Note Date H&P Reviewed: Apr 06, 2023 Time H&P Reviewed: 08:44 History & Physical: H&P Reviewed, Patient Examed, No changes noted Pre-Operative Diagnosis: transverse colon mass NOHELIA TURPIN DO Apr 06, 2023 08:52
[2023-04-06] MEDS ORDERED: GLYCOPYRROLATE 0.2 MG/ML (ROBINUL) 2 ML VIAL ONE (10:38)
[2023-04-06] MEDS ORDERED: NEOSTIGMINE 3 MG/3 ML VIAL ONE (10:38)
[2023-04-06] MEDS ORDERED: SUGAMMADEX 500 MG/5 ML VIAL (BRIDION) IV ONE (10:46)
--- NOTE | 2023-04-06 10:55 | Anesthesia-General Post-Op ---
General Patient Condition Mental Status/LOC: Same as Preop Cardiovascular: Satisfactory Nausea/Vomiting: Absent Respiratory: Satisfactory Pain: Controlled Complications: Absent Post Op Complications Complications None Follow Up Care/Instructions Patient Instructions None needed. Anesthesia/Patient Condition Patient Condition Patient is doing well, no complaints, stable vital signs, no apparent adverse anesthesia problems. No complications reported per nursing. VIDHYA CHERY CENTRIFUGAL CHILLER TECHNICIAN Apr 06, 2023 10:55
[2023-04-06] MEDS ORDERED: HYDROmorphone 2 MG/ML VIAL (DILAUDID) ONE (10:58)
[2023-04-06] MEDS ORDERED: ROCURONIUM 50 MG/5 ML (ZEMURON) VIAL IV ONE (10:59)
[2023-04-06] MEDS ORDERED: ONDANSETRON 4 MG/2 ML (SDV) Z0FRAN IVP PRN ×2 (11:00→11:30)
[2023-04-06] MEDS ORDERED: MEPERIDINE (DEMEROL) INJ 50 MG/ML IVP ONE (11:00)
[2023-04-06] MEDS ORDERED: morphine INJ 10 MG/ML 1ML (SYR OR VIAL) IVP ONE (11:00)
[2023-04-06] MEDS ORDERED: fentaNYL INJ 100 MCG/2 ML AMP IVP ONE (11:00)
[2023-04-06] MEDS ORDERED: HYDROmorphone 2 MG/ML VIAL (DILAUDID) IV ONE (11:00)
--- NOTE | 2023-04-06 11:29 | Progress Note-Post Operative ---
Post-Operative Progess Note Surgeon (s)/Fiscal Assistant (s) Surgeon NOHELIA TURPIN DO Fiscal Assistant: [place] Pre-Operative Diagnosis transverse colon mass Post-Operative Diagnosis same pending path Procedure & Operative Findings Date of Procedure 04/06/23 Procedure Performed/Findings Transverse Colon resection Anesthesia Type GET Estimated Blood Loss Estimated blood loss (mL): less than 20ml Specimens/Packing Specimens Removed transverse colon NOHELIA TURPIN DO Apr 06, 2023 11:29
[2023-04-06] MEDS ORDERED: morphine INJ 4 MG/ML 1 ML (VIAL/SYRINGE) IVP PRN (11:30)
[2023-04-06] MEDS: LACTATED RINGERS 1,000 ML IV SCH ×2 (12:31→21:49)
[2023-04-06] MEDS: ACETAMINOPHEN 500 MG TABLET PO SCH ×2 (12:36→20:44)
[2023-04-06] MEDS: KETOROLAC 30 MG/ML VIAL IVP SCH ×2 (12:36→18:19)
[2023-04-06] MEDS: ceFAZolin INJECTION 2,000 MG in NS (IVPB) 50 ML 50 ML IV SCH (17:10)
[2023-04-06] MEDS: metroNIDAZOLE 500MG/100ML IVPB 100 ML IV SCH (17:47)
[2023-04-06] MEDS: HYPOCHLOROUS ACID/NaCl (VASHE) 250 ML IR SCH (18:44)
--- NOTE | 2023-04-06 20:30 | OPERATIVE REPORT ---
DATE OF SERVICE: 04/06/2023 PREOPERATIVE DIAGNOSIS: Transverse colon mass. POSTOPERATIVE DIAGNOSIS: Transverse colon mass, pending pathology. PROCEDURE: Transverse colon resection, open. SURGEON: Parker Rodriguez DO PRINTING MACHINIST: Dr. Martinez. ANESTHESIA: General endotracheal tube. SPECIMENS: A portion of transverse colon as well as donor. BLOOD LOSS: Less than 20 mL FLUIDS: Per anesthesia. POSTOPERATIVE CONDITION: Stable. INDICATIONS FOR PROCEDURE: The patient is a 67-year-old male who had a transverse colon, large polyp, was adenomatous polyp, unable to remove with the colonoscopy, needed to get this removed before turning into cancer. FINDINGS: Able to find this polyp, resect the portion of transverse colon, sent to pathology. DESCRIPTION OF PROCEDURE: After informed consent was obtained, the patient was brought to the operating room and placed on the table in supine position. He was sterilely prepped and draped in normal fashion. I started with a midline incision above the umbilicus, made an incision with #15 blade, carried down through skin into subcutaneous tissue, then deepened down to subcutaneous tissue. Bovie electrocautery down to the fascia. Fascia incised with electrocautery and bluntly entered the abdomen, swept a finger around then increased the incision superiorly and inferiorly to make about an 8-10 cm incision, able to then grasp the omentum, pulled this up and found the area of tattooing. It was very hard to feel the polyp on the inside, so I actually elected to open the colon going through the tinea, did not encounter any fecal material or even liquid or solid, able to see the polyp, was right next to the tattooing. At this point, closed this up with a 3-0 Vicryl running suture and then freed the omentum off of the transverse colon with Bovie electrocautery as well as with the LigaSure going proximally and distally to this area to make the defect in the mesentery and then coming across the colon with the [id number], clamping proximally, transected and then clamping distally and transecting and then coming across the mesentery with the LigaSure in a stepwise fashion, taking this portion off, elected to perform an end-to-end anastomosis, placed a pursestring applicator across the proximal portion and then cut this. The staple line off, placed the 33 anvil into this proximal portion of the colon and then tied the pursestring down. This likely happened. This was in there nicely then went to the distal portion, went down about 7 or 8 cm, made another defect in the tinea and then brought the 33 stapler through, brought this out through the end of the staple line, brought the trocar out in staple line and then hooked the trocar up to the anvil and then tightened this down, held for 30 seconds and then fired and then released. This release nicely. Then elected to close the colotomy that we had made for the EEA stapler closing in 2 layers, closing the muscular and mucosal layer with 3-0 Vicryl running suture, then closed the serosal layer with another 3-0 Vicryl running suture. This was very nice. Then copiously irrigated this area with normal saline and actually delivered all of this out through the midline incision, so we did this all opened. The staple line appeared good, good donuts from the EEA stapler. At this point, we then dropped this back, covered it with omentum to cover the spot at the anastomosis and the colotomy closure and then we closed the midline incision with a #1 double stranded PDS suture running from the superior portion of the inferior portion tying to itself. Copiously irrigated the incision with normal saline and then closed the skin with weston. Area was cleaned and dried dressing placed. The patient tolerated the procedure. Sponge and needle count correct at the end of the case. Dr. Martinez assisted in this case, able to make incisions, close incisions, identify anatomy, hold anatomy out away. Patient transferred to recovery room in stable condition. Job ID: [id number] DocumentID: [id number] Dictated Date: 04/06/2023 13:40:38 Commissary Steward Date: 04/06/2023 20:29:00 Dictated By: PARKER RODRIGUEZ DO
[2023-04-07] MEDS: KETOROLAC 30 MG/ML VIAL IVP SCH ×5 (00:04→23:41)
[2023-04-07] MEDS: ceFAZolin INJECTION 2,000 MG in NS (IVPB) 50 ML 50 ML IV SCH (00:04)
[2023-04-07] MEDS: metroNIDAZOLE 500MG/100ML IVPB 100 ML IV SCH (01:01)
[2023-04-07] MEDS: LACTATED RINGERS 1,000 ML IV SCH ×3 (03:35→21:19)
[2023-04-07] MEDS: ACETAMINOPHEN 500 MG TABLET PO SCH ×3 (03:43→19:48)
[2023-04-07 03:48] VITALS: BP 145/67
[2023-04-07] MEDS: HYPOCHLOROUS ACID/NaCl (VASHE) 250 ML IR SCH ×3 (05:59→19:55)
[2023-04-07 08:02] VITALS: BP 136/72
[2023-04-07] MEDS: PANTOPRAZOLE 40 MG (PROTONIX) VIAL IVP SCH (08:27)
[2023-04-07] MEDS ORDERED: AMOX1TAB12 PO (10:55)
[2023-04-07 12:01] VITALS: BP 159/80
[2023-04-07] MEDS: ENOXAPARIN 40 MG/0.4 ML (LOVENOX) SYR SC SCH (12:29)
--- NOTE | 2023-04-07 13:15 | Anesthesia-General Post-Op ---
General Patient Condition Mental Status/LOC: Same as Preop Cardiovascular: Satisfactory Nausea/Vomiting: Absent Respiratory: Satisfactory Pain: Controlled Complications: Absent Post Op Complications Complications None Follow Up Care/Instructions Patient Instructions None needed. Anesthesia/Patient Condition Patient Condition Patient is doing well, no complaints, stable vital signs, no apparent adverse anesthesia problems. No complications reported per nursing. RUBIO COPELAND CRNA Apr 07, 2023 13:15
--- NOTE | 2023-04-07 13:45 | Progress Note - Surgery ---
Subjective Time Seen by a Provider: 10:51 Subjective/Events-last exam Pt seen and examined, states he has moderate abdominal pain and thinks he is a little bloated. He thinks he has passed a little bit of gas, but no BM. Tolerating clears. Review of Systems Pulmonary: No Dyspnea, No Cough Cardiovascular: No: Chest Pain, Palpitations Gastrointestinal: Abdominal Pain; No: Nausea, Vomiting Objective Exam Vital Signs Date Time Temp Pulse Resp B/P (MAP) Pulse Ox O2 Delivery O2 Flow Rate FiO2 04/07/23 12:01 36.2 73 20 159/80 (106) 96 Room Air 04/07/23 08:30 Room Air 04/07/23 08:02 36.0 66 18 136/72 (93) 95 Room Air 04/07/23 03:48 36.6 65 18 145/67 (93) 94 Room Air 04/06/23 23:40 36.5 71 16 129/76 (93) 94 Room Air 04/06/23 20:45 95 Room Air 04/06/23 19:52 36.8 82 18 137/76 (96) 95 Room Air 04/06/23 19:09 Room Air 04/06/23 16:18 36.6 76 18 120/75 (90) 95 Nasal Cannula 3.00 I & O 04/07/23 07:00 Intake Total 4180 ml Output Total 810 ml Balance 3370 ml Capillary Refill : Less Than 3 Seconds General Appearance: No Apparent Distress, Obese Respiratory: Lungs Clear, Normal Breath Sounds, No Accessory Muscle Use, No Respiratory Distress Cardiovascular: Regular Rate, Rhythm Gastrointestinal: soft, tenderness (mostly at incision), other (incision c/d/i) Results Lab Microbiology 04/06/23 MRSA Screen - Final, Complete MRSA not isolated Assessment/Plan Assessment/Plan Assessment/Plan S/P Colectomy Encourage ambulation and IS use. Continue on clears, arik vergara d/c'd. Will check labs tomorrow. NOHELIA TURPIN DO Apr 07, 2023 13:45
[2023-04-07 15:51] VITALS: BP 147/84
[2023-04-07 19:43] VITALS: BP 133/75
[2023-04-07 23:43] VITALS: BP 127/69
[2023-04-08] MEDS: ACETAMINOPHEN 500 MG TABLET PO SCH ×3 (04:28→21:01)
[2023-04-08 04:29] VITALS: BP 133/66
[2023-04-08] MEDS: KETOROLAC 30 MG/ML VIAL IVP SCH ×3 (05:34→18:40)
[2023-04-08 07:08] VITALS: BP 144/76
[2023-04-08] MEDS: PANTOPRAZOLE 40 MG (PROTONIX) VIAL IVP SCH (08:13)
[2023-04-08 08:24] LABS: EOSINOPHILS # (AUTO) 0.2 10^3/uL (0.0-0.3); EOSINOPHILS % (AUTO) 3 % (0-10); LYMPHOCYTES # (AUTO) 1.2 10^3/uL (1.0-4.0)
[2023-04-08 08:26] LABS: BASOPHILS % (AUTO) 0 % (0-10); HEMATOCRIT 40 % (40-54); HEMOGLOBIN 13.3 g/dL (13.3-17.7); LYMPHOCYTES % (AUTO) 20 % (12-44); MEAN CORPUSCULAR HEMOGLOBIN 29 pg (25-34); MEAN CORPUSCULAR HGB CONC 34 g/dL (32-36); MEAN CORPUSCULAR VOLUME 87 fL (80-99); MEAN PLATELET VOLUME 10.1 fL (9.0-12.2); MONOCYTES # (AUTO) 0.5 10^3/uL (0.0-1.0); MONOCYTES % (AUTO) 8 % (0-12); NEUTROPHILS # (AUTO) 4.2 10^3/uL (1.8-7.8); NEUTROPHILS % (AUTO) 69 % (42-75); PLATELET COUNT 126 10^3/uL (130-400)
[2023-04-08 08:30] LABS: ALBUMIN 3.2 GM/DL (3.2-4.5); POTASSIUM 3.9 MMOL/L (3.6-5.0)
[2023-04-08 08:31] LABS: CALCIUM 8.3 MG/DL (8.5-10.1)
[2023-04-08 08:33] LABS: TOTAL PROTEIN 5.3 GM/DL (6.4-8.2)
[2023-04-08 08:34] LABS: BILIRUBIN,TOTAL 0.5 MG/DL (0.1-1.0)
[2023-04-08 08:36] LABS: CREATININE SERUM 0.87 MG/DL (0.60-1.30)
[2023-04-08] MEDS: HYPOCHLOROUS ACID/NaCl (VASHE) 250 ML IR SCH ×2 (09:00→21:01)
[2023-04-08 11:25] VITALS: BP 136/70
[2023-04-08] MEDS: ENOXAPARIN 40 MG/0.4 ML (LOVENOX) SYR SC SCH (13:43)
[2023-04-08 15:19] VITALS: BP 151/81
[2023-04-08 19:58] VITALS: BP 135/81
[2023-04-08 23:07] VITALS: BP 151/91
--- NOTE | 2023-04-08 23:15 | Progress Note - Surgery ---
Subjective Date Seen by a Provider: Apr 08, 2023 Time Seen by a Provider: 17:10 Subjective/Events-last exam Pain controlled. Tolerating liquids. Occasional nausea. No emesis. No flatus or bm. Denies fever sweats chills shortness of breath or chest pain. Objective Exam Vital Signs Date Time Temp Pulse Resp B/P (MAP) Pulse Ox O2 Delivery O2 Flow Rate FiO2 04/08/23 19:58 36.5 73 18 135/81 (99) 96 Room Air 04/08/23 15:19 36.5 65 18 151/81 (104) 98 Room Air 04/08/23 11:25 36.4 70 18 136/70 (92) 95 Room Air 04/08/23 08:00 Room Air 04/08/23 07:08 36.4 68 17 144/76 (98) 96 Room Air 04/08/23 04:29 36.3 71 16 133/66 (88) 96 04/07/23 23:43 36.7 70 18 127/69 (88) 96 Room Air I & O 04/08/23 07:00 Intake Total 3890 ml Output Total 650 ml Balance 3240 ml Capillary Refill : Less Than 3 Seconds General Appearance: No Apparent Distress, Obese Respiratory: Chest Non Tender, No Accessory Muscle Use, No Respiratory Distress Cardiovascular: Regular Rate, Rhythm Gastrointestinal: soft, tenderness (mostly at incision), other (incision c/d/i) Neurologic/Psychiatric: Alert, Oriented x3 Skin: Normal Color, Warm/Dry Results Lab Laboratory Tests 04/08/23 08:08: White Blood Count 6.0, Red Blood Count 4.53, Hemoglobin 13.3, Hematocrit 40, Mean Corpuscular Volume 87, Mean Corpuscular Hemoglobin 29, Mean Corpuscular Hemoglobin Concent 34, Red Cell Distribution Width 13.8, Platelet Count 126L, Mean Platelet Volume 10.1, Immature Granulocyte % (Auto) 0, Neutrophils (%) (Auto) 69, Lymphocytes (%) (Auto) 20, Monocytes (%) (Auto) 8, Eosinophils (%) (Auto) 3, Basophils (%) (Auto) 0, Neutrophils # (Auto) 4.2, Lymphocytes # (Auto) 1.2, Monocytes # (Auto) 0.5, Eosinophils # (Auto) 0.2, Basophils # (Auto) 0.0, Immature Granulocyte # (Auto) 0.0, Percent Immature Platelet Fraction 2.9, Sodium Level 138, Potassium Level 3.9, Chloride Level 106, Carbon Dioxide Level 25, Anion Gap 7, Blood Urea Nitrogen 7, Creatinine 0.87, Estimat Glomerular Filtration Rate 95, BUN/Creatinine Ratio 8, Glucose Level 192H, Calcium Level 8.3L, Corrected Calcium 8.9, Total Bilirubin 0.5, Aspartate Amino Transf (AST/SGOT) 11, Alanine Aminotransferase (ALT/SGPT) 11, Alkaline Phosphatase 50, Total Protein 5.3L, Albumin 3.2 04/08/23 15:29: Glucometer 221H 04/08/23 20:02: Glucometer 193H Microbiology 04/06/23 MRSA Screen - Final, Complete MRSA not isolated Assessment/Plan Assessment/Plan Assessment/Plan S/P Partial Colectomy Encourage ambulation and IS use. Continue on clears await bowel function and then advance diet labs reviewed. MARILYNN WATTS DO Apr 08, 2023 23:15
[2023-04-09] MEDS: KETOROLAC 30 MG/ML VIAL IVP SCH ×4 (00:48→18:24)
[2023-04-09] MEDS: ACETAMINOPHEN 500 MG TABLET PO SCH ×3 (04:19→21:04)
[2023-04-09 04:45] VITALS: BP 142/78
--- NOTE | 2023-04-09 06:26 | Consultation - Hospitalist ---
HPI History of Present Illness: HPI/Chief Complaint CC: Medical management following bowel resection HPI: This is a 67yoWM clinic patient of [facility] who is s/p uncomplicated partial colon resection due to large polyp. He is walking well and remains on clears. Typical angina reported so restarted Ranexa and Isosorbide. Source: patient, RN/, old records Exam Limitations: no limitations Date Seen 04/09/23 Attending Physician Willi Pierson MD PCP Admitting Physician: Parker Rodriguez DO Attending Physician: Parker Rodriguez DO Referring Physician Date of Admission Apr 06, 2023 at 06:47 Home Medications & Allergies Home Medications Reviewed patient Home Medication Reconciliation performed by pharmacy medication reconciliations diesel automotive technician and/or nursing. Patients Allergies have been reviewed. Allergies Allergies Coded Allergies No Known Allergies (Verified Allergy, Unknown, 03/30/23) Past Nydievw-Zsetmo-Ysnucc Hx Patient Social History Marrital Status: single Employed/Student: retired Tobacco Use?: No Use of E-Cig and/or Vaping dev: No Substance use?: No Alcohol Use?: No Pt feels they are or have been: No Immunizations Up To Date First/Initial COVID19 Vaccinat: 2020 Second COVID19 Vaccination Kevin: 2020 Tetanus Booster (TDap): Unknown Hepatitis A: No Hepatitis B: No Seasonal Allergies Seasonal Allergies: No Current Status Advance Directives: No Communicates: Verbally Primary Language: Divehi Preferred Spoken Language: Divehi Is interpretation needed?: No Implanted or Applied Medical D: Stents Past Medical History Surgeries: Coronary Stent, Gallbladder, Orthopedic Pneumonia Currently Using CPAP: No Currently Using BIPAP: No Angina, Coronary Artery Disease, High Cholesterol, Hypertension Concussion, Headaches /Migraines Sexually Transmitted Disease: No Gastroesophageal Reflux, Diverticulosis, Hemorrhoids, Polyps, Gall Bladder Disease, Irritable Bowel Degenerate Disk Disease, Arthritis, Chronic Back Pain Diabetes, Non-Insulin dep Loss of Vision: Denies Hearing Impairment: Denies Depression Blood Disorders: No Adverse Reaction/Blood Tranf: No Review of Systems Constitutional: see HPI EENTM: no symptoms reported Respiratory: no symptoms reported Cardiovascular: no symptoms reported Gastrointestinal: abdominal pain Genitourinary: no symptoms reported Musculoskeletal: no symptoms reported Skin: no symptoms reported Psychiatric/Neurological: No Symptoms Reported All Other Systems Reviewed Negative Unless Noted: Yes Physical Exam Physical Exam Vital Signs Vital Signs - First Documented 04/06/23 07:23 Temp 36.2 Pulse 79 Resp 20 B/P (MAP) 140/85 (103) Pulse Ox 97 O2 Delivery Room Air Capillary Refill : Less Than 3 Seconds Height, Weight, BMI Height: 6'1.00" Weight: 280lbs. 0.0oz. [id number]; 34.30 BMI Method: General Appearance: No Apparent Distress, Chronically ill, Obese Respiratory: Chest Non Tender, No Accessory Muscle Use, No Respiratory Distress Cardiovascular: Regular Rate, Rhythm Neurologic/Psychiatric: Alert, Oriented x3 Skin: Normal Color, Warm/Dry Results Results/Procedures Labs Laboratory Tests 04/08/23 08:08 04/09/23 06:50 Patient resulted labs reviewed. Assessment/Plan Assessment and Plan Assess & Plan/Chief Complaint Assessment: s/p uncomplicated partial colon resection due to large polyp Post op ileus DM HTN CAD Angina Plan: Monitor sugar Nausea management АЛЕКСАНДР UPTON DO Apr 09, 2023 06:26
[2023-04-09 06:57] LABS: EOSINOPHILS # (AUTO) 0.2 10^3/uL (0.0-0.3); EOSINOPHILS % (AUTO) 3 % (0-10); MEAN PLATELET VOLUME 10.2 fL (9.0-12.2); MONOCYTES # (AUTO) 0.4 10^3/uL (0.0-1.0); MONOCYTES % (AUTO) 7 % (0-12); PLATELET COUNT 135 10^3/uL (130-400)
[2023-04-09 06:58] LABS: BASOPHILS % (AUTO) 1 % (0-10); HEMATOCRIT 39 % (40-54); HEMOGLOBIN 13.4 g/dL (13.3-17.7); LYMPHOCYTES # (AUTO) 1.3 10^3/uL (1.0-4.0); LYMPHOCYTES % (AUTO) 22 % (12-44); MEAN CORPUSCULAR HEMOGLOBIN 30 pg (25-34); MEAN CORPUSCULAR HGB CONC 34 g/dL (32-36); MEAN CORPUSCULAR VOLUME 87 fL (80-99); NEUTROPHILS % (AUTO) 68 % (42-75); WHITE BLOOD COUNT 5.9 10^3/uL (4.3-11.0)
[2023-04-09 07:08] LABS: ALBUMIN 3.2 GM/DL (3.2-4.5); POTASSIUM 3.6 MMOL/L (3.6-5.0)
[2023-04-09 07:10] LABS: CALCIUM 8.3 MG/DL (8.5-10.1)
[2023-04-09 07:11] LABS: TOTAL PROTEIN 5.5 GM/DL (6.4-8.2)
[2023-04-09 07:13] LABS: BILIRUBIN,TOTAL 0.5 MG/DL (0.1-1.0)
[2023-04-09 07:14] LABS: CREATININE SERUM 0.82 MG/DL (0.60-1.30)
[2023-04-09 07:21] VITALS: BP 150/81
[2023-04-09] MEDS: PANTOPRAZOLE 40 MG (PROTONIX) VIAL IVP SCH (08:56)
[2023-04-09] MEDS: ISOSORBIDE MONONITRATE 60 MG (IMDUR) TAB PO SCH (08:56)
[2023-04-09] MEDS: HYPOCHLOROUS ACID/NaCl (VASHE) 250 ML IR SCH ×2 (09:04→19:40)
[2023-04-09 11:11] VITALS: BP 137/76
[2023-04-09] MEDS ORDERED: ACETAMINOPHEN 325 MG TABLET PO PRN (12:00)
[2023-04-09] MEDS: ENOXAPARIN 40 MG/0.4 ML (LOVENOX) SYR SC SCH (12:05)
--- NOTE | 2023-04-09 13:04 | Progress Note - Surgery ---
Subjective Date Seen by a Provider: Apr 09, 2023 Time Seen by a Provider: 13:04 Subjective/Events-last exam Ambulating. Tolerating clears. Pain controlled. Using IS. Denies n/v fever sweats chills shortness of breath or chest pain. Objective Exam Vital Signs Date Time Temp Pulse Resp B/P (MAP) Pulse Ox O2 Delivery O2 Flow Rate FiO2 04/09/23 11:11 36.5 70 16 137/76 (96) 96 Room Air 04/09/23 08:30 Room Air 04/09/23 07:21 36.5 62 16 150/81 (104) 96 Room Air 04/09/23 04:45 36.2 69 18 142/78 (99) 96 Room Air 04/08/23 23:07 36.0 85 18 151/91 (111) 97 Room Air 04/08/23 20:00 Room Air 04/08/23 19:58 36.5 73 18 135/81 (99) 96 Room Air 04/08/23 15:19 36.5 65 18 151/81 (104) 98 Room Air I & O 04/09/23 07:00 Intake Total 2600 ml Balance 2600 ml Capillary Refill : Less Than 3 Seconds General Appearance: No Apparent Distress, Chronically ill, Obese Respiratory: Chest Non Tender, No Accessory Muscle Use, No Respiratory Distress Cardiovascular: Regular Rate, Rhythm Gastrointestinal: soft, tenderness (mostly at incision), other (incision c/d/i) Neurologic/Psychiatric: Alert, Oriented x3 Skin: Normal Color, Warm/Dry Lymphatic: No Adenopathy Results Lab Laboratory Tests 04/08/23 15:29: Glucometer 221H 04/08/23 20:02: Glucometer 193H 04/09/23 04:22: Glucometer 166H 04/09/23 06:50: White Blood Count 5.9, Red Blood Count 4.50, Hemoglobin 13.4, Hematocrit 39L, M francisco Corpuscular Volume 87, Mean Corpuscular Hemoglobin 30, Mean Corpuscular Hemoglobin Concent 34, Red Cell Distribution Width 13.7, Platelet Count 135, Mean Platelet Volume 10.2, Immature Granulocyte % (Auto) 0, Neutrophils (%) (Auto) 68, Lymphocytes (%) (Auto) 22, Monocytes (%) (Auto) 7, Eosinophils (%) (Auto) 3, Basophils (%) (Auto) 1, Neutrophils # (Auto) 4.0, Lymphocytes # (Auto) 1.3, Monocytes # (Auto) 0.4, Eosinophils # (Auto) 0.2, Basophils # (Auto) 0.0, Immature Granulocyte # (Auto) 0.0, Percent Immature Platelet Fraction 3.1, Sodium Level 139, Potassium Level 3.6, Chloride Level 107, Carbon Dioxide Level 23, Anion Gap 9, Blood Urea Nitrogen 7, Creatinine 0.82, Estimat Glomerular Filtration Rate 97, BUN/Creatinine Ratio 9, Glucose Level 169H, Calcium Level 8.3L, Corrected Calcium 8.9, Total Bilirubin 0.5, Aspartate Amino Transf (AST/ SGOT) 12, Alanine Aminotransferase (ALT/SGPT) 10, Alkaline Phosphatase 52, Total Protein 5.5L, Albumin 3.2 04/09/23 11:12: Glucometer 170H Microbiology 04/06/23 MRSA Screen - Final, Complete MRSA not isolated Assessment/Plan Assessment/Plan Assessment/Plan S/P Partial Colectomy Encourage ambulation and IS use. Continue on clears await bowel function and then advance diet IS Lovenox for DVT prophylaxis MARILYNN WATTS DO Apr 09, 2023 13:04
[2023-04-09 15:29] VITALS: BP 117/70
[2023-04-09] MEDS: RANOLAZINE ER 500 MG TAB (RANEXA) PO SCH (19:40)
[2023-04-09 19:56] VITALS: BP 135/70
[2023-04-09] MEDS ORDERED: ROSUVASTATIN 20 MG (CRESTOR) TABLET PO SCH (21:00)
[2023-04-09 23:34] VITALS: BP 117/62
[2023-04-10] MEDS: KETOROLAC 30 MG/ML VIAL IVP SCH ×3 (00:40→12:43)
[2023-04-10 03:17] VITALS: BP 125/65
[2023-04-10] MEDS: ACETAMINOPHEN 500 MG TABLET PO SCH ×2 (05:04→12:44)
[2023-04-10 05:08] LABS: EOSINOPHILS # (AUTO) 0.2 10^3/uL (0.0-0.3)
[2023-04-10 05:10] LABS: BASOPHILS % (AUTO) 1 % (0-10); EOSINOPHILS % (AUTO) 4 % (0-10); HEMATOCRIT 36 % (40-54); HEMOGLOBIN 12.3 g/dL (13.3-17.7); LYMPHOCYTES # (AUTO) 1.2 10^3/uL (1.0-4.0); LYMPHOCYTES % (AUTO) 23 % (12-44); MEAN CORPUSCULAR HEMOGLOBIN 30 pg (25-34); MEAN CORPUSCULAR HGB CONC 34 g/dL (32-36); MEAN CORPUSCULAR VOLUME 86 fL (80-99); MEAN PLATELET VOLUME 10.5 fL (9.0-12.2); MONOCYTES # (AUTO) 0.4 10^3/uL (0.0-1.0); MONOCYTES % (AUTO) 7 % (0-12); NEUTROPHILS # (AUTO) 3.6 10^3/uL (1.8-7.8); NEUTROPHILS % (AUTO) 66 % (42-75); PLATELET COUNT 136 10^3/uL (130-400); WHITE BLOOD COUNT 5.4 10^3/uL (4.3-11.0)
[2023-04-10 05:27] LABS: ALBUMIN 3.2 GM/DL (3.2-4.5); BILIRUBIN,TOTAL 0.5 MG/DL (0.1-1.0); CALCIUM 8.2 MG/DL (8.5-10.1); CREATININE SERUM 0.83 MG/DL (0.60-1.30); POTASSIUM 3.7 MMOL/L (3.6-5.0); TOTAL PROTEIN 5.4 GM/DL (6.4-8.2)
--- NOTE | 2023-04-10 07:40 | Progress Note - Hospitalist ---
Subjective HPI/CC On Admission Date Seen by Provider: Apr 10, 2023 Time Seen by Provider: 11:00 CC: Medical management following bowel resection HPI: This is a 67yoWM clinic patient of [facility] who is s/p uncomplicated partial colon resection due to large polyp. He is walking well and remains on clears. Typical angina reported so restarted Ranexa and Isosorbide. Subjective/Events-last exam Doing well Set for DC Flatus and liquid stool noted Review of Systems General: Fatigue, Malaise Gastrointestinal: Abdominal Pain Objective Exam Vital Signs Vital Signs Date Time Temp Pulse Resp B/P (MAP) Pulse Ox O2 Delivery O2 Flow Rate FiO2 04/10/23 11:30 36.4 66 16 145/89 (107) 97 Room Air 04/10/23 03:17 0.00 0.00 Capillary Refill : Less Than 3 Seconds General Appearance: No Apparent Distress, WD/WN, Chronically ill Respiratory: Lungs Clear, Normal Breath Sounds Neurologic/Psychiatric: Alert, Oriented x3, No Motor/Sensory Deficits, Normal Mood/Affect Skin: Normal Color, Warm/Dry Results/Procedures Lab Laboratory Tests 04/10/23 05:00 Patient resulted labs reviewed. Assessment/Plan Assessment and Plan Assess & Plan/Chief Complaint Assessment: s/p uncomplicated partial colon resection due to large polyp Post op ileus DM HTN CAD Angina Plan: DC home АЛЕКСАНДР UPTON DO Apr 10, 2023 07:40
[2023-04-10 07:43] VITALS: BP 129/71
[2023-04-10] MEDS: RANOLAZINE ER 500 MG TAB (RANEXA) PO SCH (08:05)
[2023-04-10] MEDS: HYPOCHLOROUS ACID/NaCl (VASHE) 250 ML IR SCH (08:05)
[2023-04-10] MEDS: ISOSORBIDE MONONITRATE 60 MG (IMDUR) TAB PO SCH (08:05)
[2023-04-10] MEDS ORDERED: meTOprolol SUCCINATE 100 MG (TOPROL XL) TAB PO SCH (09:00)
[2023-04-10] MEDS ORDERED: PANTOPRAZOLE 40 MG (PROTONIX) TAB PO SCH (09:00)
--- NOTE | 2023-04-10 10:53 | Progress Note - Surgery ---
Subjective Date Seen by a Provider: Apr 10, 2023 Time Seen by a Provider: 10:53 Subjective/Events-last exam Tolerating liquids. Having bowel function. Pain controlled. Denies n/v fever sweats chills shortness of breath or chest pain. Objective Exam Vital Signs Date Time Temp Pulse Resp B/P (MAP) Pulse Ox O2 Delivery O2 Flow Rate FiO2 04/10/23 08:13 Room Air 04/10/23 07:43 36.6 60 16 129/71 (90) 96 Room Air 04/10/23 03:17 36.4 68 16 125/65 (85) 96 Room Air 0.00 0.00 04/09/23 23:34 36.6 61 16 117/62 (80) 96 Room Air 0.00 0.00 04/09/23 20:00 Room Air 04/09/23 19:56 36.3 65 16 135/70 (91) 97 Room Air 04/09/23 15:29 36.3 62 16 117/70 (86) 97 Room Air 04/09/23 11:11 36.5 70 16 137/76 (96) 96 Room Air I & O 04/10/23 07:00 Intake Total 2590 ml Balance 2590 ml Capillary Refill : Less Than 3 Seconds General Appearance: No Apparent Distress, Chronically ill, Obese Respiratory: Chest Non Tender, No Accessory Muscle Use, No Respiratory Distress Cardiovascular: Regular Rate, Rhythm Gastrointestinal: soft, tenderness (mostly at incision), other (incision c/d/i) Neurologic/Psychiatric: Alert, Oriented x3 Skin: Normal Color, Warm/Dry Lymphatic: No Adenopathy Results Lab Laboratory Tests 04/09/23 11:12: Glucometer 170H 04/09/23 15:32: Glucometer 157H 04/09/23 20:06: Glucometer 155H 04/10/23 05:00: White Blood Count 5.4, Red Blood Count 4.17L, Hemoglobin 12.3L, Hematocrit 36L, Mean Corpuscular Volume 86, Mean Corpuscular Hemoglobin 30, Mean Corpuscular Hemoglobin Concent 34, Red Cell Distribution Width 13.7, Platelet Count 136, Mean Platelet Volume 10.5, Immature Granulocyte % (Auto) 0, Neutrophils (%) (Auto) 66, Lymphocytes (%) (Auto) 23, Monocytes (%) (Auto) 7, Eosinophils (%) (Auto) 4, Basophils (%) (Auto) 1, Neutrophils # (Auto) 3.6, Lymphocytes # (Auto) 1.2, Monocytes # (Auto) 0.4, Eosinophils # (Auto) 0.2, Basophils # (Auto) 0.0, Immature Granulocyte # (Auto) 0.0, Percent Immature Platelet Fraction 3.9, Sodium Level 136, Potassium Level 3.7, Chloride Level 105, Carbon Dioxide Level 23, Anion Gap 8, Blood Urea Nitrogen 8, Creatinine 0.83, Estimat Glomerular Filtration Rate 97, BUN/Creatinine Ratio 10, Glucose Level 133H, Calcium Level 8.2L, Corrected Calcium 8.8, Total Bilirubin 0.5, Aspartate Amino Transf (AST/SGOT) 17, Alanine Aminotransferase (ALT/SGPT) 14, Alkaline Phosphatase 49, Total Protein 5.4L, Albumin 3.2 Microbiology 04/06/23 MRSA Screen - Final, Complete MRSA not isolated Assessment/Plan Assessment/Plan Assessment/Plan S/P Partial Colectomy Having bowel function. Advance diet. If tolerates will dc home. MARILYNN WATTS DO Apr 10, 2023 10:53
[2023-04-10] MEDS ORDERED: ACHD5005 PO (11:15)
[2023-04-10] MEDS ORDERED: DOCU-143 PO (11:15)
--- NOTE | 2023-04-10 11:16 | Discharge Inst-Simple/Standard ---
Discharge Inst-Standard Discharge Medications New, Converted or Re-Newed RX: Transmitted to Pharmacy Patient Instructions/Follow Up Plan of Care/Instructions/FU: 1 week Jennifer Activity as Tolerated: No Discharge Diet: Soft Diet Other Inst to Patient Follow up Appt: Make appointment for 1 week Jennifer. Instructions: No lifting greater than 10 pounds. No strenuous activity. May shower, no tub bath or soaking. Use incentive spirometer at home as directed. No Smoking Skin/Wound Care: Keep clean and dry. Symptoms to Report: Appetite Changes, Extremity Discoloration, Numbness/Tingling, Swelling Increased, Bleeding Excessive, Eyesight Changes, Pain Increased, Urine Color Change, Constipation(Persistent), Fever over 101 degree F, Pain/Pressure in chest, Urinating Difficulty, Cough Up/Vomit Blood, Heart Beat Irreg/Pounding, Pain/Pressure in jaw, Vaginal Bleeding Increase, Cramps in feet or legs, Lightheadedness, Pain/Pressure in shoulder, Diarrhea(Persistent), Memory Changes Suddenly, Questions/Concerns, Weight gain consecutive days, Dizziness/Fainting, Nausea/Vomiting, Shortness of Breath, Weight gain over 2 pounds If questions or concerns contact your physician Or seek help at emergency department. MARILYNN WATTS DO Apr 10, 2023 11:16
[2023-04-10 11:30] VITALS: BP 145/89
[2023-04-10] MEDS: ENOXAPARIN 40 MG/0.4 ML (LOVENOX) SYR SC SCH (12:43)
== END 2023-04-10 14:14 | disposition home or self-care (01) | DRG 330 ==
LOC: 4TH 06:47 → SURG 06:48 → 4TH 11:55
PROVIDERS: ADMIT Surgery; ATTEND Surgery
PROC: 0DBL0ZZ Excision of Transverse Colon, Open Approach (ICD-10-PCS; principal; 2023-04-06 09:17)
DX: D12.3 Benign neoplasm of transverse colon (principal); I42.0 Dilated cardiomyopathy; I25.119 Atherosclerotic heart disease of native coronary artery with unspecified angina pectoris; I25.5 Ischemic cardiomyopathy; E78.00 Pure hypercholesterolemia, unspecified; I10 Essential (primary) hypertension; K21.9 Gastro-esophageal reflux disease without esophagitis; E11.9 Type 2 diabetes mellitus without complications; F32.A Depression, unspecified; Z95.5 Presence of coronary angioplasty implant and graft
CPT/HCPCS: 36415; 80053; 82947; 85025; 87081; 88309; 94664

== ENCOUNTER 2023-04-11 01:44 | Emergency (ER) | payer MEDICAID ==
[~2023-04-11] VITALS: Ht 182.8 cm; Wt 123.5 kg
[~2023-04-11 01:44] MED LIST changes: +AMOX1TAB12 PO; +DOCU-143 PO
[2023-04-11] MEDS ORDERED: KETOROLAC 15 MG/ML VIAL IVP STA (01:58)
[2023-04-11] MEDS ORDERED: NS IV 1000 ML 1,000 ML IV STA (01:58)
[2023-04-11 02:05] LABS: BASOPHILS % (AUTO) 1 % (0-10); EOSINOPHILS # (AUTO) 0.1 10^3/uL (0.0-0.3); EOSINOPHILS % (AUTO) 2 % (0-10); HEMATOCRIT 43 % (40-54); HEMOGLOBIN 14.4 g/dL (13.3-17.7); LYMPHOCYTES # (AUTO) 1.1 10^3/uL (1.0-4.0); LYMPHOCYTES % (AUTO) 15 % (12-44); MEAN CORPUSCULAR HEMOGLOBIN 29 pg (25-34); MEAN CORPUSCULAR HGB CONC 34 g/dL (32-36); MEAN CORPUSCULAR VOLUME 87 fL (80-99); MEAN PLATELET VOLUME 9.7 fL (9.0-12.2); MONOCYTES # (AUTO) 0.5 10^3/uL (0.0-1.0); MONOCYTES % (AUTO) 6 % (0-12); NEUTROPHILS # (AUTO) 5.5 10^3/uL (1.8-7.8); NEUTROPHILS % (AUTO) 76 % (42-75); PLATELET COUNT 182 10^3/uL (130-400); WHITE BLOOD COUNT 7.2 10^3/uL (4.3-11.0)
[2023-04-11] MEDS ORDERED: NS 100 ML (IVPB) BAG IV ONE (02:15)
[2023-04-11] MEDS ORDERED: HOLD METFORMIN - RECEIVED CONTRAST 20 ML VIAL IV SCH (02:15)
[2023-04-11] MEDS ORDERED: IOHEXOL 350 MG/ML 100 ML (OMNIPAQUE 350) VIAL IV ONE (02:15)
[2023-04-11] MEDS ORDERED: CATHETER FLUSH 10 ML SYR IV PRN (02:15)
--- NOTE | 2023-04-11 02:16 | ED GI ---
General Chief Complaint: Post OP Complications/Pain Stated Complaint: WESTON CAME LOOSE AFTER SURGERY WED Source of Information: Patient, Old Records (Surgery records from [facility] Dr. Turpin and Dr. Watts from his recent admit, colon resection and discharge 04/10) History of Present Illness Date Seen by Provider: Apr 11, 2023 Time Seen by Provider: 01:48 Initial Comments 67-year-old male presenting with complaints of bleeding from surgery site. He had rolled over in bed and felt something catch and pull on one of the weston. He was worried that his flannel sheets had pulled out a staple as he had a large amount of blood on the bed and sheets at home. He states that he is had some gas but only a small amount of mostly liquid stool since surgery. He felt like he had increased gas tonight. He denies any nausea or vomiting. He was worried that he had ripped open the incision or pulled out some of the weston securing the incision so he came to the emergency department. He did drive himself here. He states that he did not have anything for pain at home since his prescriptions were sent to [facility] and they did not have a pharmacist on Tuesday. Timing/Duration: 1/2 Hour Severity/Quality: Moderate, Sharp Location: Periumbilical (Along incision site) Activities at Onset: Sleeping Modifying Factors: Worsens With Movement, Worsens With Palpation Associated Symptoms: No Back Pain, No Chest Pain, No Diaphoresis, No Fever/Chills, No Fatigue, No Headache, No Heartburn, No Nausea/Vomiting, No Rash, No Shortness of Air, No Syncope, No Weakness Allergies and Home Medications Allergies Coded Allergies: No Known Allergies (Verified Allergy, Unknown, 03/30/23) Patient Home Medication List Home Medication List Reviewed: Yes Acetaminophen (Tylenol) 325 Mg Tablet, 650 MG PO Q6H PRN for PAIN-MILD (1-4), (Reported) Entered as Reported by: NAEEM BUENO on 02/08/23 0755 Amoxicillin/Potassium Clav (Amox Tr-K Clv 875-125 mg Tab) 875 Mg-125 Mg Tablet, 1 EA PO Q12H, (Reported) Entered as Reported by: BERENICE OTTO on 04/07/23 1055 Aspirin (Aspirin EC) 81 Mg Tablet., 81 MG PO BID, (Reported) Entered as Reported by: NAEEM BUENO on 02/08/23 075 Clopidogrel Bisulfate (Clopidogrel) 75 Mg Tablet, 75 MG PO DAILY, (Reported) Entered as Reported by: NAEEM BUENO on 02/08/23 075 Dapagliflozin Propanediol (Farxiga) 10 Mg Tablet, 10 MG PO DAILY, (Reported) Entered as Reported by: RAFAEL ADAMS on 08/11/21 08 Docusate Sodium (Colace) 100 Mg Capsule, 100 MG PO BID Prescribed by: MARILYNN WATTS on 04/10/23 111 Glyburide (Glyburide) 5 Mg Tablet, 5 MG PO DAILY, (Reported) Entered as Reported by: BERENICE OTTO on 05/08/19 131 Hydrocodone/Acetaminophen (Hydrocodone-Acetamin 5-325 mg) 5 Mg-325 Mg Tablet, 1 EACH PO Q4H PRN for PAIN-MODERATE (5-7) Prescribed by: MARILYNN WATTS on 04/10/23 111 Isosorbide Mononitrate (Isosorbide Mononitrate ER) 60 Mg Tab, 60 MG PO DAILY, (Reported) Entered as Reported by: RAFAEL ADAMS on 08/11/21 08 Metformin HCl (Metformin HCl) 1,000 Mg Tablet, 1,000 MG PO BID, (Reported) Entered as Reported by: Isabel Beckman on 03/30/23 0941 Metoprolol Succinate (Metoprolol Succinate) 100 Mg Tab.er.24h, 100 MG PO DAILY, (Reported) Entered as Reported by: RAFAEL ADAMS on 08/11/21 08 Multivits,Ca,Min/Iron/FA/Lycop (Centrum Men's Tablet) 8 Mg Iron-200 Mcg-600 Mcg Tablet, 1 EACH PO DAILY, (Reported) Entered as Reported by: NAEEM BUENO on 02/08/23 075 Pantoprazole Sodium (Protonix) 40 Mg Tablet.dr, 40 MG PO DAILY, (Reported) Entered as Reported by: BERENICE OTTO on 05/08/19 1311 Ranolazine (Ranolazine ER) 1,000 Mg Tab.er.12h, 1,000 MG PO BID, (Reported) Entered as Reported by: NAEEM BUENO on 02/08/23 075 Rosuvastatin Calcium (Rosuvastatin Calcium) 20 Mg Tablet, 20 MG PO HS, (Reported) Entered as Reported by: NAEEM BUENO on 02/08/23 0808 Tramadol HCl (Tramadol HCl) 50 Mg Tablet, 100 MG PO TID PRN for PAIN-MODERATE (5-7), (Reported) Entered as Reported by: NAEEM BUENO on 02/08/23 0755 Discontinued Medications Neomycin Sulfate (Neomycin Sulfate) 500 Mg Tablet, 500 MG PO DAILY, (Reported) Discontinued Reason: No Longer Taking Entered as Reported by: Isabel Beckman on 03/30/23 0925 Review of Systems Review of Systems Constitutional: No chills, No fever EENTM: No Symptoms Reported Respiratory: No Symptoms Reported Cardiovascular: No Symptoms Reported Gastrointestinal: See HPI Genitourinary: No Symptoms Reported Musculoskeletal: no symptoms reported Skin: see HPI Psychiatric/Neurological: Anxiety Past Lrqlznk-Etxpqh-Ctepms Hx Patient Social History Tobacco Use?: No Smoking Status: Unknown if Ever Smoked Substance use?: No Alcohol Use?: No Pt feels they are or have been: No Immunizations Up To Date Tetanus Booster (TDap): Unknown First/Initial COVID19 Vaccinat: 2020 Second COVID19 Vaccination Kevin: 2020 Third COVID19 Vaccination Date: 2021 Seasonal Allergies Seasonal Allergies: No Past Medical History Surgery/Hospitalization HX: Knee sx, gallbladder, carpal tunnel sx, heart stents, colon resection march 2023 Surgeries: Yes (3 CARDIAC CATHS, PERIPHERAL ANGIOGRAPHY, EGD, COLO, BILAT CTR, R SCOPE KNEE) Coronary Stent, Gallbladder, Orthopedic Respiratory: Yes Pneumonia Currently Using CPAP: No Currently Using BIPAP: No Cardiac: Yes Angina, Coronary Artery Disease, High Cholesterol, Hypertension Neurological: Yes Concussion, Headaches /Migraines Sexually Transmitted Disease: No Genitourinary: No Gastrointestinal: Yes (DIVERTICULITIS) Gastroesophageal Reflux, Diverticulosis, Hemorrhoids, Polyps, Gall Bladder Disease, Irritable Bowel Musculoskeletal: Yes Degenerate Disk Disease, Arthritis, Chronic Back Pain Endocrine: Yes Diabetes, Non-Insulin dep HEENT: No Loss of Vision: Denies Hearing Impairment: Denies Cancer: No Psychosocial: Yes Depression Integumentary: No Blood Disorders: No Adverse Reaction/Blood Tranf: No Physical Exam Vital Signs Vital Signs - First Documented 04/11/23 01:50 Temp 36.7 Pulse 100 Resp 28 B/P (MAP) 154/112 (126) Pulse Ox 96 O2 Delivery Room Air Capillary Refill : Height/Weight/BMI Height: 6'1.00" Weight: 280lbs. 0.0oz. 127.646070hh; 34.30 BMI Method: General Appearance: WD/WN, obese, other (Appears anxious) Respiratory: chest non-tender, lungs clear, normal breath sounds Cardiovascular: normal peripheral pulses, regular rate, rhythm Gastrointestinal: soft, no pulsatile mass, abnormal bowel sounds (Hyperactive bowel sounds), guarding; No rebound; tenderness (Tender along the incision. There is no fluctuance. With palpation he does have some blood coming out of the incision. There are no loose or missing weston that I can see.) Neurologic/Psychiatric: alert, oriented x 3 Skin: warm/dry Progress/Results/Core Measures Results/Orders Lab Results Laboratory Tests Test 04/11/23 01:55 Range/Units White Blood Count 7.2 4.3-11.0 10^3/uL Red Blood Count 4.94 4.30-5.52 10^6/uL Hemoglobin 14.4 13.3-17.7 g/dL Hematocrit 43 40-54 % Mean Corpuscular Volume 87 80-99 fL Mean Corpuscular Hemoglobin 29 25-34 pg Mean Corpuscular Hemoglobin Concent 34 32-36 g/dL Red Cell Distribution Width 13.6 10.0-14.5 % Platelet Count 182 130-400 10^3/uL Mean Platelet Volume 9.7 9.0-12.2 fL Immature Granulocyte % (Auto) 0 % Neutrophils (%) (Auto) 76 H 42-75 % Lymphocytes (%) (Auto) 15 12-44 % Monocytes (%) (Auto) 6 0-12 % Eosinophils (%) (Auto) 2 0-10 % Basophils (%) (Auto) 1 0-10 % Neutrophils # (Auto) 5.5 1.8-7.8 10^3/uL Lymphocytes # (Auto) 1.1 1.0-4.0 10^3/uL Monocytes # (Auto) 0.5 0.0-1.0 10^3/uL Eosinophils # (Auto) 0.1 0.0-0.3 10^3/uL Basophils # (Auto) 0.0 0.0-0.1 10^3/uL Immature Granulocyte # (Auto) 0.0 0.0-0.1 10^3/uL My Orders Orders - DANIEL CUNHA MD Ed Iv/Invasive Line Start (04/11/23 01:58) Cbc With Automated Diff (04/11/23 01:58) Ct Abdomen/Pelvis W (04/11/23 01:58) Ketorolac Injection (Toradol Injection) (04/11/23 01:58) Ns Iv 1000 Ml (Sodium Chloride 0.9%) (04/11/23 01:58) Iohexol Injection (Omnipaque 350 Mg/Ml 1 (04/11/23 02:15) Received Contrast (Hold Metformin- Contr (04/11/23 02:15) Sodium Chloride Flush (Catheter Flush Sy (04/11/23 02:15) Ns (Ivpb) (Sodium Chloride 0.9% Ivpb Bag (04/11/23 02:15) Rx-Hydrocodone/Apap 5-325 Mg (Rx-Vicodin (04/11/23 03:00) Medications Given in ED Current Medications Medications Dose Ordered Sig/Cuauhtemoc Route Start Time Stop Time Status Last Admin Dose Admin Iohexol 80 ml ONCE ONCE IV 04/11/23 02:15 04/11/23 02:16 DC 04/11/23 02:39 80 ML Sodium Chloride 10 ml NEEDED PRN IV 04/11/23 02:15 04/11/23 02:39 10 ML Sodium Chloride 100 ml ONCE ONCE IV 04/11/23 02:15 04/11/23 02:16 DC 04/11/23 02:39 100 ML Vital Signs/I&O 04/11/23 04/11/23 01:50 02:26 Temp 36.7 36.7 Pulse 100 Resp 28 B/P (MAP) 154/112 (126) Pulse Ox 96 O2 Delivery Room Air Progress Progress Note #1: Progress Note Potential diagnosis of postoperative seroma, postoperative hematoma surgical incision dehiscence. Obtain blood count to ensure that he has not had a large amount of blood loss compared to blood work during his admission. CT scan of the abdomen and pelvis with IV contrast to ensure he have a large fluid collection or postoperative complication. Administer normal saline 1 L IV fluid bolus for hydration. Toradol 15 mg IV for pain. Progress Note #2: Time: 02:08 Progress Note Complete blood count shows white blood cells 7.2 not elevated for infection. His hemoglobin is up at 14.4. He appears stable or improved from blood work done on the . Obtain CT scan with IV contrast to look for pathology related to his surgery and if he has a large hematoma or seroma around the incision. Progress Note #3: Time: 02:49 Progress Note On my personal interpretation and review of CT scan of the abdomen and pelvis with IV contrast he has a large apparent hematoma or seroma underneath the incision. He has some postoperative stranding and inflammation in the abdomen itself. His blood count was stable or improved. He was afebrile. I called and spoke with Dr. Watts the on-call surgeon who discharged him during the day. He was agreeable with the patient just having a bulky dressing to help absorb any further bleeding and to have the patient call the clinic to be seen if he was having continued bleeding or if the bleeding changed and he was having a purulent drainage or further concerns and complications. Reassured patient that this was some blood and fluid that had collected with the surgery and will likely continue to bleed and ooze until all the blood has leaked out or he has enough pressure off of the incision that it reseals. Send with Hydrocodone/Apap 5/325 4 pack or pills so he has something for pain if needed prior to [facility] opening this am. 0258 I reviewed the radiologist report on the CT scan of the abdomen and pelvis with IV contrast. The increase that there was superficial hematoma under the incision. They also felt like there could be some active bleeding into the hematoma which would explain the swelling that the patient was describing. He had reported that the incision was flat when he left the hospital but when he woke up with the bleeding and it had been bulging out. He has continued to have some oozing here in the emergency department. Will apply the pressure dressing with a bulky dressing and send him with some supplies for dressing changes as needed at home but at least once to twice a day or if tracings are soaked and saturated. He is to call the surgery clinic in the morning and arrange follow- up and be seen sooner if having worsening bleeding or additional problems. Diagnostic Imaging Diagonstic Imaging: CT Plain Films/CT/US/NM/MRI: abdomen, pelvis Comments CT abdomen and pelvis with IV contrast Impression: 1. There is a subcutaneous hematoma immediately deep to the superficial skin weston at the midline abdomen measuring 3.1 x 4.1 x 7 cm. There is subtle curvilinear hyperdensity centrally consistent with active bleeding within the hematoma. There are small vascular structures along the anterior midline abdominal wall without definitive feeding vessel extending into the hematoma identified. There is more diffuse hyperdense subcutaneous fat stranding about the anterior abdominal wall consistent with more diffuse hemorrhage products. No abdominal wall hernia or hematoma. No extension into the intraperitoneal space. 2. Postsurgical changes consistent with segmental colonic resection in the transverse colon. No evidence for high-grade bowel obstruction. Trace pneumoperitoneum is presumed related to recent postoperative status. 3. Prominent interlobular septal thickening at the lung bases. Findings suggest pulmonary edema. Read by radiologist Dr. Virgil Dalton MD at [phone] and faxed at [phone] Reviewed: Reviewed Night Carlos Eduardo Study, Reviewed by Me Departure Impression Primary Impression: Postoperative bleeding from incision Additional Impression: Postoperative hemorrhage of subcutaneous tissue following non-dermatologic p rocedure Disposition: 01 HOME, SELF-CARE Condition: Improved Departure-Patient Inst. Decision time for Depature: 02:55 Referrals: NOHELIA TURPIN MAXWELL MD (PCP/Family) Primary Care Physician Patient Instructions: Bleeding After Surgery Add. Discharge Instructions: Keep a bulky dressing over the incision for the next 2-3 days to help absorb any further drainage and bleeding. If having change in the drainage, pus draining from the incision or other changes then call Dr. Turpin and the surgery clinic for follow up. Copy Copies To 1: NOHELIA TURPIN DO Copies To 2: MARILYNN WATTS MARC E MD Apr 11, 2023 02:16
[2023-04-11 03:15] VITALS: BP 151/94
--- NOTE | 2023-04-11 08:06 | Diagnostic Imaging Report ---
EXAMINATION: CT abdomen and pelvis with intravenous contrast. TECHNIQUE: Multiple contiguous axial images were obtained through the abdomen and pelvis after the uneventful administration of intravenous contrast. All CT scans use one or more of the following dose optimizing techniques: automated exposure control, MA and/or KvP adjustment based on patient size and exam type or iterative reconstruction. HISTORY: postop bleeding from abd incision, s/p colon resection 04/06 COMPARISON: 09/23/2022 FINDINGS: Lung bases: Bibasilar dependent atelectasis. Solid organs: The liver is normal without focal lesion. The gallbladder is surgically absent. There is no biliary ductal dilation. Small cystic lesion within the uncinate process measuring up to 1.2 cm, unchanged from prior exam. Spleen is normal. Adrenal glands are normal. Multiple bilateral renal cysts are present. There is no hydronephrosis. Bowel: The stomach and small bowel are normal without obstruction. There is scattered colonic diverticulosis. Surgical changes of the transverse colon. The appendix is normal. Peritoneum: There is no intraperitoneal free fluid or free air. No suspicious lymphadenopathy. Vasculature: Calcification of the aorta without aneurysm. Musculoskeletal: Degenerative changes of the spine without suspicious osseous lesion or compression fracture. There is a hyperdense fluid collection seen within the soft tissues just deep to the incision measuring up to 4.2 x 3.3 cm. There is a small linear focus of contrast enhancement suggesting active extravasation or small vessel. Pelvis: The prostate gland is normal. The urinary bladder is normal. IMPRESSION: 1. Fluid collection along the incision with internal blood products and possible contrast extravasation or small vessel within the collection. 2. Agree with preliminary interpretation. Dictated by: Dictated on workstation # [id number]
== END 2023-04-11 03:15 | disposition home or self-care (01) ==
LOC: EDUNIT# 01:44 → ER FS 01:46
DX: K94.01 Colostomy hemorrhage (principal)
CPT/HCPCS: 36415; 74177; 85025; Q9967